=== PATIENT | male | born 1950 | race Caucasian/White ===

== ENCOUNTER 2019-08-07 12:05 | Inpatient (IN) | payer MEDICARE, OTHER ==
[~2019-08-07] VITALS: Ht 170.2 cm; Wt 82.3 kg
--- OUTSIDE RECORDS SUMMARY | 2019-08-07 12:09 | XMS REPORT ---
Author Author [facility] Address Unknown Phone Unavailable Care Team Providers Care Station Worker Name Role Phone Unavailable Unavailable Payers Payer Name Policy Type Policy Number Effective Date Expiration Date Problems This patient has no known problems. Allergies, Adverse Reactions, Alerts Allergy Name Allergy Type Status Severity Reaction(s) Onset Date Inactive Date Treating Clinician Comments No Known Allergies DA Active U 2016-03-13 00:00:00 Medications This patient has no known medications. Results Test Description Test Time Test Comments Text Results Atomic Results Result Comments BASIC METABOLIC PANEL 2019-07-28 17:44:00 SODIUM (test code=NA) 138 mmol/L 136-145 POTASSIUM (test code=K) 4.8 mmol/L 3.5-5.1 CHLORIDE (test code=CL) 104.0 mmol/L 98-107 CARBON DIOXIDE (test code=CO2) 22.0 mmol/L 21-32 ANION GAP (test code=GAP) 16.8 10-20 GLUCOSE (test code=GLU) 168 mg/dL 74-106 BLOOD UREA NITROGEN (test code=BUN) 42 mg/dL 7-18 GLOMERULAR FILTRATION RATE (test code=GFR) 24 mL/min >=60 Estimated GFR by using Modified MDRD formula.Chronic kidney disease is defined as either kidney damageor GFR <60 mL/min/1.73 m2 for >3 months. CREATININE (test code=CREAT) 2.70 mg/dL 0.7-1.3 BUN/CREATININE RATIO (test code=BUN/CREA) 15.6 10-20 CALCIUM (test code=CA) 9.1 mg/dL 8.5-10.1 [id number] 17:44:00* Test Item Value Reference Range Comments TROPONIN-I (test code=TROPI) 0.027 ng/mL 0-0.045 BASIC METABOLIC [id number] 17:36:00* Test Item Value Reference Range Comments SODIUM (test code=NA) 138 mmol/L 136-145 POTASSIUM (test code=K) 4.8 mmol/L 3.5-5.1 CHLORIDE (test code=CL) 104.0 mmol/L 98-107 CARBON DIOXIDE (test code=CO2) mmol/L 21-32 ANION GAP (test code=GAP) 10-20 GLUCOSE (test code=GLU) mg/dL 74-106 BLOOD UREA NITROGEN (test code=BUN) mg/dL 7-18 GLOMERULAR FILTRATION RATE (test code=GFR) mL/min >=60 CREATININE (test code=CREAT) mg/dL 0.7-1.3 BUN/CREATININE RATIO (test code=BUN/CREA) 10-20 CALCIUM (test code=CA) 9.1 mg/dL 8.5-10.1 [id number] 17:36:00* Test Item Value Reference Range Comments TROPONIN-I (test code=TROPI) ng/mL 0-0.045 BASIC METABOLIC [id number] 17:34:00* Test Item Value Reference Range Comments SODIUM (test code=NA) 138 mmol/L 136-145 POTASSIUM (test code=K) 4.8 mmol/L 3.5-5.1 CHLORIDE (test code=CL) 104.0 mmol/L 98-107 CARBON DIOXIDE (test code=CO2) mmol/L 21-32 ANION GAP (test code=GAP) 10-20 GLUCOSE (test code=GLU) mg/dL 74-106 BLOOD UREA NITROGEN (test code=BUN) mg/dL 7-18 GLOMERULAR FILTRATION RATE (test code=GFR) mL/min >=60 CREATININE (test code=CREAT) mg/dL 0.7-1.3 BUN/CREATININE RATIO (test code=BUN/CREA) 10-20 CALCIUM (test code=CA) mg/dL 8.5-10.1 [id number] 17:34:00* Test Item Value Reference Range Comments TROPONIN-I (test code=TROPI) ng/mL 0-0.045 CBC W/O [id number] 17:26:00* Test Item Value Reference Range Comments WHITE BLOOD CELL (test code=WBC) 4.9 K/mm3 4.5-12.5 RED BLOOD CELL (test code=RBC) 4.27 mill/mm3 4.0-5.8 HEMOGLOBIN (test code=HGB) 10.8 gram/dL 13.0-17.5 HEMATOCRIT (test code=HCT) 36.0 % 42.0-52.0 MEAN CELL VOLUME (test code=MCV) 84.3 fL 80-98 MEAN CELL HGB (test code=MCH) 25.3 picogram 27.0-33.0 MEAN CELL HGB CONCETRATION (test code=MCHC) 30.0 gram/dL 33.0-36.0 RED CELL DISTRIBUTION WIDTH (test code=RDW) 18.4 % 11.6-16.2 PLATELET COUNT (test code=PLT) 248 K/mm3 150-450 MEAN PLATELET VOLUME (test code=MPV) 10.5 fL 6.7-11.0 - XR CHEST 1 [id number] 17:16:00 FAX: Shonda Gonzalez,Cindi [phone] [place]: St: [facility] FAX: Luis Felipe Sotelo DO Name: TRACY DIAZ [facility] : 1950 Age/S: 69/M [address] [facility] [address] #: [id number] Loc: Z[place] [address] Phys: Luis Felipe Sotelo DO Acct: [id number] Dis Date: Status: REG ER PHONE #: [phone] Exam Date: 07/28/2019 1703 FAX #: [phone] Reason: WEAKNESS EXAMS: CPT CODE: [id number] XR CHEST 1 V [id number] REASON FOR EXAM: WEAKNESS Exam Order Date: 07/28/2019 4:11 PM Ordering M.D.: Luis Felipe Sotelo DO PROCEDURE: - XR CHEST 1 V COMPARISON: Chest x-ray July 07, 2019 FINDINGS: There are opacities in the lung bases. The mid and upper lungs are clear and the pulmonary vasculature is within normal limits. Cardiomediastinal silhouette is prominent but stable in size. The mediastinal contours are within normal limits. Musculoskeletal structures are unchanged from the prior exam. The visualized upper abdomen is within normal limits. IMPRESSION: Bibasilar opacities may represent a combination of layering effusions with compressive subsegmental atelectasis of the underlying lung bases. However a superimposed consolidation cannot be excluded. Lo cation: HCA at [id number] Reported and signed by: Mc Chen MD CC: Abigail Gonzalez MD; Luis Felipe Sotelo DO Technologist: Edith Espinosa(Klaudia) Trnrafaelrd Date/Time/By: 07/28/2019 (6579) : By: [email or web address] Orig Print D/T: S: 07/28/2019 (8573) PAGE 1 Signed Report [id number] 13:15:00* Test Item Value Reference Range Comments GLUBED (test code=GLUBED) 210 mg/dL 74-106 Performed by certified boom crane operator at [facility] ANTINUCLEAR ANTIBODIES [id number] 12:08:00* Test Item Value Reference Range Comments JENNIFER SCREEN (test code=ANASCR) Negative Negative Performed At: [facility] [id number] Kyle L MD Ph:[phone] AB [id number] 12:08:00* Test Item Value Reference Range Comments AB MITOCHONDRIAL (test code=MITOCHAB) <20.0 Units 0.0-20.0 Negative 0.0 - 20.0 Equivocal 20.1 - 24.9 Positive >24.9Mitochondrial (M2) Antibodies are found in 90-96% ofpatients with primary biliary cirrhosis.Performed At: [facility] [id number] Sanjai MD Ph:[phone] BASIC METABOLIC [id number] 10:34:00* Test Item Value Reference Range Comments SODIUM (test code=NA) 135 mmol/L 136-145 POTASSIUM (test code=K) 4.7 mmol/L 3.5-5.1 CHLORIDE (test code=CL) 102.0 mmol/L 98-107 CARBON DIOXIDE (test code=CO2) 23.0 mmol/L 21-32 ANION GAP (test code=GAP) 14.7 10-20 GLUCOSE (test code=GLU) 134 mg/dL 74-106 BLOOD UREA NITROGEN (test code=BUN) 43 mg/dL 7-18 GLOMERULAR FILTRATION RATE (test code=GFR) 33 mL/min >=60 Estimated GFR by using Modified MDRD formula.Chronic kidney disease is defined as either kidney damageor GFR <60 mL/min/1.73 m2 for >3 months. CREATININE (test code=CREAT) 2.00 mg/dL 0.7-1.3 BUN/CREATININE RATIO (test code=BUN/CREA) 21.5 10-20 CALCIUM (test code=CA) 8.9 mg/dL 8.5-10.1 SPECIMEN COMMENTS: add to blood in lab from this amBASIC METABOLIC PANEL 2019-07-16 10:30:00* Test Item Value Reference Range Comments SODIUM (test code=NA) 135 mmol/L 136-145 POTASSIUM (test code=K) 4.7 mmol/L 3.5-5.1 CHLORIDE (test code=CL) 102.0 mmol/L 98-107 CARBON DIOXIDE (test code=CO2) mmol/L 21-32 ANION GAP (test code=GAP) 10-20 GLUCOSE (test code=GLU) mg/dL 74-106 BLOOD UREA NITROGEN (test code=BUN) mg/dL 7-18 GLOMERULAR FILTRATION RATE (test code=GFR) mL/min >=60 CREATININE (test code=CREAT) mg/dL 0.7-1.3 BUN/CREATININE RATIO (test code=BUN/CREA) 10-20 CALCIUM (test code=CA) mg/dL 8.5-10.1 SPECIMEN COMMENTS: add to blood in lab from this [id number] 05:57:00* Test Item Value Reference Range Comments GLUBED (test code=GLUBED) 128 mg/dL 74-106 Performed by certified boom crane operator at [facility] HEPATIC FUNCTION [id number] 05:31:00* Test Item Value Reference Range Comments TOTAL PROTEIN (test code=PROT) 6.2 gram/dL 6.4-8.2 ALBUMIN (test code=ALB) 2.8 g/dL 3.4-5.0 GLOBULIN (test code=GLOB) 3.4 gram/dL 2.7-4.2 ALBUMIN/GLOBULIN RATIO (test code=A/G) 0.8 0.75-1.50 BILIRUBIN TOTAL (test code=BILT) 1.80 mg/dL 0.0-1.0 BILIRUBIN DIRECT (test code=BILD) 1.00 mg/dL 0.0-0.20 SGOT/AST (test code=AST) 35 IUnit/L 15-37 SGPT/ALT (test code=ALT) 217 IUnit/L 12-78 ALKALINE PHOSPHATASE TOTAL (test code=ALKP) 596 IUnit/L 45-117 Note change in reference range due to change in reagent. [id number] 21:29:00* Test Item Value Reference Range Comments GLUBED (test code=GLUBED) 106 mg/dL 74-106 Performed by certified boom crane operator at [facility] [id number] 17:35:00* Test Item Value Reference Range Comments GLUBED (test code=GLUBED) 195 mg/dL 74-106 Performed by certified boom crane operator at [facility] [id number] 12:38:00* Test Item Value Reference Range Comments GLUBED (test code=GLUBED) 187 mg/dL 74-106 Performed by certified boom crane operator at [facility] ANTINUCLEAR ANTIBODIES [id number] 09:08:00* Test Item Value Reference Range Comments JENNIFER SCREEN (test code=ANASCR) Negative Negative Performed At: [facility] [id number] Michael Russell MD Ph:[phone] AB [id number] 09:08:00* Test Item Value Reference Range Comments AB MITOCHONDRIAL (test code=MITOCHAB) EIA <1.0 CBC W/AUTO [id number] 06:37:00* Test Item Value Reference Range Comments WHITE BLOOD CELL (test code=WBC) 7.2 K/mm3 4.5-12.5 RED BLOOD CELL (test code=RBC) 4.51 mill/mm3 4.0-5.8 HEMOGLOBIN (test code=HGB) 11.2 gram/dL 13.0-17.5 HEMATOCRIT (test code=HCT) 37.9 % 42.0-52.0 MEAN CELL VOLUME (test code=MCV) 84.0 fL 80-98 MEAN CELL HGB (test code=MCH) 24.8 picogram 27.0-33.0 MEAN CELL HGB CONCETRATION (test code=MCHC) 29.6 gram/dL 33.0-36.0 RED CELL DISTRIBUTION WIDTH (test code=RDW) 16.9 % 11.6-16.2 RED CELL DISTRIBUTION WIDTH SD (test code=RDW-SD) 50.4 fL 37.0-51.0 PLATELET COUNT (test code=PLT) 123 K/mm3 150-450 MEAN PLATELET VOLUME (test code=MPV) 12.4 fL 6.7-11.0 NEUTROPHIL % (test code=NT%) 65.3 % 39.0-69.0 IMMATURE GRANULOCYTE % (test code=IG%) 3.6 % 0.0-5.0 LYMPHOCYTE % (test code=LY%) 19.1 % 25.0-55.0 MONOCYTE % (test code=MO%) 9.8 % 0.0-10.0 EOSINOPHIL % (test code=EO%) 1.5 % 0.0-5.0 BASOPHIL % (test code=BA%) 0.7 % 0.0-1.0 NUCLEATED RBC % (test code=NRBC%) 0.0 % 0-0 NEUTROPHIL # (test code=NT#) 4.70 K/mm3 1.8-7.7 IMMATURE GRANULOCYTE # (test code=IG#) 0.26 x10 3/uL 0-0.03 LYMPHOCYTE # (test code=LY#) 1.38 K/mm3 1.0-5.0 MONOCYTE # (test code=MO#) 0.71 K/mm3 0-0.8 EOSINOPHIL # (test code=EO#) 0.11 K/mm3 0.0-0.5 BASOPHIL # (test code=BA#) 0.05 K/mm3 0.0-0.2 NUCLEATED RBC # (test code=NRBC#) 0.00 K/mm3 0.0-0.1 MANUAL DIFF REQUIRED (test code=MDIFF) NO, ONLY SCAN NEEDED DIFFERENTIAL [id number] 06:37:00* Test Item Value Reference Range Comments STAIN ACCEPTABILITY (test code=STN ACCEPTABLE) STAIN ACCEPTABLE ANISOCYTOSIS (test code=ANISO) 2+ MICROCYTOSIS (test code=MICR) 1+ MORPHOLOGY COMMENT (test code=MOC) TEST NOT PERFORMED PLATELET ESTIMATE (test code=PLTEST) SLIGHTLY DECREASED PLATELET MORPHOLOGY (test code=PLTMORPH) NORMAL COMPREHENSIVE METABOLIC [id number] 06:20:00* Test Item Value Reference Range Comments SODIUM (test code=NA) 136 mmol/L 136-145 POTASSIUM (test code=K) 4.3 mmol/L 3.5-5.1 CHLORIDE (test code=CL) 106.0 mmol/L 98-107 CARBON DIOXIDE (test code=CO2) 21.0 mmol/L 21-32 ANION GAP (test code=GAP) 13.3 10-20 GLUCOSE (test code=GLU) 147 mg/dL 74-106 BLOOD UREA NITROGEN (test code=BUN) 41 mg/dL 7-18 GLOMERULAR FILTRATION RATE (test code=GFR) 43 mL/min >=60 Estimated GFR by using Modified MDRD formula.Chronic kidney disease is defined as either kidney damageor GFR <60 mL/min/1.73 m2 for >3 months. CREATININE (test code=CREAT) 1.60 mg/dL 0.7-1.3 BUN/CREATININE RATIO (test code=BUN/CREA) 25.6 10-20 TOTAL PROTEIN (test code=PROT) 5.0 gram/dL 6.4-8.2 ALBUMIN (test code=ALB) 2.6 g/dL 3.4-5.0 GLOBULIN (test code=GLOB) 2.4 gram/dL 2.7-4.2 ALBUMIN/GLOBULIN RATIO (test code=A/G) 1.1 0.75-1.50 CALCIUM (test code=CA) 8.5 mg/dL 8.5-10.1 BILIRUBIN TOTAL (test code=BILT) 1.60 mg/dL 0.0-1.0 SGOT/AST (test code=AST) 52 IUnit/L 15-37 SGPT/ALT (test code=ALT) 237 IUnit/L 12-78 ALKALINE PHOSPHATASE TOTAL (test code=ALKP) 574 IUnit/L 45-117 Note change in reference range due to change in reagent. HEPATIC FUNCTION [id number] 06:20:00* Test Item Value Reference Range Comments BILIRUBIN DIRECT (test code=BILD) 1.07 mg/dL 0.0-0.20 COMPREHENSIVE METABOLIC [id number] 06:12:00* Test Item Value Reference Range Comments SODIUM (test code=NA) 136 mmol/L 136-145 POTASSIUM (test code=K) 4.3 mmol/L 3.5-5.1 CHLORIDE (test code=CL) 106.0 mmol/L 98-107 CARBON DIOXIDE (test code=CO2) mmol/L 21-32 ANION GAP (test code=GAP) 10-20 GLUCOSE (test code=GLU) mg/dL 74-106 BLOOD UREA NITROGEN (test code=BUN) mg/dL 7-18 GLOMERULAR FILTRATION RATE (test code=GFR) mL/min >=60 CREATININE (test code=CREAT) mg/dL 0.7-1.3 BUN/CREATININE RATIO (test code=BUN/CREA) 10-20 TOTAL PROTEIN (test code=PROT) gram/dL 6.4-8.2 ALBUMIN (test code=ALB) g/dL 3.4-5.0 GLOBULIN (test code=GLOB) gram/dL 2.7-4.2 ALBUMIN/GLOBULIN RATIO (test code=A/G) 0.75-1.50 CALCIUM (test code=CA) mg/dL 8.5-10.1 BILIRUBIN TOTAL (test code=BILT) mg/dL 0.0-1.0 SGOT/AST (test code=AST) IUnit/L 15-37 SGPT/ALT (test code=ALT) IUnit/L 12-78 ALKALINE PHOSPHATASE TOTAL (test code=ALKP) IUnit/L 45-117 HEPATIC FUNCTION [id number] 06:12:00* Test Item Value Reference Range Comments BILIRUBIN DIRECT (test code=BILD) mg/dL 0.0-0.20 CBC W/AUTO [id number] 06:07:00* Test Item Value Reference Range Comments WHITE BLOOD CELL (test code=WBC) 7.2 K/mm3 4.5-12.5 RED BLOOD CELL (test code=RBC) 4.51 mill/mm3 4.0-5.8 HEMOGLOBIN (test code=HGB) 11.2 gram/dL 13.0-17.5 HEMATOCRIT (test code=HCT) 37.9 % 42.0-52.0 MEAN CELL VOLUME (test code=MCV) 84.0 fL 80-98 MEAN CELL HGB (test code=MCH) 24.8 picogram 27.0-33.0 MEAN CELL HGB CONCETRATION (test code=MCHC) 29.6 gram/dL 33.0-36.0 RED CELL DISTRIBUTION WIDTH (test code=RDW) 16.9 % 11.6-16.2 RED CELL DISTRIBUTION WIDTH SD (test code=RDW-SD) 50.4 fL 37.0-51.0 PLATELET COUNT (test code=PLT) 123 K/mm3 150-450 MEAN PLATELET VOLUME (test code=MPV) 12.4 fL 6.7-11.0 NEUTROPHIL % (test code=NT%) 65.3 % 39.0-69.0 IMMATURE GRANULOCYTE % (test code=IG%) 3.6 % 0.0-5.0 LYMPHOCYTE % (test code=LY%) 19.1 % 25.0-55.0 MONOCYTE % (test code=MO%) 9.8 % 0.0-10.0 EOSINOPHIL % (test code=EO%) 1.5 % 0.0-5.0 BASOPHIL % (test code=BA%) 0.7 % 0.0-1.0 NUCLEATED RBC % (test code=NRBC%) 0.0 % 0-0 NEUTROPHIL # (test code=NT#) 4.70 K/mm3 1.8-7.7 IMMATURE GRANULOCYTE # (test code=IG#) 0.26 x10 3/uL 0-0.03 LYMPHOCYTE # (test code=LY#) 1.38 K/mm3 1.0-5.0 MONOCYTE # (test code=MO#) 0.71 K/mm3 0-0.8 EOSINOPHIL # (test code=EO#) 0.11 K/mm3 0.0-0.5 BASOPHIL # (test code=BA#) 0.05 K/mm3 0.0-0.2 NUCLEATED RBC # (test code=NRBC#) 0.00 K/mm3 0.0-0.1 MANUAL DIFF REQUIRED (test code=MDIFF) NO, ONLY SCAN NEEDED DIFFERENTIAL [id number] 06:07:00* Test Item Value Reference Range Comments STAIN ACCEPTABILITY (test code=STN ACCEPTABLE) CABOT RINGS (test code=CAB) MORPHOLOGY COMMENT (test code=MOC) PLATELET ESTIMATE (test code=PLTEST) PLATELET MORPHOLOGY (test code=PLTMORPH) CBC W/AUTO [id number] 06:07:00* Test Item Value Reference Range Comments WHITE BLOOD CELL (test code=WBC) 7.2 K/mm3 4.5-12.5 RED BLOOD CELL (test code=RBC) 4.51 mill/mm3 4.0-5.8 HEMOGLOBIN (test code=HGB) 11.2 gram/dL 13.0-17.5 HEMATOCRIT (test code=HCT) 37.9 % 42.0-52.0 MEAN CELL VOLUME (test code=MCV) 84.0 fL 80-98 MEAN CELL HGB (test code=MCH) 24.8 picogram 27.0-33.0 MEAN CELL HGB CONCETRATION (test code=MCHC) 29.6 gram/dL 33.0-36.0 RED CELL DISTRIBUTION WIDTH (test code=RDW) 16.9 % 11.6-16.2 RED CELL DISTRIBUTION WIDTH SD (test code=RDW-SD) 50.4 fL 37.0-51.0 PLATELET COUNT (test code=PLT) 123 K/mm3 150-450 MEAN PLATELET VOLUME (test code=MPV) 12.4 fL 6.7-11.0 NEUTROPHIL % (test code=NT%) 65.3 % 39.0-69.0 IMMATURE GRANULOCYTE % (test code=IG%) 3.6 % 0.0-5.0 LYMPHOCYTE % (test code=LY%) 19.1 % 25.0-55.0 MONOCYTE % (test code=MO%) 9.8 % 0.0-10.0 EOSINOPHIL % (test code=EO%) 1.5 % 0.0-5.0 BASOPHIL % (test code=BA%) 0.7 % 0.0-1.0 NUCLEATED RBC % (test code=NRBC%) 0.0 % 0-0 NEUTROPHIL # (test code=NT#) 4.70 K/mm3 1.8-7.7 IMMATURE GRANULOCYTE # (test code=IG#) 0.26 x10 3/uL 0-0.03 LYMPHOCYTE # (test code=LY#) 1.38 K/mm3 1.0-5.0 MONOCYTE # (test code=MO#) 0.71 K/mm3 0-0.8 EOSINOPHIL # (test code=EO#) 0.11 K/mm3 0.0-0.5 BASOPHIL # (test code=BA#) 0.05 K/mm3 0.0-0.2 NUCLEATED RBC # (test code=NRBC#) 0.00 K/mm3 0.0-0.1 MANUAL DIFF REQUIRED (test code=MDIFF) NO, ONLY SCAN NEEDED DIFFERENTIAL [id number] 06:07:00* Test Item Value Reference Range Comments STAIN ACCEPTABILITY (test code=STN ACCEPTABLE) MORPHOLOGY COMMENT (test code=MOC) PLATELET ESTIMATE (test code=PLTEST) PLATELET MORPHOLOGY (test code=PLTMORPH) CBC W/AUTO [id number] 06:07:00* Test Item Value Reference Range Comments WHITE BLOOD CELL (test code=WBC) 7.2 K/mm3 4.5-12.5 RED BLOOD CELL (test code=RBC) 4.51 mill/mm3 4.0-5.8 HEMOGLOBIN (test code=HGB) 11.2 gram/dL 13.0-17.5 HEMATOCRIT (test code=HCT) 37.9 % 42.0-52.0 MEAN CELL VOLUME (test code=MCV) 84.0 fL 80-98 MEAN CELL HGB (test code=MCH) 24.8 picogram 27.0-33.0 MEAN CELL HGB CONCETRATION (test code=MCHC) 29.6 gram/dL 33.0-36.0 RED CELL DISTRIBUTION WIDTH (test code=RDW) 16.9 % 11.6-16.2 RED CELL DISTRIBUTION WIDTH SD (test code=RDW-SD) 50.4 fL 37.0-51.0 PLATELET COUNT (test code=PLT) 123 K/mm3 150-450 MEAN PLATELET VOLUME (test code=MPV) 12.4 fL 6.7-11.0 NEUTROPHIL % (test code=NT%) 65.3 % 39.0-69.0 IMMATURE GRANULOCYTE % (test code=IG%) 3.6 % 0.0-5.0 LYMPHOCYTE % (test code=LY%) 19.1 % 25.0-55.0 MONOCYTE % (test code=MO%) 9.8 % 0.0-10.0 EOSINOPHIL % (test code=EO%) 1.5 % 0.0-5.0 BASOPHIL % (test code=BA%) 0.7 % 0.0-1.0 NUCLEATED RBC % (test code=NRBC%) 0.0 % 0-0 NEUTROPHIL # (test code=NT#) 4.70 K/mm3 1.8-7.7 IMMATURE GRANULOCYTE # (test code=IG#) 0.26 x10 3/uL 0-0.03 LYMPHOCYTE # (test code=LY#) 1.38 K/mm3 1.0-5.0 MONOCYTE # (test code=MO#) 0.71 K/mm3 0-0.8 EOSINOPHIL # (test code=EO#) 0.11 K/mm3 0.0-0.5 BASOPHIL # (test code=BA#) 0.05 K/mm3 0.0-0.2 NUCLEATED RBC # (test code=NRBC#) 0.00 K/mm3 0.0-0.1 MANUAL DIFF REQUIRED (test code=MDIFF) NO, ONLY SCAN NEEDED DIFFERENTIAL [id number] 06:07:00* Test Item Value Reference Range Comments STAIN ACCEPTABILITY (test code=STN ACCEPTABLE) MORPHOLOGY COMMENT (test code=MOC) PLATELET ESTIMATE (test code=PLTEST) PLATELET MORPHOLOGY (test code=PLTMORPH) CBC W/AUTO [id number] 06:07:00* Test Item Value Reference Range Comments WHITE BLOOD CELL (test code=WBC) 7.2 K/mm3 4.5-12.5 RED BLOOD CELL (test code=RBC) 4.51 mill/mm3 4.0-5.8 HEMOGLOBIN (test code=HGB) 11.2 gram/dL 13.0-17.5 HEMATOCRIT (test code=HCT) 37.9 % 42.0-52.0 MEAN CELL VOLUME (test code=MCV) 84.0 fL 80-98 MEAN CELL HGB (test code=MCH) 24.8 picogram 27.0-33.0 MEAN CELL HGB CONCETRATION (test code=MCHC) 29.6 gram/dL 33.0-36.0 RED CELL DISTRIBUTION WIDTH (test code=RDW) 16.9 % 11.6-16.2 RED CELL DISTRIBUTION WIDTH SD (test code=RDW-SD) 50.4 fL 37.0-51.0 PLATELET COUNT (test code=PLT) 123 K/mm3 150-450 MEAN PLATELET VOLUME (test code=MPV) 12.4 fL 6.7-11.0 NEUTROPHIL % (test code=NT%) 65.3 % 39.0-69.0 IMMATURE GRANULOCYTE % (test code=IG%) 3.6 % 0.0-5.0 LYMPHOCYTE % (test code=LY%) 19.1 % 25.0-55.0 MONOCYTE % (test code=MO%) 9.8 % 0.0-10.0 EOSINOPHIL % (test code=EO%) 1.5 % 0.0-5.0 BASOPHIL % (test code=BA%) 0.7 % 0.0-1.0 NUCLEATED RBC % (test code=NRBC%) 0.0 % 0-0 NEUTROPHIL # (test code=NT#) 4.70 K/mm3 1.8-7.7 IMMATURE GRANULOCYTE # (test code=IG#) 0.26 x10 3/uL 0-0.03 LYMPHOCYTE # (test code=LY#) 1.38 K/mm3 1.0-5.0 MONOCYTE # (test code=MO#) 0.71 K/mm3 0-0.8 EOSINOPHIL # (test code=EO#) 0.11 K/mm3 0.0-0.5 BASOPHIL # (test code=BA#) 0.05 K/mm3 0.0-0.2 NUCLEATED RBC # (test code=NRBC#) 0.00 K/mm3 0.0-0.1 MANUAL DIFF REQUIRED (test code=MDIFF) NO, ONLY SCAN NEEDED DIFFERENTIAL [id number] 06:07:00* Test Item Value Reference Range Comments STAIN ACCEPTABILITY (test code=STN ACCEPTABLE) CABOT RINGS (test code=CAB) MORPHOLOGY COMMENT (test code=MOC) PLATELET ESTIMATE (test code=PLTEST) PLATELET MORPHOLOGY (test code=PLTMORPH) [id number] 05:56:00* Test Item Value Reference Range Comments GLUBED (test code=GLUBED) 148 mg/dL 74-106 Performed by certified boom crane operator at [facility] [id number] 20:19:00* Test Item Value Reference Range Comments GLUBED (test code=GLUBED) 142 mg/dL 74-106 Performed by certified boom crane operator at [facility] HEPATIC FUNCTION [id number] 16:47:00* Test Item Value Reference Range Comments TOTAL PROTEIN (test code=PROT) 5.6 gram/dL 6.4-8.2 ALBUMIN (test code=ALB) 2.8 g/dL 3.4-5.0 GLOBULIN (test code=GLOB) 2.8 gram/dL 2.7-4.2 ALBUMIN/GLOBULIN RATIO (test code=A/G) 1.0 0.75-1.50 BILIRUBIN TOTAL (test code=BILT) 1.60 mg/dL 0.0-1.0 BILIRUBIN DIRECT (test code=BILD) 1.12 mg/dL 0.0-0.20 SGOT/AST (test code=AST) 71 IUnit/L 15-37 SGPT/ALT (test code=ALT) 318 IUnit/L 12-78 ALKALINE PHOSPHATASE TOTAL (test code=ALKP) 635 IUnit/L 45-117 Note change in reference range due to change in reagent. SPECIMEN COMMENTS: add to labs from this [id number] 16:39:00* Test Item Value Reference Range Comments GLUBED (test code=GLUBED) 77 mg/dL 74-106 Performed by certified boom crane operator at [facility] [id number] 11:41:00* Test Item Value Reference Range Comments GLUBED (test code=GLUBED) 260 mg/dL 74-106 Performed by certified boom crane operator at [facility] BASIC METABOLIC [id number] 08:55:00* Test Item Value Reference Range Comments SODIUM (test code=NA) 135 mmol/L 136-145 POTASSIUM (test code=K) 4.9 mmol/L 3.5-5.1 CHLORIDE (test code=CL) 103.0 mmol/L 98-107 CARBON DIOXIDE (test code=CO2) 20.0 mmol/L 21-32 ANION GAP (test code=GAP) 16.9 10-20 GLUCOSE (test code=GLU) 174 mg/dL 74-106 BLOOD UREA NITROGEN (test code=BUN) 43 mg/dL 7-18 GLOMERULAR FILTRATION RATE (test code=GFR) 40 mL/min >=60 Estimated GFR by using Modified MDRD formula.Chronic kidney disease is defined as either kidney damageor GFR <60 mL/min/1.73 m2 for >3 months. CREATININE (test code=CREAT) 1.70 mg/dL 0.7-1.3 BUN/CREATININE RATIO (test code=BUN/CREA) 25.3 10-20 CALCIUM (test code=CA) 8.8 mg/dL 8.5-10.1 BASIC METABOLIC [id number] 08:50:00* Test Item Value Reference Range Comments SODIUM (test code=NA) 135 mmol/L 136-145 POTASSIUM (test code=K) 4.9 mmol/L 3.5-5.1 CHLORIDE (test code=CL) 103.0 mmol/L 98-107 CARBON DIOXIDE (test code=CO2) mmol/L 21-32 ANION GAP (test code=GAP) 10-20 GLUCOSE (test code=GLU) mg/dL 74-106 BLOOD UREA NITROGEN (test code=BUN) mg/dL 7-18 GLOMERULAR FILTRATION RATE (test code=GFR) mL/min >=60 CREATININE (test code=CREAT) mg/dL 0.7-1.3 BUN/CREATININE RATIO (test code=BUN/CREA) 10-20 CALCIUM (test code=CA) 8.8 mg/dL 8.5-10.1 CBC W/AUTO [id number] 08:30:00* Test Item Value Reference Range Comments WHITE BLOOD CELL (test code=WBC) 8.1 K/mm3 4.5-12.5 RED BLOOD CELL (test code=RBC) 4.69 mill/mm3 4.0-5.8 HEMOGLOBIN (test code=HGB) 11.6 gram/dL 13.0-17.5 HEMATOCRIT (test code=HCT) 37.7 % 42.0-52.0 MEAN CELL VOLUME (test code=MCV) 80.4 fL 80-98 MEAN CELL HGB (test code=MCH) 24.7 picogram 27.0-33.0 MEAN CELL HGB CONCETRATION (test code=MCHC) 30.8 gram/dL 33.0-36.0 RED CELL DISTRIBUTION WIDTH (test code=RDW) 16.6 % 11.6-16.2 RED CELL DISTRIBUTION WIDTH SD (test code=RDW-SD) 46.4 fL 37.0-51.0 PLATELET COUNT (test code=PLT) 117 K/mm3 150-450 MEAN PLATELET VOLUME (test code=MPV) 12.5 fL 6.7-11.0 NEUTROPHIL % (test code=NT%) 67.9 % 39.0-69.0 IMMATURE GRANULOCYTE % (test code=IG%) 1.9 % 0.0-5.0 LYMPHOCYTE % (test code=LY%) 17.3 % 25.0-55.0 MONOCYTE % (test code=MO%) 10.8 % 0.0-10.0 EOSINOPHIL % (test code=EO%) 1.7 % 0.0-5.0 BASOPHIL % (test code=BA%) 0.4 % 0.0-1.0 NUCLEATED RBC % (test code=NRBC%) 0.0 % 0-0 NEUTROPHIL # (test code=NT#) 5.49 K/mm3 1.8-7.7 IMMATURE GRANULOCYTE # (test code=IG#) 0.15 x10 3/uL 0-0.03 LYMPHOCYTE # (test code=LY#) 1.40 K/mm3 1.0-5.0 MONOCYTE # (test code=MO#) 0.87 K/mm3 0-0.8 EOSINOPHIL # (test code=EO#) 0.14 K/mm3 0.0-0.5 BASOPHIL # (test code=BA#) 0.03 K/mm3 0.0-0.2 NUCLEATED RBC # (test code=NRBC#) 0.00 K/mm3 0.0-0.1 [id number] 05:52:00* Test Item Value Reference Range Comments GLUBED (test code=GLUBED) 162 mg/dL 74-106 Performed by certified boom crane operator at [facility] [id number] 21:34:00* Test Item Value Reference Range Comments GLUBED (test code=GLUBED) 157 mg/dL 74-106 Performed by certified boom crane operator at [facility] [id number] 17:33:00* Test Item Value Reference Range Comments GLUBED (test code=GLUBED) 61 mg/dL 74-106 Performed by certified boom crane operator at [facility] [id number] 17:00:00* Test Item Value Reference Range Comments GLUBED (test code=GLUBED) 64 mg/dL 74-106 Performed by certified boom crane operator at [facility] [id number] 11:42:00* Test Item Value Reference Range Comments GLUBED (test code=GLUBED) 357 mg/dL 74-106 Performed by certified boom crane operator at [facility] [id number] 05:26:00* Test Item Value Reference Range Comments GLUBED (test code=GLUBED) 233 mg/dL 74-106 Performed by certified boom crane operator at [facility] COMPREHENSIVE METABOLIC [id number] 03:05:00* Test Item Value Reference Range Comments SODIUM (test code=NA) 134 mmol/L 136-145 POTASSIUM (test code=K) 4.6 mmol/L 3.5-5.1 CHLORIDE (test code=CL) 102.0 mmol/L 98-107 CARBON DIOXIDE (test code=CO2) 24.0 mmol/L 21-32 ANION GAP (test code=GAP) 12.6 10-20 GLUCOSE (test code=GLU) 220 mg/dL 74-106 BLOOD UREA NITROGEN (test code=BUN) 42 mg/dL 7-18 GLOMERULAR FILTRATION RATE (test code=GFR) 38 mL/min >=60 Estimated GFR by using Modified MDRD formula.Chronic kidney disease is defined as either kidney damageor GFR <60 mL/min/1.73 m2 for >3 months. CREATININE (test code=CREAT) 1.80 mg/dL 0.7-1.3 BUN/CREATININE RATIO (test code=BUN/CREA) 23.3 10-20 TOTAL PROTEIN (test code=PROT) 5.6 gram/dL 6.4-8.2 ALBUMIN (test code=ALB) 2.6 g/dL 3.4-5.0 GLOBULIN (test code=GLOB) 3.0 gram/dL 2.7-4.2 ALBUMIN/GLOBULIN RATIO (test code=A/G) 0.9 0.75-1.50 CALCIUM (test code=CA) 8.6 mg/dL 8.5-10.1 BILIRUBIN TOTAL (test code=BILT) 1.90 mg/dL 0.0-1.0 SGOT/AST (test code=AST) 60 IUnit/L 15-37 SGPT/ALT (test code=ALT) 355 IUnit/L 12-78 ALKALINE PHOSPHATASE TOTAL (test code=ALKP) 534 IUnit/L 45-117 Note change in reference range due to change in reagent. BILIRUBIN [id number] 03:05:00* Test Item Value Reference Range Comments BILIRUBIN DIRECT (test code=BILD) 1.22 mg/dL 0.0-0.20 GAMMA GLUTAMYL [id number] 03:05:00* Test Item Value Reference Range Comments GAMMA GLUTAMYL TRANSPEPTIDASE (test code=GGT) 691 Unit/L 15-85 CBC W/AUTO [id number] 02:45:00* Test Item Value Reference Range Comments WHITE BLOOD CELL (test code=WBC) 6.7 K/mm3 4.5-12.5 RED BLOOD CELL (test code=RBC) 4.37 mill/mm3 4.0-5.8 HEMOGLOBIN (test code=HGB) 10.8 gram/dL 13.0-17.5 HEMATOCRIT (test code=HCT) 35.2 % 42.0-52.0 MEAN CELL VOLUME (test code=MCV) 80.5 fL 80-98 MEAN CELL HGB (test code=MCH) 24.7 picogram 27.0-33.0 MEAN CELL HGB CONCETRATION (test code=MCHC) 30.7 gram/dL 33.0-36.0 RED CELL DISTRIBUTION WIDTH (test code=RDW) 15.9 % 11.6-16.2 RED CELL DISTRIBUTION WIDTH SD (test code=RDW-SD) 45.4 fL 37.0-51.0 PLATELET COUNT (test code=PLT) 93 K/mm3 150-450 MEAN PLATELET VOLUME (test code=MPV) 12.5 fL 6.7-11.0 NEUTROPHIL % (test code=NT%) 64.2 % 39.0-69.0 IMMATURE GRANULOCYTE % (test code=IG%) 1.9 % 0.0-5.0 LYMPHOCYTE % (test code=LY%) 19.4 % 25.0-55.0 MONOCYTE % (test code=MO%) 11.6 % 0.0-10.0 EOSINOPHIL % (test code=EO%) 2.5 % 0.0-5.0 BASOPHIL % (test code=BA%) 0.4 % 0.0-1.0 NUCLEATED RBC % (test code=NRBC%) 0.0 % 0-0 NEUTROPHIL # (test code=NT#) 4.30 K/mm3 1.8-7.7 IMMATURE GRANULOCYTE # (test code=IG#) 0.13 x10 3/uL 0-0.03 LYMPHOCYTE # (test code=LY#) 1.30 K/mm3 1.0-5.0 MONOCYTE # (test code=MO#) 0.78 K/mm3 0-0.8 EOSINOPHIL # (test code=EO#) 0.17 K/mm3 0.0-0.5 BASOPHIL # (test code=BA#) 0.03 K/mm3 0.0-0.2 NUCLEATED RBC # (test code=NRBC#) 0.00 K/mm3 0.0-0.1 MANUAL DIFF REQUIRED (test code=MDIFF) NO COMPREHENSIVE METABOLIC [id number] 02:38:00* Test Item Value Reference Range Comments SODIUM (test code=NA) 134 mmol/L 136-145 POTASSIUM (test code=K) 4.6 mmol/L 3.5-5.1 CHLORIDE (test code=CL) 102.0 mmol/L 98-107 CARBON DIOXIDE (test code=CO2) mmol/L 21-32 ANION GAP (test code=GAP) 10-20 GLUCOSE (test code=GLU) mg/dL 74-106 BLOOD UREA NITROGEN (test code=BUN) mg/dL 7-18 GLOMERULAR FILTRATION RATE (test code=GFR) mL/min >=60 CREATININE (test code=CREAT) mg/dL 0.7-1.3 BUN/CREATININE RATIO (test code=BUN/CREA) 10-20 TOTAL PROTEIN (test code=PROT) gram/dL 6.4-8.2 ALBUMIN (test code=ALB) g/dL 3.4-5.0 GLOBULIN (test code=GLOB) gram/dL 2.7-4.2 ALBUMIN/GLOBULIN RATIO (test code=A/G) 0.75-1.50 CALCIUM (test code=CA) mg/dL 8.5-10.1 BILIRUBIN TOTAL (test code=BILT) mg/dL 0.0-1.0 SGOT/AST (test code=AST) IUnit/L 15-37 SGPT/ALT (test code=ALT) IUnit/L 12-78 ALKALINE PHOSPHATASE TOTAL (test code=ALKP) IUnit/L 45-117 BILIRUBIN [id number] 02:38:00* Test Item Value Reference Range Comments BILIRUBIN DIRECT (test code=BILD) mg/dL 0.0-0.20 GAMMA GLUTAMYL [id number] 02:38:00* Test Item Value Reference Range Comments GAMMA GLUTAMYL TRANSPEPTIDASE (test code=GGT) Unit/L 15-85 [id number] 20:53:00* Test Item Value Reference Range Comments GLUBED (test code=GLUBED) 130 mg/dL 74-106 Performed by certified boom crane operator at [facility] [id number] 17:29:00* Test Item Value Reference Range Comments GLUBED (test code=GLUBED) 202 mg/dL 74-106 Performed by certified boom crane operator at [facility] [id number] 17:28:00* Test Item Value Reference Range Comments GLUBED (test code=GLUBED) 223 mg/dL 74-106 Performed by certified boom crane operator at [facility] [id number] 06:51:00* Test Item Value Reference Range Comments GLUBED (test code=GLUBED) 237 mg/dL 74-106 [facility] certified boom crane [facility] HEPATIC FUNCTION [id number] 05:27:00* Test Item Value Reference Range Comments TOTAL PROTEIN (test code=PROT) 5.5 gram/dL 6.4-8.2 ALBUMIN (test code=ALB) 2.5 g/dL 3.4-5.0 GLOBULIN (test code=GLOB) 3.0 gram/dL 2.7-4.2 ALBUMIN/GLOBULIN RATIO (test code=A/G) 0.8 0.75-1.50 BILIRUBIN TOTAL (test code=BILT) 2.10 mg/dL 0.0-1.0 BILIRUBIN DIRECT (test code=BILD) 1.00 mg/dL 0.0-0.20 SGOT/AST (test code=AST) 114 IUnit/L 15-37 SGPT/ALT (test code=ALT) 446 IUnit/L 12-78 ALKALINE PHOSPHATASE TOTAL (test code=ALKP) 542 IUnit/L 45-117 Note change in reference range due to change in reagent. [id number] 20:55:00* Test Item Value Reference Range Comments GLUBED (test code=GLUBED) 157 mg/dL 74-106 [facility] certified boom crane operator [facility]~ [id number] 16:41:00* Test Item Value Reference Range Comments GLUBED (test code=GLUBED) 131 mg/dL 74-106 Performed by certified boom crane operator at [facility] [id number] 16:41:00* Test Item Value Reference Range Comments GLUBED (test code=GLUBED) 63 mg/dL 74-106 Performed by certified boom crane operator at [facility] [id number] 12:39:00* Test Item Value Reference Range Comments GLUBED (test code=GLUBED) 187 mg/dL 74-106 Performed by certified boom crane operator at [facility] [id number] 06:08:00* Test Item Value Reference Range Comments GLUBED (test code=GLUBED) 262 mg/dL 74-106 Performed by certified boom crane operator at [facility] BASIC METABOLIC [id number] 03:01:00* Test Item Value Reference Range Comments SODIUM (test code=NA) 136 mmol/L 136-145 POTASSIUM (test code=K) 4.1 mmol/L 3.5-5.1 CHLORIDE (test code=CL) 105.0 mmol/L 98-107 CARBON DIOXIDE (test code=CO2) 24.0 mmol/L 21-32 ANION GAP (test code=GAP) 11.1 10-20 GLUCOSE (test code=GLU) 206 mg/dL 74-106 BLOOD UREA NITROGEN (test code=BUN) 48 mg/dL 7-18 GLOMERULAR FILTRATION RATE (test code=GFR) 28 mL/min >=60 Estimated GFR by using Modified MDRD formula.Chronic kidney disease is defined as either kidney damageor GFR <60 mL/min/1.73 m2 for >3 months. CREATININE (test code=CREAT) 2.30 mg/dL 0.7-1.3 BUN/CREATININE RATIO (test code=BUN/CREA) 20.9 10-20 CALCIUM (test code=CA) 7.8 mg/dL 8.5-10.1 HEPATIC FUNCTION [id number] 03:01:00* Test Item Value Reference Range Comments TOTAL PROTEIN (test code=PROT) 4.8 gram/dL 6.4-8.2 ALBUMIN (test code=ALB) 2.2 g/dL 3.4-5.0 GLOBULIN (test code=GLOB) 2.6 gram/dL 2.7-4.2 ALBUMIN/GLOBULIN RATIO (test code=A/G) 0.9 0.75-1.50 BILIRUBIN TOTAL (test code=BILT) 2.10 mg/dL 0.0-1.0 BILIRUBIN DIRECT (test code=BILD) 1.41 mg/dL 0.0-0.20 SGOT/AST (test code=AST) 138 IUnit/L 15-37 SGPT/ALT (test code=ALT) 516 IUnit/L 12-78 ALKALINE PHOSPHATASE TOTAL (test code=ALKP) 404 IUnit/L 45-117 Note change in reference range due to change in reagent. [id number] 03:01:00* Test Item Value Reference Range Comments PHOSPHORUS (test code=PHOS) 2.5 mg/dL 2.5-4.9 [id number] 03:01:00* Test Item Value Reference Range Comments MAGNESIUM (test code=MAG) 1.7 mg/dL 1.8-2.4 CALCIUM [id number] 03:01:00* Test Item Value Reference Range Comments CALCIUM IONIZED (test code=NATASHA) 1.15 mmol/L 1.12-1.32 BASIC METABOLIC [id number] 02:47:00* Test Item Value Reference Range Comments SODIUM (test code=NA) 136 mmol/L 136-145 POTASSIUM (test code=K) 4.1 mmol/L 3.5-5.1 CHLORIDE (test code=CL) 105.0 mmol/L 98-107 CARBON DIOXIDE (test code=CO2) 24.0 mmol/L 21-32 ANION GAP (test code=GAP) 11.1 10-20 GLUCOSE (test code=GLU) 206 mg/dL 74-106 BLOOD UREA NITROGEN (test code=BUN) 48 mg/dL 7-18 GLOMERULAR FILTRATION RATE (test code=GFR) 28 mL/min >=60 Estimated GFR by using Modified MDRD formula.Chronic kidney disease is defined as either kidney damageor GFR <60 mL/min/1.73 m2 for >3 months. CREATININE (test code=CREAT) 2.30 mg/dL 0.7-1.3 BUN/CREATININE RATIO (test code=BUN/CREA) 20.9 10-20 CALCIUM (test code=CA) 7.8 mg/dL 8.5-10.1 HEPATIC FUNCTION [id number] 02:47:00* Test Item Value Reference Range Comments TOTAL PROTEIN (test code=PROT) 4.8 gram/dL 6.4-8.2 ALBUMIN (test code=ALB) 2.2 g/dL 3.4-5.0 GLOBULIN (test code=GLOB) 2.6 gram/dL 2.7-4.2 ALBUMIN/GLOBULIN RATIO (test code=A/G) 0.9 0.75-1.50 BILIRUBIN TOTAL (test code=BILT) 2.10 mg/dL 0.0-1.0 BILIRUBIN DIRECT (test code=BILD) 1.41 mg/dL 0.0-0.20 SGOT/AST (test code=AST) 138 IUnit/L 15-37 SGPT/ALT (test code=ALT) 516 IUnit/L 12-78 ALKALINE PHOSPHATASE TOTAL (test code=ALKP) 404 IUnit/L 45-117 Note change in reference range due to change in reagent. [id number] 02:47:00* Test Item Value Reference Range Comments PHOSPHORUS (test code=PHOS) 2.5 mg/dL 2.5-4.9 [id number] 02:47:00* Test Item Value Reference Range Comments MAGNESIUM (test code=MAG) 1.7 mg/dL 1.8-2.4 CALCIUM [id number] 02:47:00* Test Item Value Reference Range Comments CALCIUM IONIZED (test code=NATASHA) mmol/L 1.12-1.32 BASIC METABOLIC [id number] 02:37:00* Test Item Value Reference Range Comments SODIUM (test code=NA) 136 mmol/L 136-145 POTASSIUM (test code=K) 4.1 mmol/L 3.5-5.1 CHLORIDE (test code=CL) 105.0 mmol/L 98-107 CARBON DIOXIDE (test code=CO2) mmol/L 21-32 ANION GAP (test code=GAP) 10-20 GLUCOSE (test code=GLU) mg/dL 74-106 BLOOD UREA NITROGEN (test code=BUN) mg/dL 7-18 GLOMERULAR FILTRATION RATE (test code=GFR) mL/min >=60 CREATININE (test code=CREAT) mg/dL 0.7-1.3 BUN/CREATININE RATIO (test code=BUN/CREA) 10-20 CALCIUM (test code=CA) mg/dL 8.5-10.1 HEPATIC FUNCTION [id number] 02:37:00* Test Item Value Reference Range Comments TOTAL PROTEIN (test code=PROT) gram/dL 6.4-8.2 ALBUMIN (test code=ALB) g/dL 3.4-5.0 GLOBULIN (test code=GLOB) gram/dL 2.7-4.2 ALBUMIN/GLOBULIN RATIO (test code=A/G) 0.75-1.50 BILIRUBIN TOTAL (test code=BILT) mg/dL 0.0-1.0 BILIRUBIN DIRECT (test code=BILD) mg/dL 0.0-0.20 SGOT/AST (test code=AST) IUnit/L 15-37 SGPT/ALT (test code=ALT) IUnit/L 12-78 ALKALINE PHOSPHATASE TOTAL (test code=ALKP) IUnit/L 45-117 [id number] 02:37:00* Test Item Value Reference Range Comments PHOSPHORUS (test code=PHOS) mg/dL 2.5-4.9 [id number] 02:37:00* Test Item Value Reference Range Comments MAGNESIUM (test code=MAG) mg/dL 1.8-2.4 CALCIUM [id number] 02:37:00* Test Item Value Reference Range Comments CALCIUM IONIZED (test code=NATASHA) mmol/L 1.12-1.32 CBC W/AUTO [id number] 02:27:00* Test Item Value Reference Range Comments WHITE BLOOD CELL (test code=WBC) 5.6 K/mm3 4.5-12.5 RED BLOOD CELL (test code=RBC) 4.33 mill/mm3 4.0-5.8 HEMOGLOBIN (test code=HGB) 10.6 gram/dL 13.0-17.5 HEMATOCRIT (test code=HCT) 34.6 % 42.0-52.0 MEAN CELL VOLUME (test code=MCV) 79.9 fL 80-98 MEAN CELL HGB (test code=MCH) 24.5 picogram 27.0-33.0 MEAN CELL HGB CONCETRATION (test code=MCHC) 30.6 gram/dL 33.0-36.0 RED CELL DISTRIBUTION WIDTH (test code=RDW) 15.1 % 11.6-16.2 RED CELL DISTRIBUTION WIDTH SD (test code=RDW-SD) 44.0 fL 37.0-51.0 PLATELET COUNT (test code=PLT) 86 K/mm3 150-450 MEAN PLATELET VOLUME (test code=MPV) 11.7 fL 6.7-11.0 NEUTROPHIL % (test code=NT%) 66.2 % 39.0-69.0 IMMATURE GRANULOCYTE % (test code=IG%) 1.3 % 0.0-5.0 LYMPHOCYTE % (test code=LY%) 15.3 % 25.0-55.0 MONOCYTE % (test code=MO%) 11.4 % 0.0-10.0 EOSINOPHIL % (test code=EO%) 5.6 % 0.0-5.0 BASOPHIL % (test code=BA%) 0.2 % 0.0-1.0 NUCLEATED RBC % (test code=NRBC%) 0.0 % 0-0 NEUTROPHIL # (test code=NT#) 3.68 K/mm3 1.8-7.7 IMMATURE GRANULOCYTE # (test code=IG#) 0.07 x10 3/uL 0-0.03 LYMPHOCYTE # (test code=LY#) 0.85 K/mm3 1.0-5.0 MONOCYTE # (test code=MO#) 0.63 K/mm3 0-0.8 EOSINOPHIL # (test code=EO#) 0.31 K/mm3 0.0-0.5 BASOPHIL # (test code=BA#) 0.01 K/mm3 0.0-0.2 NUCLEATED RBC # (test code=NRBC#) 0.00 K/mm3 0.0-0.1 [id number] 20:51:00* Test Item Value Reference Range Comments GLUBED (test code=GLUBED) 142 mg/dL 74-106 Performed by certified boom crane operator at [facility] [id number] 18:22:00* Test Item Value Reference Range Comments GLUBED (test code=GLUBED) 153 mg/dL 74-106 Performed by certified boom crane operator at [facility] [id number] 12:40:00* Test Item Value Reference Range Comments GLUBED (test code=GLUBED) 130 mg/dL 74-106 Performed by certified boom crane operator at [facility] ACUTE HEPATITIS [id number] 07:11:00* Test Item Value Reference Range Comments AB HEPATITIS A IGM (test code=HAVMAB) Negative Negative AG HEPAT B SURF (test code=HBSAG) Negative Negative HEPATITIS B CORE ANTIBODY,IGM (test code=HBCMAB) Negative Negative AB HEPATITIS C (test code=HCVAB) <0.1 0.0-0.9 INFCE Result Units: s/co ratio Negative: < 0.8 Indeterminate: 0.8 - 0.9 Positive: > 0.9 The CDC recommends that a positive HCV antibody result be followed up with a HCV Nucleic Acid Amplification test ([id number]).Performed At: [facility] [id number] Michael Russell MD Ph:[phone] [id number] 05:48:00* Test Item Value Reference Range Comments GLUBED (test code=GLUBED) 202 mg/dL 74-106 Performed by certified boom crane operator at [facility] CALCIUM [id number] 04:49:00* Test Item Value Reference Range Comments CALCIUM IONIZED (test code=NATASHA) 1.15 mmol/L 1.12-1.32 CBC W/AUTO [id number] 03:35:00* Test Item Value Reference Range Comments WHITE BLOOD CELL (test code=WBC) 6.5 K/mm3 4.5-12.5 RED BLOOD CELL (test code=RBC) 4.11 mill/mm3 4.0-5.8 HEMOGLOBIN (test code=HGB) 10.2 gram/dL 13.0-17.5 HEMATOCRIT (test code=HCT) 32.9 % 42.0-52.0 MEAN CELL VOLUME (test code=MCV) 80.0 fL 80-98 MEAN CELL HGB (test code=MCH) 24.8 picogram 27.0-33.0 MEAN CELL HGB CONCETRATION (test code=MCHC) 31.0 gram/dL 33.0-36.0 RED CELL DISTRIBUTION WIDTH (test code=RDW) 15.2 % 11.6-16.2 RED CELL DISTRIBUTION WIDTH SD (test code=RDW-SD) 44.2 fL 37.0-51.0 PLATELET COUNT (test code=PLT) 86 K/mm3 150-450 MEAN PLATELET VOLUME (test code=MPV) 11.4 fL 6.7-11.0 NEUTROPHIL % (test code=NT%) 67.6 % 39.0-69.0 IMMATURE GRANULOCYTE % (test code=IG%) 1.5 % 0.0-5.0 LYMPHOCYTE % (test code=LY%) 15.4 % 25.0-55.0 MONOCYTE % (test code=MO%) 10.3 % 0.0-10.0 EOSINOPHIL % (test code=EO%) 5.2 % 0.0-5.0 BASOPHIL % (test code=BA%) 0.0 % 0.0-1.0 NUCLEATED RBC % (test code=NRBC%) 0.3 % 0-0 NEUTROPHIL # (test code=NT#) 4.39 K/mm3 1.8-7.7 IMMATURE GRANULOCYTE # (test code=IG#) 0.10 x10 3/uL 0-0.03 LYMPHOCYTE # (test code=LY#) 1.00 K/mm3 1.0-5.0 MONOCYTE # (test code=MO#) 0.67 K/mm3 0-0.8 EOSINOPHIL # (test code=EO#) 0.34 K/mm3 0.0-0.5 BASOPHIL # (test code=BA#) 0.00 K/mm3 0.0-0.2 NUCLEATED RBC # (test code=NRBC#) 0.02 K/mm3 0.0-0.1 MANUAL DIFF REQUIRED (test code=MDIFF) NO, ONLY SCAN NEEDED DIFFERENTIAL [id number] 03:35:00* Test Item Value Reference Range Comments STAIN ACCEPTABILITY (test code=STN ACCEPTABLE) STAIN ACCEPTABLE POLYCHROMASIA (test code=POLC) 1+ PLATELET ESTIMATE (test code=PLTEST) DECREASED PLATELET MORPHOLOGY (test code=PLTMORPH) NORMAL COMPREHENSIVE METABOLIC [id number] 03:31:00* Test Item Value Reference Range Comments SODIUM (test code=NA) 135 mmol/L 136-145 POTASSIUM (test code=K) 4.0 mmol/L 3.5-5.1 CHLORIDE (test code=CL) 99.0 mmol/L 98-107 CARBON DIOXIDE (test code=CO2) 27.0 mmol/L 21-32 ANION GAP (test code=GAP) 13.0 10-20 GLUCOSE (test code=GLU) 159 mg/dL 74-106 BLOOD UREA NITROGEN (test code=BUN) 51 mg/dL 7-18 GLOMERULAR FILTRATION RATE (test code=GFR) 22 mL/min >=60 Estimated GFR by using Modified MDRD formula.Chronic kidney disease is defined as either kidney damageor GFR <60 mL/min/1.73 m2 for >3 months. CREATININE (test code=CREAT) 2.90 mg/dL 0.7-1.3 BUN/CREATININE RATIO (test code=BUN/CREA) 17.6 10-20 TOTAL PROTEIN (test code=PROT) 4.7 gram/dL 6.4-8.2 ALBUMIN (test code=ALB) 2.3 g/dL 3.4-5.0 GLOBULIN (test code=GLOB) 2.4 gram/dL 2.7-4.2 ALBUMIN/GLOBULIN RATIO (test code=A/G) 1.0 0.75-1.50 CALCIUM (test code=CA) 7.9 mg/dL 8.5-10.1 BILIRUBIN TOTAL (test code=BILT) 2.50 mg/dL 0.0-1.0 SGOT/AST (test code=AST) 173 IUnit/L 15-37 SGPT/ALT (test code=ALT) 657 IUnit/L 12-78 ALKALINE PHOSPHATASE TOTAL (test code=ALKP) 286 IUnit/L 45-117 Note change in reference range due to change in reagent. [id number] 03:31:00* Test Item Value Reference Range Comments PHOSPHORUS (test code=PHOS) 2.9 mg/dL 2.5-4.9 BILIRUBIN [id number] 03:31:00* Test Item Value Reference Range Comments BILIRUBIN DIRECT (test code=BILD) 1.86 mg/dL 0.0-0.20 [id number] 03:31:00* Test Item Value Reference Range Comments MAGNESIUM (test code=MAG) 1.8 mg/dL 1.8-2.4 CBC W/AUTO [id number] 03:12:00* Test Item Value Reference Range Comments WHITE BLOOD CELL (test code=WBC) 6.5 K/mm3 4.5-12.5 RED BLOOD CELL (test code=RBC) 4.11 mill/mm3 4.0-5.8 HEMOGLOBIN (test code=HGB) 10.2 gram/dL 13.0-17.5 HEMATOCRIT (test code=HCT) 32.9 % 42.0-52.0 MEAN CELL VOLUME (test code=MCV) 80.0 fL 80-98 MEAN CELL HGB (test code=MCH) 24.8 picogram 27.0-33.0 MEAN CELL HGB CONCETRATION (test code=MCHC) 31.0 gram/dL 33.0-36.0 RED CELL DISTRIBUTION WIDTH (test code=RDW) 15.2 % 11.6-16.2 RED CELL DISTRIBUTION WIDTH SD (test code=RDW-SD) 44.2 fL 37.0-51.0 PLATELET COUNT (test code=PLT) 86 K/mm3 150-450 MEAN PLATELET VOLUME (test code=MPV) 11.4 fL 6.7-11.0 NEUTROPHIL % (test code=NT%) 67.6 % 39.0-69.0 IMMATURE GRANULOCYTE % (test code=IG%) 1.5 % 0.0-5.0 LYMPHOCYTE % (test code=LY%) 15.4 % 25.0-55.0 MONOCYTE % (test code=MO%) 10.3 % 0.0-10.0 EOSINOPHIL % (test code=EO%) 5.2 % 0.0-5.0 BASOPHIL % (test code=BA%) 0.0 % 0.0-1.0 NUCLEATED RBC % (test code=NRBC%) 0.3 % 0-0 NEUTROPHIL # (test code=NT#) 4.39 K/mm3 1.8-7.7 IMMATURE GRANULOCYTE # (test code=IG#) 0.10 x10 3/uL 0-0.03 LYMPHOCYTE # (test code=LY#) 1.00 K/mm3 1.0-5.0 MONOCYTE # (test code=MO#) 0.67 K/mm3 0-0.8 EOSINOPHIL # (test code=EO#) 0.34 K/mm3 0.0-0.5 BASOPHIL # (test code=BA#) 0.00 K/mm3 0.0-0.2 NUCLEATED RBC # (test code=NRBC#) 0.02 K/mm3 0.0-0.1 MANUAL DIFF REQUIRED (test code=MDIFF) NO, ONLY SCAN NEEDED DIFFERENTIAL [id number] 03:12:00* Test Item Value Reference Range Comments STAIN ACCEPTABILITY (test code=STN ACCEPTABLE) CABOT RINGS (test code=CAB) MORPHOLOGY COMMENT (test code=MOC) PLATELET ESTIMATE (test code=PLTEST) PLATELET MORPHOLOGY (test code=PLTMORPH) CBC W/AUTO [id number] 03:12:00* Test Item Value Reference Range Comments WHITE BLOOD CELL (test code=WBC) 6.5 K/mm3 4.5-12.5 RED BLOOD CELL (test code=RBC) 4.11 mill/mm3 4.0-5.8 HEMOGLOBIN (test code=HGB) 10.2 gram/dL 13.0-17.5 HEMATOCRIT (test code=HCT) 32.9 % 42.0-52.0 MEAN CELL VOLUME (test code=MCV) 80.0 fL 80-98 MEAN CELL HGB (test code=MCH) 24.8 picogram 27.0-33.0 MEAN CELL HGB CONCETRATION (test code=MCHC) 31.0 gram/dL 33.0-36.0 RED CELL DISTRIBUTION WIDTH (test code=RDW) 15.2 % 11.6-16.2 RED CELL DISTRIBUTION WIDTH SD (test code=RDW-SD) 44.2 fL 37.0-51.0 PLATELET COUNT (test code=PLT) 86 K/mm3 150-450 MEAN PLATELET VOLUME (test code=MPV) 11.4 fL 6.7-11.0 NEUTROPHIL % (test code=NT%) 67.6 % 39.0-69.0 IMMATURE GRANULOCYTE % (test code=IG%) 1.5 % 0.0-5.0 LYMPHOCYTE % (test code=LY%) 15.4 % 25.0-55.0 MONOCYTE % (test code=MO%) 10.3 % 0.0-10.0 EOSINOPHIL % (test code=EO%) 5.2 % 0.0-5.0 BASOPHIL % (test code=BA%) 0.0 % 0.0-1.0 NUCLEATED RBC % (test code=NRBC%) 0.3 % 0-0 NEUTROPHIL # (test code=NT#) 4.39 K/mm3 1.8-7.7 IMMATURE GRANULOCYTE # (test code=IG#) 0.10 x10 3/uL 0-0.03 LYMPHOCYTE # (test code=LY#) 1.00 K/mm3 1.0-5.0 MONOCYTE # (test code=MO#) 0.67 K/mm3 0-0.8 EOSINOPHIL # (test code=EO#) 0.34 K/mm3 0.0-0.5 BASOPHIL # (test code=BA#) 0.00 K/mm3 0.0-0.2 NUCLEATED RBC # (test code=NRBC#) 0.02 K/mm3 0.0-0.1 MANUAL DIFF REQUIRED (test code=MDIFF) NO, ONLY SCAN NEEDED DIFFERENTIAL [id number] 03:12:00* Test Item Value Reference Range Comments STAIN ACCEPTABILITY (test code=STN ACCEPTABLE) CABOT RINGS (test code=CAB) MORPHOLOGY COMMENT (test code=MOC) PLATELET ESTIMATE (test code=PLTEST) PLATELET MORPHOLOGY (test code=PLTMORPH) CBC W/AUTO [id number] 03:12:00* Test Item Value Reference Range Comments WHITE BLOOD CELL (test code=WBC) 6.5 K/mm3 4.5-12.5 RED BLOOD CELL (test code=RBC) 4.11 mill/mm3 4.0-5.8 HEMOGLOBIN (test code=HGB) 10.2 gram/dL 13.0-17.5 HEMATOCRIT (test code=HCT) 32.9 % 42.0-52.0 MEAN CELL VOLUME (test code=MCV) 80.0 fL 80-98 MEAN CELL HGB (test code=MCH) 24.8 picogram 27.0-33.0 MEAN CELL HGB CONCETRATION (test code=MCHC) 31.0 gram/dL 33.0-36.0 RED CELL DISTRIBUTION WIDTH (test code=RDW) 15.2 % 11.6-16.2 RED CELL DISTRIBUTION WIDTH SD (test code=RDW-SD) 44.2 fL 37.0-51.0 PLATELET COUNT (test code=PLT) 86 K/mm3 150-450 MEAN PLATELET VOLUME (test code=MPV) 11.4 fL 6.7-11.0 NEUTROPHIL % (test code=NT%) 67.6 % 39.0-69.0 IMMATURE GRANULOCYTE % (test code=IG%) 1.5 % 0.0-5.0 LYMPHOCYTE % (test code=LY%) 15.4 % 25.0-55.0 MONOCYTE % (test code=MO%) 10.3 % 0.0-10.0 EOSINOPHIL % (test code=EO%) 5.2 % 0.0-5.0 BASOPHIL % (test code=BA%) 0.0 % 0.0-1.0 NUCLEATED RBC % (test code=NRBC%) 0.3 % 0-0 NEUTROPHIL # (test code=NT#) 4.39 K/mm3 1.8-7.7 IMMATURE GRANULOCYTE # (test code=IG#) 0.10 x10 3/uL 0-0.03 LYMPHOCYTE # (test code=LY#) 1.00 K/mm3 1.0-5.0 MONOCYTE # (test code=MO#) 0.67 K/mm3 0-0.8 EOSINOPHIL # (test code=EO#) 0.34 K/mm3 0.0-0.5 BASOPHIL # (test code=BA#) 0.00 K/mm3 0.0-0.2 NUCLEATED RBC # (test code=NRBC#) 0.02 K/mm3 0.0-0.1 MANUAL DIFF REQUIRED (test code=MDIFF) NO, ONLY SCAN NEEDED DIFFERENTIAL [id number] 03:12:00* Test Item Value Reference Range Comments STAIN ACCEPTABILITY (test code=STN ACCEPTABLE) MORPHOLOGY COMMENT (test code=MOC) PLATELET ESTIMATE (test code=PLTEST) PLATELET MORPHOLOGY (test code=PLTMORPH) CBC W/AUTO [id number] 03:12:00* Test Item Value Reference Range Comments WHITE BLOOD CELL (test code=WBC) 6.5 K/mm3 4.5-12.5 RED BLOOD CELL (test code=RBC) 4.11 mill/mm3 4.0-5.8 HEMOGLOBIN (test code=HGB) 10.2 gram/dL 13.0-17.5 HEMATOCRIT (test code=HCT) 32.9 % 42.0-52.0 MEAN CELL VOLUME (test code=MCV) 80.0 fL 80-98 MEAN CELL HGB (test code=MCH) 24.8 picogram 27.0-33.0 MEAN CELL HGB CONCETRATION (test code=MCHC) 31.0 gram/dL 33.0-36.0 RED CELL DISTRIBUTION WIDTH (test code=RDW) 15.2 % 11.6-16.2 RED CELL DISTRIBUTION WIDTH SD (test code=RDW-SD) 44.2 fL 37.0-51.0 PLATELET COUNT (test code=PLT) 86 K/mm3 150-450 MEAN PLATELET VOLUME (test code=MPV) 11.4 fL 6.7-11.0 NEUTROPHIL % (test code=NT%) 67.6 % 39.0-69.0 IMMATURE GRANULOCYTE % (test code=IG%) 1.5 % 0.0-5.0 LYMPHOCYTE % (test code=LY%) 15.4 % 25.0-55.0 MONOCYTE % (test code=MO%) 10.3 % 0.0-10.0 EOSINOPHIL % (test code=EO%) 5.2 % 0.0-5.0 BASOPHIL % (test code=BA%) 0.0 % 0.0-1.0 NUCLEATED RBC % (test code=NRBC%) 0.3 % 0-0 NEUTROPHIL # (test code=NT#) 4.39 K/mm3 1.8-7.7 IMMATURE GRANULOCYTE # (test code=IG#) 0.10 x10 3/uL 0-0.03 LYMPHOCYTE # (test code=LY#) 1.00 K/mm3 1.0-5.0 MONOCYTE # (test code=MO#) 0.67 K/mm3 0-0.8 EOSINOPHIL # (test code=EO#) 0.34 K/mm3 0.0-0.5 BASOPHIL # (test code=BA#) 0.00 K/mm3 0.0-0.2 NUCLEATED RBC # (test code=NRBC#) 0.02 K/mm3 0.0-0.1 MANUAL DIFF REQUIRED (test code=MDIFF) NO, ONLY SCAN NEEDED DIFFERENTIAL [id number] 03:12:00* Test Item Value Reference Range Comments STAIN ACCEPTABILITY (test code=STN ACCEPTABLE) CABOT RINGS (test code=CAB) MORPHOLOGY COMMENT (test code=MOC) PLATELET ESTIMATE (test code=PLTEST) PLATELET MORPHOLOGY (test code=PLTMORPH) [id number] 20:28:00* Test Item Value Reference Range Comments GLUBED (test code=GLUBED) 178 mg/dL 74-106 Performed by certified boom crane operator at [facility] RETICULOCYTE [id number] 16:10:00* Test Item Value Reference Range Comments RETICULOCYTE COUNT (test code=RETICT) 2.37 % 0.5-2.0 RETIC COUNT ABSOLUTE (test code=RET#) 0.099 mill/mm3 0.016-0.095 IMMATURE RETICULOCYTE FRACTION (test code=IRF) 25.2 % 2.3-13.4 Values above normal range indicate an increase in RBCcellular response from bone marrow. RETICULOCYTE HGB EQUIVALENT (test code=RETHE) 20.0 pg 28.2-35.7 RET-He is a direct estimate of recent functionalavailability of iron in the cell, therefore, decreasedRET-He is indicative of iron deficiency. SMEAR PERIPHERAL [id number] 16:10:00* Test Item Value Reference Range Comments SMEAR PERIPHERAL BLOOD (test code=BLDSM) PATH REV PATH REVIEW MORMAL WBC WITH LEFT SHIFT, THROMBOCYTOPENIA, MILDNORMOCYTIC ANEMIA. LAURENT KAYE M.D.07/09/19 [id number] 15:33:00* Test Item Value Reference Range Comments GLUBED (test code=GLUBED) 165 mg/dL 74-106 Performed by certified boom crane operator at [facility] - [facility] [id number] 12:31:00 Name: TRACY DIAZ [facility] : 1950 Age/S: 69 / M [address] [facility]: [id number] Loc: Z[place] [address] Phys: Myesha Henderson MD Acct: [id number] Dis Date: Status: ADM IN PHONE #: [phone] Exam Date: 07/06/2019 1647 FAX #: [phone] Reason: EXAMS: CPT CODE: [id number] [facility] ACCESS 12590 Fluoro Time: DAP (Gy m2): Air Kerma (mGy): EXAM: Insertion of a non-tunneled temporary hemodialysis catheter with sonographic guidance; CPT: 14710, 35651; INFORMATION: Renal failure TECHNIQUE AND FINDINGS: After obtaining informed consent, sonography was performed, demonstrating a patent and compressible right internal jugular vein. Sonographic images were stored in PACS. The patient's skin in the right neck region was prepped and draped in the usual sterile fashion, applying all elements of maximal sterile barrier technique. Xylocaine was administered and using real-time sonographic guidance the right IJ was accessed with a micro puncture system, followed by insertion of an 035 guidewire. Sequential dil atation was performed and a 13 [place] triple lumen hemodialysis catheter w as then inserted over the guidewire. Good blood return was noticed; the catheter was sutured to the skin and flushed with heparinized saline. There were no apparent complications. IMPRESSION: Successful insertion of a non-tunneled triple-lumen temporary hemodialys is catheter via right IJ access, using sonographic guidance. L ocation code: [facility] at 1231 Reported and signed by: Mason Pradhan M.D. CC: Abigail Mchugh MD; Myesha Henderson MD Technologist: AMIE ZAFAR [facility] Trnscb Date/Time: 07/09/2019 (1231) Javier .GRW Orig Print D/T: S: 07/09/2019 (6561) PAGE 1 Signed Report [id number] 11:29:00* Test Item Value Reference Range Comments GLUBED (test code=GLUBED) 146 mg/dL 74-106 Performed by certified boom crane operator at [facility] - US ABDOMEN [id number] 08:59:00 Name: TRACY DIAZ [facility] : 1950 Age/S: 69 / M [address] Unit #: [id number] Loc: ZELDA [place] [address] Phys: Kathy Redmond Acct: [id number] Dis Date: Status: ADM IN PHONE #: [phone] Exam Date: 07/09/2019829 FAX #: [phone] Reason: thrombocytopenia, eval liver/spleen EXAMS: CPT CODE: [id number] US ABDOMEN COMPLETE 38125 REASON FOR EXAM: thrombocytopenia, eval liver/spleen EXAM ORDER DATE: 07/09/2019 7:19 AM Ordering: PRIETO Humphries Attending:Myesha Henderson MD Location:[facility] PROCEDURE: - US ABDOMEN COMPLETE FINDINGS: The liver is enlarged and heterogeneous. There is no evidence of focal mass identified. The pancreas is within normal limits. The right kidney measures 10.1 x 4.5 cm. The left kidney measures 11.6 x 5.5 cm. There is no evidence of hydronephrosis. There is no evidence of nephrolithiasis. The spleen measures 10.6 cm. The gallbladder is unremarkable without evidence of gall stone. No evidence of gallbladder wall thickening or pericholecystic fluid. The common bile duct measures 0.3 cm. There is no evidence of ascites. The aorta and IVC are within normal limits. The portal vein is patent with hepatopetal flow IMPRESSION: 3.8 x 2.9 cm right renal cyst. 2.4 x 2.3 cm left renal cyst. Enlarged and fatty liver at 0859 Reported and signed by: Calvin Harris M.D. CC: Kathy Redmond; Abigail Gonzalez MD; Myesha Henderson MD Technologist: HIMA BARRAGAN RT(R),RDMS Trnscb Date/Time: 07/09/2019 (858) t.[email or web address].VTL Orig Print D/T: S: 07/09/2019 (0902) Probe: PAGE 1 Signed Report [id number] 07:17:00* Test Item Value Reference Range Comments GLUBED (test code=GLUBED) 240 mg/dL 74-106 Performed by certified boom crane operator at [facility] CBC W/AUTO [id number] 05:48:00* Test Item Value Reference Range Comments WHITE BLOOD CELL (test code=WBC) 5.5 K/mm3 4.5-12.5 RED BLOOD CELL (test code=RBC) 4.25 mill/mm3 4.0-5.8 HEMOGLOBIN (test code=HGB) 10.6 gram/dL 13.0-17.5 HEMATOCRIT (test code=HCT) 34.3 % 42.0-52.0 MEAN CELL VOLUME (test code=MCV) 80.7 fL 80-98 MEAN CELL HGB (test code=MCH) 24.9 picogram 27.0-33.0 MEAN CELL HGB CONCETRATION (test code=MCHC) 30.9 gram/dL 33.0-36.0 RED CELL DISTRIBUTION WIDTH (test code=RDW) 15.3 % 11.6-16.2 RED CELL DISTRIBUTION WIDTH SD (test code=RDW-SD) 44.7 fL 37.0-51.0 PLATELET COUNT (test code=PLT) 87 K/mm3 150-450 MEAN PLATELET VOLUME (test code=MPV) 12.0 fL 6.7-11.0 NEUTROPHIL % (test code=NT%) 71.7 % 39.0-69.0 IMMATURE GRANULOCYTE % (test code=IG%) 1.5 % 0.0-5.0 LYMPHOCYTE % (test code=LY%) 15.5 % 25.0-55.0 MONOCYTE % (test code=MO%) 9.5 % 0.0-10.0 EOSINOPHIL % (test code=EO%) 1.6 % 0.0-5.0 BASOPHIL % (test code=BA%) 0.2 % 0.0-1.0 NUCLEATED RBC % (test code=NRBC%) 0.0 % 0-0 NEUTROPHIL # (test code=NT#) 3.93 K/mm3 1.8-7.7 IMMATURE GRANULOCYTE # (test code=IG#) 0.08 x10 3/uL 0-0.03 LYMPHOCYTE # (test code=LY#) 0.85 K/mm3 1.0-5.0 MONOCYTE # (test code=MO#) 0.52 K/mm3 0-0.8 EOSINOPHIL # (test code=EO#) 0.09 K/mm3 0.0-0.5 BASOPHIL # (test code=BA#) 0.01 K/mm3 0.0-0.2 NUCLEATED RBC # (test code=NRBC#) 0.00 K/mm3 0.0-0.1 MANUAL DIFF REQUIRED (test code=MDIFF) NO, ONLY SCAN NEEDED DIFFERENTIAL [id number] 05:48:00* Test Item Value Reference Range Comments STAIN ACCEPTABILITY (test code=STN ACCEPTABLE) STAIN ACCEPTABLE POLYCHROMASIA (test code=POLC) 1+ POIKILOCYTOSIS (test code=POIK) 2+ ANISOCYTOSIS (test code=ANISO) 1+ MICROCYTOSIS (test code=MICR) 1+ MICHELLE CELLS (test code=MICHELLE) 2+ NONE PLATELET ESTIMATE (test code=PLTEST) DECREASED PLATELET MORPHOLOGY (test code=PLTMORPH) NORMAL BASIC METABOLIC [id number] 05:20:00* Test Item Value Reference Range Comments SODIUM (test code=NA) 133 mmol/L 136-145 POTASSIUM (test code=K) 4.0 mmol/L 3.5-5.1 CHLORIDE (test code=CL) 98.0 mmol/L 98-107 CARBON DIOXIDE (test code=CO2) 24.0 mmol/L 21-32 ANION GAP (test code=GAP) 15.0 10-20 GLUCOSE (test code=GLU) 220 mg/dL 74-106 BLOOD UREA NITROGEN (test code=BUN) 51 mg/dL 7-18 GLOMERULAR FILTRATION RATE (test code=GFR) 17 mL/min >=60 Estimated GFR by using Modified MDRD formula.Chronic kidney disease is defined as either kidney damageor GFR <60 mL/min/1.73 m2 for >3 months. CREATININE (test code=CREAT) 3.60 mg/dL 0.7-1.3 BUN/CREATININE RATIO (test code=BUN/CREA) 14.2 10-20 CALCIUM (test code=CA) 7.6 mg/dL 8.5-10.1 HEPATIC FUNCTION [id number] 05:20:00* Test Item Value Reference Range Comments TOTAL PROTEIN (test code=PROT) 5.0 gram/dL 6.4-8.2 ALBUMIN (test code=ALB) 2.7 g/dL 3.4-5.0 GLOBULIN (test code=GLOB) 2.3 gram/dL 2.7-4.2 ALBUMIN/GLOBULIN RATIO (test code=A/G) 1.2 0.75-1.50 BILIRUBIN TOTAL (test code=BILT) 3.30 mg/dL 0.0-1.0 BILIRUBIN DIRECT (test code=BILD) 2.29 mg/dL 0.0-0.20 SGOT/AST (test code=AST) 282 IUnit/L 15-37 SGPT/ALT (test code=ALT) 970 IUnit/L 12-78 ALKALINE PHOSPHATASE TOTAL (test code=ALKP) 213 IUnit/L 45-117 Note change in reference range due to change in reagent. [id number] 05:20:00* Test Item Value Reference Range Comments PHOSPHORUS (test code=PHOS) 3.2 mg/dL 2.5-4.9 [id number] 05:20:00* Test Item Value Reference Range Comments MAGNESIUM (test code=MAG) 2.1 mg/dL 1.8-2.4 CALCIUM [id number] 05:20:00* Test Item Value Reference Range Comments CALCIUM IONIZED (test code=NATASHA) 1.07 mmol/L 1.12-1.32 BASIC METABOLIC [id number] 05:07:00* Test Item Value Reference Range Comments SODIUM (test code=NA) 133 mmol/L 136-145 POTASSIUM (test code=K) 4.0 mmol/L 3.5-5.1 CHLORIDE (test code=CL) 98.0 mmol/L 98-107 CARBON DIOXIDE (test code=CO2) mmol/L 21-32 ANION GAP (test code=GAP) 10-20 GLUCOSE (test code=GLU) mg/dL 74-106 BLOOD UREA NITROGEN (test code=BUN) mg/dL 7-18 GLOMERULAR FILTRATION RATE (test code=GFR) mL/min >=60 CREATININE (test code=CREAT) mg/dL 0.7-1.3 BUN/CREATININE RATIO (test code=BUN/CREA) 10-20 CALCIUM (test code=CA) mg/dL 8.5-10.1 HEPATIC FUNCTION [id number] 05:07:00* Test Item Value Reference Range Comments TOTAL PROTEIN (test code=PROT) gram/dL 6.4-8.2 ALBUMIN (test code=ALB) g/dL 3.4-5.0 GLOBULIN (test code=GLOB) gram/dL 2.7-4.2 ALBUMIN/GLOBULIN RATIO (test code=A/G) 0.75-1.50 BILIRUBIN TOTAL (test code=BILT) mg/dL 0.0-1.0 BILIRUBIN DIRECT (test code=BILD) mg/dL 0.0-0.20 SGOT/AST (test code=AST) IUnit/L 15-37 SGPT/ALT (test code=ALT) IUnit/L 12-78 ALKALINE PHOSPHATASE TOTAL (test code=ALKP) IUnit/L 45-117 [id number] 05:07:00* Test Item Value Reference Range Comments PHOSPHORUS (test code=PHOS) mg/dL 2.5-4.9 [id number] 05:07:00* Test Item Value Reference Range Comments MAGNESIUM (test code=MAG) mg/dL 1.8-2.4 CALCIUM [id number] 05:07:00* Test Item Value Reference Range Comments CALCIUM IONIZED (test code=NATASHA) 1.07 mmol/L 1.12-1.32 BASIC METABOLIC [id number] 05:03:00* Test Item Value Reference Range Comments SODIUM (test code=NA) mmol/L 136-145 POTASSIUM (test code=K) mmol/L 3.5-5.1 CHLORIDE (test code=CL) mmol/L 98-107 CARBON DIOXIDE (test code=CO2) mmol/L 21-32 ANION GAP (test code=GAP) 10-20 GLUCOSE (test code=GLU) mg/dL 74-106 BLOOD UREA NITROGEN (test code=BUN) mg/dL 7-18 GLOMERULAR FILTRATION RATE (test code=GFR) mL/min >=60 CREATININE (test code=CREAT) mg/dL 0.7-1.3 BUN/CREATININE RATIO (test code=BUN/CREA) 10-20 CALCIUM (test code=CA) mg/dL 8.5-10.1 HEPATIC FUNCTION [id number] 05:03:00* Test Item Value Reference Range Comments TOTAL PROTEIN (test code=PROT) gram/dL 6.4-8.2 ALBUMIN (test code=ALB) g/dL 3.4-5.0 GLOBULIN (test code=GLOB) gram/dL 2.7-4.2 ALBUMIN/GLOBULIN RATIO (test code=A/G) 0.75-1.50 BILIRUBIN TOTAL (test code=BILT) mg/dL 0.0-1.0 BILIRUBIN DIRECT (test code=BILD) mg/dL 0.0-0.20 SGOT/AST (test code=AST) IUnit/L 15-37 SGPT/ALT (test code=ALT) IUnit/L 12-78 ALKALINE PHOSPHATASE TOTAL (test code=ALKP) IUnit/L 45-117 [id number] 05:03:00* Test Item Value Reference Range Comments PHOSPHORUS (test code=PHOS) mg/dL 2.5-4.9 [id number] 05:03:00* Test Item Value Reference Range Comments MAGNESIUM (test code=MAG) mg/dL 1.8-2.4 CALCIUM [id number] 05:03:00* Test Item Value Reference Range Comments CALCIUM IONIZED (test code=NATASHA) 1.07 mmol/L 1.12-1.32 CBC W/AUTO [id number] 04:54:00* Test Item Value Reference Range Comments WHITE BLOOD CELL (test code=WBC) 5.5 K/mm3 4.5-12.5 RED BLOOD CELL (test code=RBC) 4.25 mill/mm3 4.0-5.8 HEMOGLOBIN (test code=HGB) 10.6 gram/dL 13.0-17.5 HEMATOCRIT (test code=HCT) 34.3 % 42.0-52.0 MEAN CELL VOLUME (test code=MCV) 80.7 fL 80-98 MEAN CELL HGB (test code=MCH) 24.9 picogram 27.0-33.0 MEAN CELL HGB CONCETRATION (test code=MCHC) 30.9 gram/dL 33.0-36.0 RED CELL DISTRIBUTION WIDTH (test code=RDW) 15.3 % 11.6-16.2 RED CELL DISTRIBUTION WIDTH SD (test code=RDW-SD) 44.7 fL 37.0-51.0 PLATELET COUNT (test code=PLT) 87 K/mm3 150-450 MEAN PLATELET VOLUME (test code=MPV) 12.0 fL 6.7-11.0 NEUTROPHIL % (test code=NT%) 71.7 % 39.0-69.0 IMMATURE GRANULOCYTE % (test code=IG%) 1.5 % 0.0-5.0 LYMPHOCYTE % (test code=LY%) 15.5 % 25.0-55.0 MONOCYTE % (test code=MO%) 9.5 % 0.0-10.0 EOSINOPHIL % (test code=EO%) 1.6 % 0.0-5.0 BASOPHIL % (test code=BA%) 0.2 % 0.0-1.0 NUCLEATED RBC % (test code=NRBC%) 0.0 % 0-0 NEUTROPHIL # (test code=NT#) 3.93 K/mm3 1.8-7.7 IMMATURE GRANULOCYTE # (test code=IG#) 0.08 x10 3/uL 0-0.03 LYMPHOCYTE # (test code=LY#) 0.85 K/mm3 1.0-5.0 MONOCYTE # (test code=MO#) 0.52 K/mm3 0-0.8 EOSINOPHIL # (test code=EO#) 0.09 K/mm3 0.0-0.5 BASOPHIL # (test code=BA#) 0.01 K/mm3 0.0-0.2 NUCLEATED RBC # (test code=NRBC#) 0.00 K/mm3 0.0-0.1 MANUAL DIFF REQUIRED (test code=MDIFF) NO, ONLY SCAN NEEDED DIFFERENTIAL [id number] 04:54:00* Test Item Value Reference Range Comments STAIN ACCEPTABILITY (test code=STN ACCEPTABLE) CABOT RINGS (test code=CAB) MORPHOLOGY COMMENT (test code=MOC) PLATELET ESTIMATE (test code=PLTEST) PLATELET MORPHOLOGY (test code=PLTMORPH) CBC W/AUTO [id number] 04:54:00* Test Item Value Reference Range Comments WHITE BLOOD CELL (test code=WBC) 5.5 K/mm3 4.5-12.5 RED BLOOD CELL (test code=RBC) 4.25 mill/mm3 4.0-5.8 HEMOGLOBIN (test code=HGB) 10.6 gram/dL 13.0-17.5 HEMATOCRIT (test code=HCT) 34.3 % 42.0-52.0 MEAN CELL VOLUME (test code=MCV) 80.7 fL 80-98 MEAN CELL HGB (test code=MCH) 24.9 picogram 27.0-33.0 MEAN CELL HGB CONCETRATION (test code=MCHC) 30.9 gram/dL 33.0-36.0 RED CELL DISTRIBUTION WIDTH (test code=RDW) 15.3 % 11.6-16.2 RED CELL DISTRIBUTION WIDTH SD (test code=RDW-SD) 44.7 fL 37.0-51.0 PLATELET COUNT (test code=PLT) 87 K/mm3 150-450 MEAN PLATELET VOLUME (test code=MPV) 12.0 fL 6.7-11.0 NEUTROPHIL % (test code=NT%) 71.7 % 39.0-69.0 IMMATURE GRANULOCYTE % (test code=IG%) 1.5 % 0.0-5.0 LYMPHOCYTE % (test code=LY%) 15.5 % 25.0-55.0 MONOCYTE % (test code=MO%) 9.5 % 0.0-10.0 EOSINOPHIL % (test code=EO%) 1.6 % 0.0-5.0 BASOPHIL % (test code=BA%) 0.2 % 0.0-1.0 NUCLEATED RBC % (test code=NRBC%) 0.0 % 0-0 NEUTROPHIL # (test code=NT#) 3.93 K/mm3 1.8-7.7 IMMATURE GRANULOCYTE # (test code=IG#) 0.08 x10 3/uL 0-0.03 LYMPHOCYTE # (test code=LY#) 0.85 K/mm3 1.0-5.0 MONOCYTE # (test code=MO#) 0.52 K/mm3 0-0.8 EOSINOPHIL # (test code=EO#) 0.09 K/mm3 0.0-0.5 BASOPHIL # (test code=BA#) 0.01 K/mm3 0.0-0.2 NUCLEATED RBC # (test code=NRBC#) 0.00 K/mm3 0.0-0.1 MANUAL DIFF REQUIRED (test code=MDIFF) NO, ONLY SCAN NEEDED DIFFERENTIAL [id number] 04:54:00* Test Item Value Reference Range Comments STAIN ACCEPTABILITY (test code=STN ACCEPTABLE) MORPHOLOGY COMMENT (test code=MOC) PLATELET ESTIMATE (test code=PLTEST) PLATELET MORPHOLOGY (test code=PLTMORPH) CBC W/AUTO [id number] 04:53:00* Test Item Value Reference Range Comments WHITE BLOOD CELL (test code=WBC) 5.5 K/mm3 4.5-12.5 RED BLOOD CELL (test code=RBC) 4.25 mill/mm3 4.0-5.8 HEMOGLOBIN (test code=HGB) 10.6 gram/dL 13.0-17.5 HEMATOCRIT (test code=HCT) 34.3 % 42.0-52.0 MEAN CELL VOLUME (test code=MCV) 80.7 fL 80-98 MEAN CELL HGB (test code=MCH) 24.9 picogram 27.0-33.0 MEAN CELL HGB CONCETRATION (test code=MCHC) 30.9 gram/dL 33.0-36.0 RED CELL DISTRIBUTION WIDTH (test code=RDW) 15.3 % 11.6-16.2 RED CELL DISTRIBUTION WIDTH SD (test code=RDW-SD) 44.7 fL 37.0-51.0 PLATELET COUNT (test code=PLT) 87 K/mm3 150-450 MEAN PLATELET VOLUME (test code=MPV) 12.0 fL 6.7-11.0 NEUTROPHIL % (test code=NT%) 71.7 % 39.0-69.0 IMMATURE GRANULOCYTE % (test code=IG%) 1.5 % 0.0-5.0 LYMPHOCYTE % (test code=LY%) 15.5 % 25.0-55.0 MONOCYTE % (test code=MO%) 9.5 % 0.0-10.0 EOSINOPHIL % (test code=EO%) 1.6 % 0.0-5.0 BASOPHIL % (test code=BA%) 0.2 % 0.0-1.0 NUCLEATED RBC % (test code=NRBC%) 0.0 % 0-0 NEUTROPHIL # (test code=NT#) 3.93 K/mm3 1.8-7.7 IMMATURE GRANULOCYTE # (test code=IG#) 0.08 x10 3/uL 0-0.03 LYMPHOCYTE # (test code=LY#) 0.85 K/mm3 1.0-5.0 MONOCYTE # (test code=MO#) 0.52 K/mm3 0-0.8 EOSINOPHIL # (test code=EO#) 0.09 K/mm3 0.0-0.5 BASOPHIL # (test code=BA#) 0.01 K/mm3 0.0-0.2 NUCLEATED RBC # (test code=NRBC#) 0.00 K/mm3 0.0-0.1 MANUAL DIFF REQUIRED (test code=MDIFF) NO, ONLY SCAN NEEDED DIFFERENTIAL [id number] 04:53:00* Test Item Value Reference Range Comments STAIN ACCEPTABILITY (test code=STN ACCEPTABLE) CABOT RINGS (test code=CAB) MORPHOLOGY COMMENT (test code=MOC) PLATELET ESTIMATE (test code=PLTEST) PLATELET MORPHOLOGY (test code=PLTMORPH) CBC W/AUTO [id number] 04:53:00* Test Item Value Reference Range Comments WHITE BLOOD CELL (test code=WBC) 5.5 K/mm3 4.5-12.5 RED BLOOD CELL (test code=RBC) 4.25 mill/mm3 4.0-5.8 HEMOGLOBIN (test code=HGB) 10.6 gram/dL 13.0-17.5 HEMATOCRIT (test code=HCT) 34.3 % 42.0-52.0 MEAN CELL VOLUME (test code=MCV) 80.7 fL 80-98 MEAN CELL HGB (test code=MCH) 24.9 picogram 27.0-33.0 MEAN CELL HGB CONCETRATION (test code=MCHC) 30.9 gram/dL 33.0-36.0 RED CELL DISTRIBUTION WIDTH (test code=RDW) 15.3 % 11.6-16.2 RED CELL DISTRIBUTION WIDTH SD (test code=RDW-SD) 44.7 fL 37.0-51.0 PLATELET COUNT (test code=PLT) 87 K/mm3 150-450 MEAN PLATELET VOLUME (test code=MPV) 12.0 fL 6.7-11.0 NEUTROPHIL % (test code=NT%) 71.7 % 39.0-69.0 IMMATURE GRANULOCYTE % (test code=IG%) 1.5 % 0.0-5.0 LYMPHOCYTE % (test code=LY%) 15.5 % 25.0-55.0 MONOCYTE % (test code=MO%) 9.5 % 0.0-10.0 EOSINOPHIL % (test code=EO%) 1.6 % 0.0-5.0 BASOPHIL % (test code=BA%) 0.2 % 0.0-1.0 NUCLEATED RBC % (test code=NRBC%) 0.0 % 0-0 NEUTROPHIL # (test code=NT#) 3.93 K/mm3 1.8-7.7 IMMATURE GRANULOCYTE # (test code=IG#) 0.08 x10 3/uL 0-0.03 LYMPHOCYTE # (test code=LY#) 0.85 K/mm3 1.0-5.0 MONOCYTE # (test code=MO#) 0.52 K/mm3 0-0.8 EOSINOPHIL # (test code=EO#) 0.09 K/mm3 0.0-0.5 BASOPHIL # (test code=BA#) 0.01 K/mm3 0.0-0.2 NUCLEATED RBC # (test code=NRBC#) 0.00 K/mm3 0.0-0.1 MANUAL DIFF REQUIRED (test code=MDIFF) NO, ONLY SCAN NEEDED DIFFERENTIAL [id number] 04:53:00* Test Item Value Reference Range Comments STAIN ACCEPTABILITY (test code=STN ACCEPTABLE) CABOT RINGS (test code=CAB) MORPHOLOGY COMMENT (test code=MOC) PLATELET ESTIMATE (test code=PLTEST) PLATELET MORPHOLOGY (test code=PLTMORPH) [id number] 21:58:00* Test Item Value Reference Range Comments GLUBED (test code=GLUBED) 228 mg/dL 74-106 Performed by certified boom crane operator at [facility] LACTIC DEHYDROGENASE(LDH)2019-07-08 16:55:00* Test Item Value Reference Range Comments LACTIC DEHYDROGENASE(LDH) (test code=LDH) 393 IUnit/L 84-246 VITAMIN [id number] 16:55:00* Test Item Value Reference Range Comments VITAMIN B12 (test code=VITB12) 3560 pg/mL 193-986 FOLIC [id number] 16:55:00* Test Item Value Reference Range Comments FOLIC ACID (test code=FOL) 14.3 ng/mL 3.10-17.50 [id number] 16:55:00* Test Item Value Reference Range Comments FERRITIN (test code=CHESTER) 52 ng/mL 8-388 [id number] 16:32:00* Test Item Value Reference Range Comments GLUBED (test code=GLUBED) 114 mg/dL 74-106 Performed by certified boom crane operator at [facility] HEPARIN INDUCED [id number] 16:23:00* Test Item Value Reference Range Comments HEPARIN INDUCED THROMBOCYTOPEN (test code=HIT) NEGATIVE NEGATIVE BASIC METABOLIC [id number] 16:14:00* Test Item Value Reference Range Comments SODIUM (test code=NA) 135 mmol/L 136-145 RESULT VERIFIED BY REPEAT ANALYSIS POTASSIUM (test code=K) 4.0 mmol/L 3.5-5.1 CHLORIDE (test code=CL) 99.0 mmol/L 98-107 CARBON DIOXIDE (test code=CO2) 28.0 mmol/L 21-32 ANION GAP (test code=GAP) 12.0 10-20 GLUCOSE (test code=GLU) 151 mg/dL 74-106 BLOOD UREA NITROGEN (test code=BUN) 46 mg/dL 7-18 GLOMERULAR FILTRATION RATE (test code=GFR) 17 mL/min >=60 Estimated GFR by using Modified MDRD formula.Chronic kidney disease is defined as either kidney damageor GFR <60 mL/min/1.73 m2 for >3 months. CREATININE (test code=CREAT) 3.60 mg/dL 0.7-1.3 CALCIUM (test code=CA) 7.5 mg/dL 8.5-10.1 HEPATIC FUNCTION [id number] 16:14:00* Test Item Value Reference Range Comments TOTAL PROTEIN (test code=PROT) 4.7 gram/dL 6.4-8.2 ALBUMIN (test code=ALB) 2.7 g/dL 3.4-5.0 BILIRUBIN TOTAL (test code=BILT) 2.90 mg/dL 0.0-1.0 BILIRUBIN DIRECT (test code=BILD) 2.09 mg/dL 0.0-0.20 BILIRUBIN INDIRECT (test code=BILIND) 0.81 mg/dL SGOT/AST (test code=AST) 482 IUnit/L 15-37 SGPT/ALT (test code=ALT) 1181 IUnit/L 12-78 ALKALINE PHOSPHATASE TOTAL (test code=ALKP) 149 IUnit/L 45-117 Note change in reference range due to change in reagent. [id number] 16:14:00* Test Item Value Reference Range Comments PHOSPHORUS (test code=PHOS) 3.0 mg/dL 2.5-4.9 [id number] 16:14:00* Test Item Value Reference Range Comments MAGNESIUM (test code=MAG) 2.2 mg/dL 1.8-2.4 CALCIUM [id number] 16:14:00* Test Item Value Reference Range Comments CALCIUM IONIZED (test code=NATASHA) 1.10 mmol/L 1.12-1.32 BASIC METABOLIC [id number] 16:10:00* Test Item Value Reference Range Comments SODIUM (test code=NA) mmol/L 135-148 POTASSIUM (test code=K) mmol/L 3.5-5.1 CHLORIDE (test code=CL) mmol/L 101-109 CARBON DIOXIDE (test code=CO2) 28.0 mmol/L 21-32 ANION GAP (test code=GAP) mmol/L 10-20 GLUCOSE (test code=GLU) 151 mg/dL 74-106 BLOOD UREA NITROGEN (test code=BUN) 46 mg/dL 7-18 GLOMERULAR FILTRATION RATE (test code=GFR) 17 mL/min >=60 Estimated GFR by using Modified MDRD formula.Chronic kidney disease is defined as either kidney damageor GFR <60 mL/min/1.73 m2 for >3 months. CREATININE (test code=CREAT) 3.60 mg/dL 0.7-1.3 CALCIUM (test code=CA) 7.5 mg/dL 8.5-10.1 HEPATIC FUNCTION [id number] 16:10:00* Test Item Value Reference Range Comments TOTAL PROTEIN (test code=PROT) 4.7 gram/dL 6.4-8.2 ALBUMIN (test code=ALB) 2.7 g/dL 3.4-5.0 BILIRUBIN TOTAL (test code=BILT) 2.90 mg/dL 0.0-1.0 BILIRUBIN DIRECT (test code=BILD) 2.09 mg/dL 0.0-0.20 BILIRUBIN INDIRECT (test code=BILIND) 0.81 mg/dL SGOT/AST (test code=AST) 482 IUnit/L 15-37 SGPT/ALT (test code=ALT) 1181 IUnit/L 12-78 ALKALINE PHOSPHATASE TOTAL (test code=ALKP) 149 IUnit/L 45-117 Note change in reference range due to change in reagent. [id number] 16:10:00* Test Item Value Reference Range Comments PHOSPHORUS (test code=PHOS) 3.0 mg/dL 2.5-4.9 [id number] 16:10:00* Test Item Value Reference Range Comments MAGNESIUM (test code=MAG) 2.2 mg/dL 1.8-2.4 CALCIUM [id number] 16:10:00* Test Item Value Reference Range Comments CALCIUM IONIZED (test code=NATASHA) 1.10 mmol/L 1.12-1.32 BASIC METABOLIC [id number] 15:59:00* Test Item Value Reference Range Comments SODIUM (test code=NA) mmol/L 135-148 POTASSIUM (test code=K) mmol/L 3.5-5.1 CHLORIDE (test code=CL) mmol/L 101-109 CARBON DIOXIDE (test code=CO2) mmol/L 21-32 ANION GAP (test code=GAP) mmol/L 10-20 GLUCOSE (test code=GLU) mg/dL 74-106 BLOOD UREA NITROGEN (test code=BUN) mg/dL 3-21 GLOMERULAR FILTRATION RATE (test code=GFR) mL/min >=60 CREATININE (test code=CREAT) mg/dL 0.55-1.3 CALCIUM (test code=CA) mg/dL 8.4-10.2 HEPATIC FUNCTION [id number] 15:59:00* Test Item Value Reference Range Comments TOTAL PROTEIN (test code=PROT) g/dL 6.5-8.4 ALBUMIN (test code=ALB) g/dL 3.4-4.8 BILIRUBIN TOTAL (test code=BILT) mg/dL 0.0-1.0 BILIRUBIN DIRECT (test code=BILD) mg/dL 0.0-0.30 BILIRUBIN INDIRECT (test code=BILIND) mg/dL 0-1.00 SGOT/AST (test code=AST) U/L 6-32 SGPT/ALT (test code=ALT) U/L 12-78 ALKALINE PHOSPHATASE TOTAL (test code=ALKP) U/L 38-126 [id number] 15:59:00* Test Item Value Reference Range Comments PHOSPHORUS (test code=PHOS) mg/dL 2.6-4.7 [id number] 15:59:00* Test Item Value Reference Range Comments MAGNESIUM (test code=MAG) mg/dL 1.6-2.3 CALCIUM [id number] 15:59:00* Test Item Value Reference Range Comments CALCIUM IONIZED (test code=NATASHA) 1.10 mmol/L 1.12-1.32 FE W/TOTAL IRON BINDING CAP.2019-07-08 15:53:00* Test Item Value Reference Range Comments SERUM IRON (test code=IRON) 16 ug/dL 50-175 TOTAL IRON BINDING CAPACITY (test code=TIBC) 374 mcg/dL 250-450 IRON SATURATION (test code=FESAT) 4.28 % 13-45 PROTHROMBIN [id number] 15:46:00* Test Item Value Reference Range Comments PROTHROMBIN TIME PATIENT (test code=PTP) 15.4 seconds 9.0-14.0 INTERNATIONAL NORMAL RATIO (test code=INR) 1.3 0.8-1.2 The therapeutic range for oral anticoagulant therapy formost indications is an international normalized ratio (INR)of between 2.0 and 3.0. The recommended therapeutic INRrange for various clinical situations is listed below: Clinical Situation INR range Pulmonary e mbolism treatment (2.0-3.0)Venous thrombosis treatmentVenous thrombosis prophylaxis (high risk surgery)Prevention of systemic embolism from: Acute myocardial infarction Valvular heart disease Atrial fibrillation Mechanical prosthetic heart valves (2.5-3.5) IS PATIENT ON ANTICOAGULANTS? NRETICULOCYTE [id number] 15:43:00* Test Item Value Reference Range Comments RETICULOCYTE COUNT (test code=RETICT) 2.37 % 0.5-2.0 RETIC COUNT ABSOLUTE (test code=RET#) 0.099 mill/mm3 0.016-0.095 IMMATURE RETICULOCYTE FRACTION (test code=IRF) 25.2 % 2.3-13.4 Values above normal range indicate an increase in RBCcellular response from bone marrow. RETICULOCYTE HGB EQUIVALENT (test code=RETHE) 20.0 pg 28.2-35.7 RET-He is a direct estimate of recent functionalavailability of iron in the cell, therefore, decreasedRET-He is indicative of iron deficiency. SMEAR PERIPHERAL [id number] 15:43:00* Test Item Value Reference Range Comments SMEAR PERIPHERAL BLOOD (test code=BLDSM) PATH REV PATH REVIEW [id number] 12:31:00* Test Item Value Reference Range Comments GLUBED (test code=GLUBED) 165 mg/dL 74-106 Performed by certified boom crane operator at [facility] [id number] 08:39:00* Test Item Value Reference Range Comments GLUBED (test code=GLUBED) 159 mg/dL 74-106 Performed by certified boom crane operator at [facility] HEPATITIS B CORE ANTIBODY,[id number] 07:12:00* Test Item Value Reference Range Comments HEPATITIS B CORE ANTIBODY,TOT (test code=HBCAB) Negative Negative Performed At: [employer] [facility] [address] [id number] Russell MD Ph:[phone] AB HEPATITIS B [id number] 07:12:00* Test Item Value Reference Range Comments AB HEPATITIS B SURFACE (test code=HBSAB) Non Reactive () Non Reactive: Inconsistent with immunity, less than 10 mIU/mL Reactive: Consistent with immunity, greater than 9.9 mIU/mLPerformed At: [facility] [address] [id number] Russell MD Ph:[phone] CBC W/AUTO [id number] 06:44:00* Test Item Value Reference Range Comments WHITE BLOOD CELL (test code=WBC) 5.3 K/mm3 4.5-12.5 RED BLOOD CELL (test code=RBC) 4.10 mill/mm3 4.0-5.8 HEMOGLOBIN (test code=HGB) 10.3 gram/dL 13.0-17.5 HEMATOCRIT (test code=HCT) 33.6 % 42.0-52.0 MEAN CELL VOLUME (test code=MCV) 82.0 fL 80-98 RESULT VERIFIED BY REPEAT ANALYSIS MEAN CELL HGB (test code=MCH) 25.1 picogram 27.0-33.0 MEAN CELL HGB CONCETRATION (test code=MCHC) 30.7 gram/dL 33.0-36.0 RED CELL DISTRIBUTION WIDTH (test code=RDW) 15.3 % 11.6-16.2 RED CELL DISTRIBUTION WIDTH SD (test code=RDW-SD) 45.3 fL 37.0-51.0 PLATELET COUNT (test code=PLT) 91 K/mm3 150-450 MEAN PLATELET VOLUME (test code=MPV) 11.9 fL 6.7-11.0 NEUTROPHIL % (test code=NT%) 79.6 % 39.0-69.0 IMMATURE GRANULOCYTE % (test code=IG%) 1.5 % 0.0-5.0 LYMPHOCYTE % (test code=LY%) 11.8 % 25.0-55.0 MONOCYTE % (test code=MO%) 6.7 % 0.0-10.0 EOSINOPHIL % (test code=EO%) 0.4 % 0.0-5.0 BASOPHIL % (test code=BA%) 0.0 % 0.0-1.0 NUCLEATED RBC % (test code=NRBC%) 0.4 % 0-0 NEUTROPHIL # (test code=NT#) 4.25 K/mm3 1.8-7.7 IMMATURE GRANULOCYTE # (test code=IG#) 0.08 x10 3/uL 0-0.03 LYMPHOCYTE # (test code=LY#) 0.63 K/mm3 1.0-5.0 MONOCYTE # (test code=MO#) 0.36 K/mm3 0-0.8 EOSINOPHIL # (test code=EO#) 0.02 K/mm3 0.0-0.5 BASOPHIL # (test code=BA#) 0.00 K/mm3 0.0-0.2 NUCLEATED RBC # (test code=NRBC#) 0.02 K/mm3 0.0-0.1 MANUAL DIFF REQUIRED (test code=MDIFF) NO, ONLY SCAN NEEDED DIFFERENTIAL [id number] 06:44:00* Test Item Value Reference Range Comments STAIN ACCEPTABILITY (test code=STN ACCEPTABLE) STAIN ACCEPTABLE MORPHOLOGY COMMENT (test code=MOC) NORMAL PLATELET ESTIMATE (test code=PLTEST) DECREASED PLATELET MORPHOLOGY (test code=PLTMORPH) NORMAL BASIC METABOLIC [id number] 05:35:00* Test Item Value Reference Range Comments SODIUM (test code=NA) 140 mmol/L 136-145 POTASSIUM (test code=K) 4.2 mmol/L 3.5-5.1 CHLORIDE (test code=CL) 104.0 mmol/L 98-107 CARBON DIOXIDE (test code=CO2) 27.0 mmol/L 21-32 ANION GAP (test code=GAP) 13.2 10-20 GLUCOSE (test code=GLU) 190 mg/dL 74-106 BLOOD UREA NITROGEN (test code=BUN) 40 mg/dL 7-18 GLOMERULAR FILTRATION RATE (test code=GFR) 16 mL/min >=60 Estimated GFR by using Modified MDRD formula.Chronic kidney disease is defined as either kidney damageor GFR <60 mL/min/1.73 m2 for >3 months. CREATININE (test code=CREAT) 3.70 mg/dL 0.7-1.3 BUN/CREATININE RATIO (test code=BUN/CREA) 10.8 10-20 CALCIUM (test code=CA) 7.2 mg/dL 8.5-10.1 HEPATIC FUNCTION [id number] 05:35:00* Test Item Value Reference Range Comments TOTAL PROTEIN (test code=PROT) 4.9 gram/dL 6.4-8.2 ALBUMIN (test code=ALB) 2.6 g/dL 3.4-5.0 GLOBULIN (test code=GLOB) 2.3 gram/dL 2.7-4.2 ALBUMIN/GLOBULIN RATIO (test code=A/G) 1.1 0.75-1.50 BILIRUBIN TOTAL (test code=BILT) 2.60 mg/dL 0.0-1.0 BILIRUBIN DIRECT (test code=BILD) 1.67 mg/dL 0.0-0.20 SGOT/AST (test code=AST) 865 IUnit/L 15-37 SGPT/ALT (test code=ALT) 1324 IUnit/L 12-78 ALKALINE PHOSPHATASE TOTAL (test code=ALKP) 101 IUnit/L 45-117 Note change in reference range due to change in reagent. [id number] 05:35:00* Test Item Value Reference Range Comments PHOSPHORUS (test code=PHOS) 3.9 mg/dL 2.5-4.9 [id number] 05:35:00* Test Item Value Reference Range Comments MAGNESIUM (test code=MAG) 1.7 mg/dL 1.8-2.4 CALCIUM [id number] 05:35:00* Test Item Value Reference Range Comments CALCIUM IONIZED (test code=NATASHA) 1.03 mmol/L 1.12-1.32 BASIC METABOLIC [id number] 05:26:00* Test Item Value Reference Range Comments SODIUM (test code=NA) 140 mmol/L 136-145 POTASSIUM (test code=K) 4.2 mmol/L 3.5-5.1 CHLORIDE (test code=CL) 104.0 mmol/L 98-107 CARBON DIOXIDE (test code=CO2) mmol/L 21-32 ANION GAP (test code=GAP) 10-20 GLUCOSE (test code=GLU) mg/dL 74-106 BLOOD UREA NITROGEN (test code=BUN) mg/dL 7-18 GLOMERULAR FILTRATION RATE (test code=GFR) mL/min >=60 CREATININE (test code=CREAT) mg/dL 0.7-1.3 BUN/CREATININE RATIO (test code=BUN/CREA) 10-20 CALCIUM (test code=CA) mg/dL 8.5-10.1 HEPATIC FUNCTION [id number] 05:26:00* Test Item Value Reference Range Comments TOTAL PROTEIN (test code=PROT) gram/dL 6.4-8.2 ALBUMIN (test code=ALB) g/dL 3.4-5.0 GLOBULIN (test code=GLOB) gram/dL 2.7-4.2 ALBUMIN/GLOBULIN RATIO (test code=A/G) 0.75-1.50 BILIRUBIN TOTAL (test code=BILT) mg/dL 0.0-1.0 BILIRUBIN DIRECT (test code=BILD) mg/dL 0.0-0.20 SGOT/AST (test code=AST) IUnit/L 15-37 SGPT/ALT (test code=ALT) IUnit/L 12-78 ALKALINE PHOSPHATASE TOTAL (test code=ALKP) IUnit/L 45-117 [id number] 05:26:00* Test Item Value Reference Range Comments PHOSPHORUS (test code=PHOS) mg/dL 2.5-4.9 [id number] 05:26:00* Test Item Value Reference Range Comments MAGNESIUM (test code=MAG) mg/dL 1.8-2.4 CALCIUM [id number] 05:26:00* Test Item Value Reference Range Comments CALCIUM IONIZED (test code=NATASHA) 1.03 mmol/L 1.12-1.32 BASIC METABOLIC [id number] 05:23:00* Test Item Value Reference Range Comments SODIUM (test code=NA) mmol/L 136-145 POTASSIUM (test code=K) mmol/L 3.5-5.1 CHLORIDE (test code=CL) mmol/L 98-107 CARBON DIOXIDE (test code=CO2) mmol/L 21-32 ANION GAP (test code=GAP) 10-20 GLUCOSE (test code=GLU) mg/dL 74-106 BLOOD UREA NITROGEN (test code=BUN) mg/dL 7-18 GLOMERULAR FILTRATION RATE (test code=GFR) mL/min >=60 CREATININE (test code=CREAT) mg/dL 0.7-1.3 BUN/CREATININE RATIO (test code=BUN/CREA) 10-20 CALCIUM (test code=CA) mg/dL 8.5-10.1 HEPATIC FUNCTION [id number] 05:23:00* Test Item Value Reference Range Comments TOTAL PROTEIN (test code=PROT) gram/dL 6.4-8.2 ALBUMIN (test code=ALB) g/dL 3.4-5.0 GLOBULIN (test code=GLOB) gram/dL 2.7-4.2 ALBUMIN/GLOBULIN RATIO (test code=A/G) 0.75-1.50 BILIRUBIN TOTAL (test code=BILT) mg/dL 0.0-1.0 BILIRUBIN DIRECT (test code=BILD) mg/dL 0.0-0.20 SGOT/AST (test code=AST) IUnit/L 15-37 SGPT/ALT (test code=ALT) IUnit/L 12-78 ALKALINE PHOSPHATASE TOTAL (test code=ALKP) IUnit/L 45-117 [id number] 05:23:00* Test Item Value Reference Range Comments PHOSPHORUS (test code=PHOS) mg/dL 2.5-4.9 [id number] 05:23:00* Test Item Value Reference Range Comments MAGNESIUM (test code=MAG) mg/dL 1.8-2.4 CALCIUM [id number] 05:23:00* Test Item Value Reference Range Comments CALCIUM IONIZED (test code=NATASHA) 1.03 mmol/L 1.12-1.32 CBC W/AUTO [id number] 05:20:00* Test Item Value Reference Range Comments WHITE BLOOD CELL (test code=WBC) 5.3 K/mm3 4.5-12.5 RED BLOOD CELL (test code=RBC) 4.10 mill/mm3 4.0-5.8 HEMOGLOBIN (test code=HGB) 10.3 gram/dL 13.0-17.5 HEMATOCRIT (test code=HCT) 33.6 % 42.0-52.0 MEAN CELL VOLUME (test code=MCV) 82.0 fL 80-98 RESULT VERIFIED BY REPEAT ANALYSIS MEAN CELL HGB (test code=MCH) 25.1 picogram 27.0-33.0 MEAN CELL HGB CONCETRATION (test code=MCHC) 30.7 gram/dL 33.0-36.0 RED CELL DISTRIBUTION WIDTH (test code=RDW) 15.3 % 11.6-16.2 RED CELL DISTRIBUTION WIDTH SD (test code=RDW-SD) 45.3 fL 37.0-51.0 PLATELET COUNT (test code=PLT) 91 K/mm3 150-450 MEAN PLATELET VOLUME (test code=MPV) 11.9 fL 6.7-11.0 NEUTROPHIL % (test code=NT%) 79.6 % 39.0-69.0 IMMATURE GRANULOCYTE % (test code=IG%) 1.5 % 0.0-5.0 LYMPHOCYTE % (test code=LY%) 11.8 % 25.0-55.0 MONOCYTE % (test code=MO%) 6.7 % 0.0-10.0 EOSINOPHIL % (test code=EO%) 0.4 % 0.0-5.0 BASOPHIL % (test code=BA%) 0.0 % 0.0-1.0 NUCLEATED RBC % (test code=NRBC%) 0.4 % 0-0 NEUTROPHIL # (test code=NT#) 4.25 K/mm3 1.8-7.7 IMMATURE GRANULOCYTE # (test code=IG#) 0.08 x10 3/uL 0-0.03 LYMPHOCYTE # (test code=LY#) 0.63 K/mm3 1.0-5.0 MONOCYTE # (test code=MO#) 0.36 K/mm3 0-0.8 EOSINOPHIL # (test code=EO#) 0.02 K/mm3 0.0-0.5 BASOPHIL # (test code=BA#) 0.00 K/mm3 0.0-0.2 NUCLEATED RBC # (test code=NRBC#) 0.02 K/mm3 0.0-0.1 MANUAL DIFF REQUIRED (test code=MDIFF) NO, ONLY SCAN NEEDED DIFFERENTIAL [id number] 05:20:00* Test Item Value Reference Range Comments STAIN ACCEPTABILITY (test code=STN ACCEPTABLE) CABOT RINGS (test code=CAB) MORPHOLOGY COMMENT (test code=MOC) PLATELET ESTIMATE (test code=PLTEST) PLATELET MORPHOLOGY (test code=PLTMORPH) CBC W/AUTO [id number] 05:20:00* Test Item Value Reference Range Comments WHITE BLOOD CELL (test code=WBC) 5.3 K/mm3 4.5-12.5 RED BLOOD CELL (test code=RBC) 4.10 mill/mm3 4.0-5.8 HEMOGLOBIN (test code=HGB) 10.3 gram/dL 13.0-17.5 HEMATOCRIT (test code=HCT) 33.6 % 42.0-52.0 MEAN CELL VOLUME (test code=MCV) 82.0 fL 80-98 RESULT VERIFIED BY REPEAT ANALYSIS MEAN CELL HGB (test code=MCH) 25.1 picogram 27.0-33.0 MEAN CELL HGB CONCETRATION (test code=MCHC) 30.7 gram/dL 33.0-36.0 RED CELL DISTRIBUTION WIDTH (test code=RDW) 15.3 % 11.6-16.2 RED CELL DISTRIBUTION WIDTH SD (test code=RDW-SD) 45.3 fL 37.0-51.0 PLATELET COUNT (test code=PLT) 91 K/mm3 150-450 MEAN PLATELET VOLUME (test code=MPV) 11.9 fL 6.7-11.0 NEUTROPHIL % (test code=NT%) 79.6 % 39.0-69.0 IMMATURE GRANULOCYTE % (test code=IG%) 1.5 % 0.0-5.0 LYMPHOCYTE % (test code=LY%) 11.8 % 25.0-55.0 MONOCYTE % (test code=MO%) 6.7 % 0.0-10.0 EOSINOPHIL % (test code=EO%) 0.4 % 0.0-5.0 BASOPHIL % (test code=BA%) 0.0 % 0.0-1.0 NUCLEATED RBC % (test code=NRBC%) 0.4 % 0-0 NEUTROPHIL # (test code=NT#) 4.25 K/mm3 1.8-7.7 IMMATURE GRANULOCYTE # (test code=IG#) 0.08 x10 3/uL 0-0.03 LYMPHOCYTE # (test code=LY#) 0.63 K/mm3 1.0-5.0 MONOCYTE # (test code=MO#) 0.36 K/mm3 0-0.8 EOSINOPHIL # (test code=EO#) 0.02 K/mm3 0.0-0.5 BASOPHIL # (test code=BA#) 0.00 K/mm3 0.0-0.2 NUCLEATED RBC # (test code=NRBC#) 0.02 K/mm3 0.0-0.1 MANUAL DIFF REQUIRED (test code=MDIFF) NO, ONLY SCAN NEEDED DIFFERENTIAL [id number] 05:20:00* Test Item Value Reference Range Comments STAIN ACCEPTABILITY (test code=STN ACCEPTABLE) CABOT RINGS (test code=CAB) MORPHOLOGY COMMENT (test code=MOC) PLATELET ESTIMATE (test code=PLTEST) PLATELET MORPHOLOGY (test code=PLTMORPH) CBC W/AUTO [id number] 05:20:00* Test Item Value Reference Range Comments WHITE BLOOD CELL (test code=WBC) 5.3 K/mm3 4.5-12.5 RED BLOOD CELL (test code=RBC) 4.10 mill/mm3 4.0-5.8 HEMOGLOBIN (test code=HGB) 10.3 gram/dL 13.0-17.5 HEMATOCRIT (test code=HCT) 33.6 % 42.0-52.0 MEAN CELL VOLUME (test code=MCV) 82.0 fL 80-98 RESULT VERIFIED BY REPEAT ANALYSIS MEAN CELL HGB (test code=MCH) 25.1 picogram 27.0-33.0 MEAN CELL HGB CONCETRATION (test code=MCHC) 30.7 gram/dL 33.0-36.0 RED CELL DISTRIBUTION WIDTH (test code=RDW) 15.3 % 11.6-16.2 RED CELL DISTRIBUTION WIDTH SD (test code=RDW-SD) 45.3 fL 37.0-51.0 PLATELET COUNT (test code=PLT) 91 K/mm3 150-450 MEAN PLATELET VOLUME (test code=MPV) 11.9 fL 6.7-11.0 NEUTROPHIL % (test code=NT%) 79.6 % 39.0-69.0 IMMATURE GRANULOCYTE % (test code=IG%) 1.5 % 0.0-5.0 LYMPHOCYTE % (test code=LY%) 11.8 % 25.0-55.0 MONOCYTE % (test code=MO%) 6.7 % 0.0-10.0 EOSINOPHIL % (test code=EO%) 0.4 % 0.0-5.0 BASOPHIL % (test code=BA%) 0.0 % 0.0-1.0 NUCLEATED RBC % (test code=NRBC%) 0.4 % 0-0 NEUTROPHIL # (test code=NT#) 4.25 K/mm3 1.8-7.7 IMMATURE GRANULOCYTE # (test code=IG#) 0.08 x10 3/uL 0-0.03 LYMPHOCYTE # (test code=LY#) 0.63 K/mm3 1.0-5.0 MONOCYTE # (test code=MO#) 0.36 K/mm3 0-0.8 EOSINOPHIL # (test code=EO#) 0.02 K/mm3 0.0-0.5 BASOPHIL # (test code=BA#) 0.00 K/mm3 0.0-0.2 NUCLEATED RBC # (test code=NRBC#) 0.02 K/mm3 0.0-0.1 MANUAL DIFF REQUIRED (test code=MDIFF) NO, ONLY SCAN NEEDED DIFFERENTIAL [id number] 05:20:00* Test Item Value Reference Range Comments STAIN ACCEPTABILITY (test code=STN ACCEPTABLE) MORPHOLOGY COMMENT (test code=MOC) PLATELET ESTIMATE (test code=PLTEST) PLATELET MORPHOLOGY (test code=PLTMORPH) CBC W/AUTO [id number] 05:20:00* Test Item Value Reference Range Comments WHITE BLOOD CELL (test code=WBC) 5.3 K/mm3 4.5-12.5 RED BLOOD CELL (test code=RBC) 4.10 mill/mm3 4.0-5.8 HEMOGLOBIN (test code=HGB) 10.3 gram/dL 13.0-17.5 HEMATOCRIT (test code=HCT) 33.6 % 42.0-52.0 MEAN CELL VOLUME (test code=MCV) 82.0 fL 80-98 RESULT VERIFIED BY REPEAT ANALYSIS MEAN CELL HGB (test code=MCH) 25.1 picogram 27.0-33.0 MEAN CELL HGB CONCETRATION (test code=MCHC) 30.7 gram/dL 33.0-36.0 RED CELL DISTRIBUTION WIDTH (test code=RDW) 15.3 % 11.6-16.2 RED CELL DISTRIBUTION WIDTH SD (test code=RDW-SD) 45.3 fL 37.0-51.0 PLATELET COUNT (test code=PLT) 91 K/mm3 150-450 MEAN PLATELET VOLUME (test code=MPV) 11.9 fL 6.7-11.0 NEUTROPHIL % (test code=NT%) 79.6 % 39.0-69.0 IMMATURE GRANULOCYTE % (test code=IG%) 1.5 % 0.0-5.0 LYMPHOCYTE % (test code=LY%) 11.8 % 25.0-55.0 MONOCYTE % (test code=MO%) 6.7 % 0.0-10.0 EOSINOPHIL % (test code=EO%) 0.4 % 0.0-5.0 BASOPHIL % (test code=BA%) 0.0 % 0.0-1.0 NUCLEATED RBC % (test code=NRBC%) 0.4 % 0-0 NEUTROPHIL # (test code=NT#) 4.25 K/mm3 1.8-7.7 IMMATURE GRANULOCYTE # (test code=IG#) 0.08 x10 3/uL 0-0.03 LYMPHOCYTE # (test code=LY#) 0.63 K/mm3 1.0-5.0 MONOCYTE # (test code=MO#) 0.36 K/mm3 0-0.8 EOSINOPHIL # (test code=EO#) 0.02 K/mm3 0.0-0.5 BASOPHIL # (test code=BA#) 0.00 K/mm3 0.0-0.2 NUCLEATED RBC # (test code=NRBC#) 0.02 K/mm3 0.0-0.1 MANUAL DIFF REQUIRED (test code=MDIFF) NO, ONLY SCAN NEEDED DIFFERENTIAL [id number] 05:20:00* Test Item Value Reference Range Comments STAIN ACCEPTABILITY (test code=STN ACCEPTABLE) CABOT RINGS (test code=CAB) MORPHOLOGY COMMENT (test code=MOC) PLATELET ESTIMATE (test code=PLTEST) PLATELET MORPHOLOGY (test code=PLTMORPH) [id number] 21:40:00* Test Item Value Reference Range Comments GLUBED (test code=GLUBED) 159 mg/dL 74-106 Performed by certified boom crane operator at [facility] [id number] 17:00:00* Test Item Value Reference Range Comments GLUBED (test code=GLUBED) 145 mg/dL 74-106 Performed by certified boom crane operator at [facility] THROMBOPLASTIN TIME [id number] 12:31:00* Test Item Value Reference Range Comments THROMBOPLASTIN TIME PARTIAL (test code=PTT) 46.8 seconds 25.0-36.5 IS PATIENT ON ANTICOAGULANTS? YLIST ANTICOAGULANTS HEPARINLACTIC ACID 2019-07-07 12:31:00* Test Item Value Reference Range Comments LACTIC ACID (test code=LACT) 1.3 mmol/L 0.4-1.9 [id number] 11:57:00* Test Item Value Reference Range Comments GLUBED (test code=GLUBED) 157 mg/dL 74-106 Performed by certified boom crane operator at [facility] THROMBOPLASTIN TIME [id number] 07:58:00* Test Item Value Reference Range Comments THROMBOPLASTIN TIME PARTIAL (test code=PTT) 76.6 seconds 25.0-36.5 IS PATIENT ON ANTICOAGULANTS? YLIST ANTICOAGULANTS HEPARINPROTHROMBIN TIME 2019-07-07 07:58:00* Test Item Value Reference Range Comments PROTHROMBIN TIME PATIENT (test code=PTP) 24.6 seconds 9.0-14.0 INTERNATIONAL NORMAL RATIO (test code=INR) 2.1 0.8-1.2 The therapeutic range for oral anticoagulant therapy formost indications is an international normalized ratio (INR)of between 2.0 and 3.0. The recommended therapeutic INRrange for various clinical situations is listed below: Clinical Situation INR range Pulmonary e mbolism treatment (2.0-3.0)Venous thrombosis treatmentVenous thrombosis prophylaxis (high risk surgery)Prevention of systemic embolism from: Acute myocardial infarction Valvular heart disease Atrial fibrillation Mechanical prosthetic heart valves (2.5-3.5) IS PATIENT ON ANTICOAGULANTS? N- XR CHEST 1 [id number] 07:38:00 FAX: Shonda Cindi Gonzalez [phone] [place]: St: ADM FAX: Myesha Henderson MD [phone] FAX: Lisa Greene NP [phone] --------- Name: TRACY DIAZ [facility] : 1950 Age/S: 69/M [address] #: [id number] Loc: V.S[address] [place] [address] Phys: Lisa Greene NP Acct: [id number] Dis Date: Status: ADM IN [facility] #: [phone] Exam Date: 07/07/2019 0532 FAX #: [phone] Reason: CHF EXAMS: CPT CODE: [id number] XR CHEST 1 V [id number] REASON FOR EXAM: CHF Exam Order Date: 07/07/2019 2:00 AM Or robert MJeannette: Lisa Greene NP PROCEDURE: - XR CHEST 1 V COMPARISON: Chest x-ray the previous evening FINDINGS: Lung volumes are diminished which causes crowding of the bronchovascular structures. There is engorgement of the pulmonary vessels which has increased from the previous exam. Additionally there appears to be an airspace opacity in the left lung base that obscures the left hemidiaphra gm. This opacity may represent atelectasis, consolidation, and/or pleural effusion. The cardiomediastinal silhouette is enlarged howev er this may be exacerbated by the low lung volumes. Right IJ central line is unchanged in position. There are degenerative changes in the spine. The visualized upper abdomen is within normal limits. IMPRESSION: Worsening engorgement of the pulmonary vessels and interval development of left lung base opacity. Location: RR Electronically Signed by Mc Chen MD on 06/20 at 0738 Reported and signed by: Mc Chen MD PAGE 1 Signed Report (CONTINUED) FAX: Shonda Gonzalez Si [phone] [place]: St: ADM FAX: Myesha Henderson MD [phone] FAX: Lisa Greene NP Name: TRACY DIAZ [facility] : 1950 Age/S: 69/M [address] [facility] #: [id number] Loc: [address] [address] Phys: Lisa Greene NP Acct: [id number] Dis Date: Status: ADM IN P SWETHA #: [phone] Exam Date: 07/07/2019 0532 FA X #: [phone] Reason: CHF EXAMS: CPT CODE: [id number] XR CHEST 1 V 04760 <Continued> CC: Abigail Gonzalez MD; Myesha Henderson MD; Lisa Greene NP Technologist: BRYAN Smith Trnscrd Date/Time/By: 07/07/2019 (0738) : By: [email or web address] Orig Print D/T: S: 07/07/2019 (0742) PAGE 2 Signed Report LACTIC [id number] 06:21:00* Test Item Value Reference Range Comments LACTIC ACID (test code=LACT) 2.1 mmol/L 0.4-1.9 Results called to [id number] by [email or web address] 07/07/19 0620Critical results verified and read back by Nurse? YES CBC W/AUTO [id number] 04:45:00* Test Item Value Reference Range Comments WHITE BLOOD CELL (test code=WBC) 10.9 K/mm3 4.5-12.5 RED BLOOD CELL (test code=RBC) 3.98 mill/mm3 4.0-5.8 HEMOGLOBIN (test code=HGB) 10.1 gram/dL 13.0-17.5 RESULT VERIFIED BY REPEAT ANALYSIS HEMATOCRIT (test code=HCT) 30.9 % 42.0-52.0 MEAN CELL VOLUME (test code=MCV) 77.6 fL 80-98 RESULT VERIFIED BY REPEAT ANALYSIS MEAN CELL HGB (test code=MCH) 25.4 picogram 27.0-33.0 MEAN CELL HGB CONCETRATION (test code=MCHC) 32.7 gram/dL 33.0-36.0 RED CELL DISTRIBUTION WIDTH (test code=RDW) 15.1 % 11.6-16.2 RED CELL DISTRIBUTION WIDTH SD (test code=RDW-SD) 41.8 fL 37.0-51.0 PLATELET COUNT (test code=PLT) 114 K/mm3 150-450 MEAN PLATELET VOLUME (test code=MPV) 12.2 fL 6.7-11.0 NEUTROPHIL % (test code=NT%) 85.5 % 39.0-69.0 IMMATURE GRANULOCYTE % (test code=IG%) 1.2 % 0.0-5.0 LYMPHOCYTE % (test code=LY%) 8.1 % 25.0-55.0 MONOCYTE % (test code=MO%) 5.1 % 0.0-10.0 EOSINOPHIL % (test code=EO%) 0.0 % 0.0-5.0 BASOPHIL % (test code=BA%) 0.1 % 0.0-1.0 NUCLEATED RBC % (test code=NRBC%) 0.6 % 0-0 NEUTROPHIL # (test code=NT#) 9.34 K/mm3 1.8-7.7 IMMATURE GRANULOCYTE # (test code=IG#) 0.13 x10 3/uL 0-0.03 LYMPHOCYTE # (test code=LY#) 0.89 K/mm3 1.0-5.0 MONOCYTE # (test code=MO#) 0.56 K/mm3 0-0.8 EOSINOPHIL # (test code=EO#) 0.00 K/mm3 0.0-0.5 BASOPHIL # (test code=BA#) 0.01 K/mm3 0.0-0.2 NUCLEATED RBC # (test code=NRBC#) 0.07 K/mm3 0.0-0.1 MANUAL DIFF REQUIRED (test code=MDIFF) NO COMPREHENSIVE METABOLIC [id number] 04:23:00* Test Item Value Reference Range Comments SODIUM (test code=NA) 141 mmol/L 136-145 RESULT VERIFIED BY REPEAT ANALYSIS POTASSIUM (test code=K) 4.2 mmol/L 3.5-5.1 CHLORIDE (test code=CL) 101.0 mmol/L 98-107 CARBON DIOXIDE (test code=CO2) 26.0 mmol/L 21-32 ANION GAP (test code=GAP) 18.2 10-20 GLUCOSE (test code=GLU) 171 mg/dL 74-106 BLOOD UREA NITROGEN (test code=BUN) 66 mg/dL 7-18 RESULT VERIFIED BY REPEAT ANALYSIS GLOMERULAR FILTRATION RATE (test code=GFR) 11 mL/min >=60 Estimated GFR by using Modified MDRD formula.Chronic kidney disease is defined as either kidney damageor GFR <60 mL/min/1.73 m2 for >3 months. CREATININE (test code=CREAT) 5.40 mg/dL 0.7-1.3 BUN/CREATININE RATIO (test code=BUN/CREA) 12.2 10-20 TOTAL PROTEIN (test code=PROT) 4.9 gram/dL 6.4-8.2 ALBUMIN (test code=ALB) 3.0 g/dL 3.4-5.0 GLOBULIN (test code=GLOB) 1.9 gram/dL 2.7-4.2 ALBUMIN/GLOBULIN RATIO (test code=A/G) 1.6 0.75-1.50 CALCIUM (test code=CA) 7.5 mg/dL 8.5-10.1 BILIRUBIN TOTAL (test code=BILT) 2.60 mg/dL 0.0-1.0 SGOT/AST (test code=AST) 4638 IUnit/L 15-37 SGPT/ALT (test code=ALT) 2054 IUnit/L 12-78 ALKALINE PHOSPHATASE TOTAL (test code=ALKP) 86 IUnit/L 45-117 Note change in reference range due to change in reagent. [id number] 04:23:00* Test Item Value Reference Range Comments PHOSPHORUS (test code=PHOS) 5.2 mg/dL 2.5-4.9 [id number] 04:23:00* Test Item Value Reference Range Comments MAGNESIUM (test code=MAG) 1.9 mg/dL 1.8-2.4 THYROID STIMULATING [id number] 04:23:00* Test Item Value Reference Range Comments THYROID STIMULATING HORMONE (test code=TSH) 0.553 uIU/mL 0.36-3.74 TSH REFERENCE RANGES: EUTHYROID: 0.35 - 4.3 mIU/mL HYPO : > 5.5 mIU/mL HYPER : < 0.35 mIU/mL [id number] 04:23:00* Test Item Value Reference Range Comments TROPONIN-I (test code=TROPI) 9.590 ng/mL 0-0.045 PREVIOUSLY CALLED CALCIUM [id number] 04:23:00* Test Item Value Reference Range Comments CALCIUM IONIZED (test code=NATASHA) 0.97 mmol/L 1.12-1.32 B-TYPE NATRIURETIC [id number] 04:18:00* Test Item Value Reference Range Comments B-TYPE NATRIURETIC PEPTIDE (test code=BNP) 810.68 pgram/mL 0-100 [id number] 04:04:00* Test Item Value Reference Range Comments GLYCOSYLATED HEMOGLOBIN (HA1C) (test code=GLYHGB) 12.0 % HbA1 SUGGESTED DIAGNOSIS: HbA1C (%) Diabetic >6.4Prediabetes 5.7 - 6.4Normal <5.7 ESTIMATED AVERAGE GLUCOSE (test code=EAG) 298 MG/DL COMPREHENSIVE METABOLIC [id number] 03:53:00* Test Item Value Reference Range Comments SODIUM (test code=NA) 141 mmol/L 136-145 RESULT VERIFIED BY REPEAT ANALYSIS POTASSIUM (test code=K) 4.2 mmol/L 3.5-5.1 CHLORIDE (test code=CL) 101.0 mmol/L 98-107 CARBON DIOXIDE (test code=CO2) 26.0 mmol/L 21-32 ANION GAP (test code=GAP) 18.2 10-20 GLUCOSE (test code=GLU) 171 mg/dL 74-106 BLOOD UREA NITROGEN (test code=BUN) 66 mg/dL 7-18 RESULT VERIFIED BY REPEAT ANALYSIS GLOMERULAR FILTRATION RATE (test code=GFR) 11 mL/min >=60 Estimated GFR by using Modified MDRD formula.Chronic kidney disease is defined as either kidney damageor GFR <60 mL/min/1.73 m2 for >3 months. CREATININE (test code=CREAT) 5.40 mg/dL 0.7-1.3 BUN/CREATININE RATIO (test code=BUN/CREA) 12.2 10-20 TOTAL PROTEIN (test code=PROT) 4.9 gram/dL 6.4-8.2 ALBUMIN (test code=ALB) 3.0 g/dL 3.4-5.0 GLOBULIN (test code=GLOB) 1.9 gram/dL 2.7-4.2 ALBUMIN/GLOBULIN RATIO (test code=A/G) 1.6 0.75-1.50 CALCIUM (test code=CA) 7.5 mg/dL 8.5-10.1 BILIRUBIN TOTAL (test code=BILT) 2.60 mg/dL 0.0-1.0 SGOT/AST (test code=AST) 4638 IUnit/L 15-37 SGPT/ALT (test code=ALT) 2054 IUnit/L 12-78 ALKALINE PHOSPHATASE TOTAL (test code=ALKP) 86 IUnit/L 45-117 Note change in reference range due to change in reagent. [id number] 03:53:00* Test Item Value Reference Range Comments PHOSPHORUS (test code=PHOS) 5.2 mg/dL 2.5-4.9 [id number] 03:53:00* Test Item Value Reference Range Comments MAGNESIUM (test code=MAG) 1.9 mg/dL 1.8-2.4 THYROID STIMULATING [id number] 03:53:00* Test Item Value Reference Range Comments THYROID STIMULATING HORMONE (test code=TSH) uIU/mL 0.36-3.74 [id number] 03:53:00* Test Item Value Reference Range Comments TROPONIN-I (test code=TROPI) ng/mL 0-0.045 CALCIUM [id number] 03:53:00* Test Item Value Reference Range Comments CALCIUM IONIZED (test code=NATASHA) 0.97 mmol/L 1.12-1.32 COMPREHENSIVE METABOLIC [id number] 03:46:00* Test Item Value Reference Range Comments SODIUM (test code=NA) 141 mmol/L 136-145 RESULT VERIFIED BY REPEAT ANALYSIS POTASSIUM (test code=K) 4.2 mmol/L 3.5-5.1 CHLORIDE (test code=CL) 101.0 mmol/L 98-107 CARBON DIOXIDE (test code=CO2) mmol/L 21-32 ANION GAP (test code=GAP) 10-20 GLUCOSE (test code=GLU) mg/dL 74-106 BLOOD UREA NITROGEN (test code=BUN) mg/dL 7-18 GLOMERULAR FILTRATION RATE (test code=GFR) mL/min >=60 CREATININE (test code=CREAT) mg/dL 0.7-1.3 BUN/CREATININE RATIO (test code=BUN/CREA) 10-20 TOTAL PROTEIN (test code=PROT) gram/dL 6.4-8.2 ALBUMIN (test code=ALB) g/dL 3.4-5.0 GLOBULIN (test code=GLOB) gram/dL 2.7-4.2 ALBUMIN/GLOBULIN RATIO (test code=A/G) 0.75-1.50 CALCIUM (test code=CA) mg/dL 8.5-10.1 BILIRUBIN TOTAL (test code=BILT) mg/dL 0.0-1.0 SGOT/AST (test code=AST) IUnit/L 15-37 SGPT/ALT (test code=ALT) IUnit/L 12-78 ALKALINE PHOSPHATASE TOTAL (test code=ALKP) IUnit/L 45-117 [id number] 03:46:00* Test Item Value Reference Range Comments PHOSPHORUS (test code=PHOS) mg/dL 2.5-4.9 [id number] 03:46:00* Test Item Value Reference Range Comments MAGNESIUM (test code=MAG) mg/dL 1.8-2.4 THYROID STIMULATING [id number] 03:46:00* Test Item Value Reference Range Comments THYROID STIMULATING HORMONE (test code=TSH) uIU/mL 0.36-3.74 [id number] 03:46:00* Test Item Value Reference Range Comments TROPONIN-I (test code=TROPI) ng/mL 0-0.045 CALCIUM [id number] 03:46:00* Test Item Value Reference Range Comments CALCIUM IONIZED (test code=NATASHA) 0.97 mmol/L 1.12-1.32 LACTIC [id number] 03:15:00* Test Item Value Reference Range Comments LACTIC ACID (test code=LACT) 3.3 mmol/L 0.4-1.9 Results called to [id number] by [email or web address] 07/07/19 0314Critical results verified and read back by Nurse? YES COMPREHENSIVE METABOLIC [id number] 02:55:00* Test Item Value Reference Range Comments SODIUM (test code=NA) mmol/L 136-145 POTASSIUM (test code=K) mmol/L 3.5-5.1 CHLORIDE (test code=CL) mmol/L 98-107 CARBON DIOXIDE (test code=CO2) mmol/L 21-32 ANION GAP (test code=GAP) 10-20 GLUCOSE (test code=GLU) mg/dL 74-106 BLOOD UREA NITROGEN (test code=BUN) mg/dL 7-18 GLOMERULAR FILTRATION RATE (test code=GFR) mL/min >=60 CREATININE (test code=CREAT) mg/dL 0.7-1.3 BUN/CREATININE RATIO (test code=BUN/CREA) 10-20 TOTAL PROTEIN (test code=PROT) gram/dL 6.4-8.2 ALBUMIN (test code=ALB) g/dL 3.4-5.0 GLOBULIN (test code=GLOB) gram/dL 2.7-4.2 ALBUMIN/GLOBULIN RATIO (test code=A/G) 0.75-1.50 CALCIUM (test code=CA) mg/dL 8.5-10.1 BILIRUBIN TOTAL (test code=BILT) mg/dL 0.0-1.0 SGOT/AST (test code=AST) IUnit/L 15-37 SGPT/ALT (test code=ALT) IUnit/L 12-78 ALKALINE PHOSPHATASE TOTAL (test code=ALKP) IUnit/L 45-117 [id number] 02:55:00* Test Item Value Reference Range Comments PHOSPHORUS (test code=PHOS) mg/dL 2.5-4.9 [id number] 02:55:00* Test Item Value Reference Range Comments MAGNESIUM (test code=MAG) mg/dL 1.8-2.4 THYROID STIMULATING [id number] 02:55:00* Test Item Value Reference Range Comments THYROID STIMULATING HORMONE (test code=TSH) uIU/mL 0.36-3.74 [id number] 02:55:00* Test Item Value Reference Range Comments TROPONIN-I (test code=TROPI) ng/mL 0-0.045 CALCIUM [id number] 02:55:00* Test Item Value Reference Range Comments CALCIUM IONIZED (test code=NATASHA) 0.97 mmol/L 1.12-1.32 PROTHROMBIN [id number] 00:26:00* Test Item Value Reference Range Comments PROTHROMBIN TIME PATIENT (test code=PTP) 26.8 seconds 9.0-14.0 INTERNATIONAL NORMAL RATIO (test code=INR) 2.3 0.8-1.2 The therapeutic range for oral anticoagulant therapy formost indications is an international normalized ratio (INR)of between 2.0 and 3.0. The recommended therapeutic INRrange for various clinical situations is listed below: Clinical Situation INR range Pulmonary e mbolism treatment (2.0-3.0)Venous thrombosis treatmentVenous thrombosis prophylaxis (high risk surgery)Prevention of systemic embolism from: Acute myocardial infarction Valvular heart disease Atrial fibrillation Mechanical prosthetic heart valves (2.5-3.5) IS PATIENT ON ANTICOAGULANTS? YLIST ANTICOAGULANTS HEPARINTHROMBOPLASTIN TIME [id number] 00:26:00* Test Item Value Reference Range Comments THROMBOPLASTIN TIME PARTIAL (test code=PTT) 194.7 seconds 25.0-36.5 Results called to [id number] by [email or web address] 07/07/19 0024Critical results verified and read back by Nurse? Y IS PATIENT ON ANTICOAGULANTS? YLIST ANTICOAGULANTS [id number] 22:05:00* Test Item Value Reference Range Comments TROPONIN-I (test code=TROPI) 10.300 ng/mL 0-0.045 COMMENTS TO WAITSTAFF CAPTAIN: COLLECT 3 HOURS AFTER PREVIOUS [id number] 21:30:00* Test Item Value Reference Range Comments GLUBED (test code=GLUBED) 192 mg/dL 74-106 Performed by certified boom crane operator at [facility] - [facility] [id number] 20:20:00 Name: TRACY DIAZ [facility] : 1950 Age/S: 69 / M [address] [facility] Unit #: [id number] Loc: [place] [address] Phys: Hawa Goncalves MD Acct: [id number] Dis Date: Status: ADM IN PHONE #: [phone] Exam Date: 07/06/20192002 FAX #: [phone] Reason: clark EXAMS: CPT CODE: [id number] [employer] [address] HISTORY: Acute kidney insufficiency. COMPARISON: None available. Bilateral renal ultrasound: Location: [facility]. Moderate bilateral cortical atrophy and hyperechogenic kidneys suggesting mild chronic medical renal disease especially on the right side. No hydronephrosis or calyceal stones. No perinephric collections. Right kidney measuring 10 x 5.3 x 4.7 cm. Bosniak 1 lesion in the lower pole measuring 3.2 cm and interpolar Bosniak 1 lesion measured 1.4 cm. Left kidney measured 10.2 x 4.8 x 4.6 cm. Bosniak 2 lesion in the interpolar region with debris measuring 2.8 cm. Unremarkable incompletely distended urinary bladder without wall thickening or mural nodules. IMPRESSION: No hydronephrosis on either side. No calyceal stones either. Chronic medical renal disease with cortical atrophy especially on the right. Unremarkable incompletely distended urinary bladder. at 2019 Reported and signed by: Nikhil Almonte M.D. CC: Abigail Verdin MD; Myesha Henderson MD; Hawa Goncalves MD Technologist: Char Hernández RDMS Trnscb Date/Time: 07/06/2019 (2019) [email or web address] Orig Print D/T: S: 07/06/2019 (2022) Probe: PAGE 1 Signed Report COMPREHENSIVE METABOLIC [id number] 19:39:00* Test Item Value Reference Range Comments SODIUM (test code=NA) 135 mmol/L 136-145 POTASSIUM (test code=K) 5.6 mmol/L 3.5-5.1 RESULT VERIFIED BY REPEAT ANALYSIS CHLORIDE (test code=CL) 98.0 mmol/L 98-107 CARBON DIOXIDE (test code=CO2) 14.0 mmol/L 21-32 ANION GAP (test code=GAP) 28.6 10-20 GLUCOSE (test code=GLU) 176 mg/dL 74-106 BLOOD UREA NITROGEN (test code=BUN) 105 mg/dL 7-18 GLOMERULAR FILTRATION RATE (test code=GFR) 7 mL/min >=60 Estimated GFR by using Modified MDRD formula.Chronic kidney disease is defined as either kidney damageor GFR <60 mL/min/1.73 m2 for >3 months. CREATININE (test code=CREAT) 7.40 mg/dL 0.7-1.3 BUN/CREATININE RATIO (test code=BUN/CREA) 14.2 10-20 TOTAL PROTEIN (test code=PROT) 5.8 gram/dL 6.4-8.2 ALBUMIN (test code=ALB) 3.4 g/dL 3.4-5.0 GLOBULIN (test code=GLOB) 2.4 gram/dL 2.7-4.2 ALBUMIN/GLOBULIN RATIO (test code=A/G) 1.4 0.75-1.50 CALCIUM (test code=CA) 7.9 mg/dL 8.5-10.1 BILIRUBIN TOTAL (test code=BILT) 2.90 mg/dL 0.0-1.0 SGOT/AST (test code=AST) 4269 IUnit/L 15-37 SGPT/ALT (test code=ALT) 2019 IUnit/L 12-78 ALKALINE PHOSPHATASE TOTAL (test code=ALKP) 92 IUnit/L 45-117 Note change in reference range due to change in reagent. LIPID PROFILE (CORONARY RISK)2019-07-06 19:39:00* Test Item Value Reference Range Comments TRIGLYCERIDES (test code=TRIG) 98 mg/dL 20-150 CHOLESTEROL (test code=CHOL) 168 mg/dL 0-200 CHOLESTEROL/HDL RATIO (test code=CHOLHDL) 4.0 RATIO 0-4.9 RISK ASSOCIATED WITH CHOL/HDL RATIOS: Risk Male Female1/2 AVERAGE 3.43 3.27AVERAGE 4.97 4.442X AVERAGE 9.55 7.053X AVERAGE 23.39 11.04 REFERENCE VALUE IS RELATED TO RISK LEVELS ASRECOMMENDED BY THE HASEEB. HEART, LUNG, AND BLOOD INST. HDL CHOLESTEROL (test code=HDL) 38 mg/dL 40-60 LIPOPROTEIN LDL (test code=LDL) 121 mg/dL 100-129 RN PERSONNEL, CONTACT PHYSICIAN IMMEDIATELY IF THIS IS A STROKE, AMI OR CAROTID STENOSIS PATIENT WHEN THE LDL >100 (1ST OCCURENCE, THIS ADMISSION) Reference Interval: mg/dL mmol/L Optimal <100 <2.6Near/above optimal 100-129 2.6- 3.3Borderline High 130-159 3.4-4.1High 160-189 4.1-4.9Very High >=190 >=4.9=========This LDL result is a direct measurement.========= CREATINE KINASE (CK)2019-07-06 19:39:00* Test Item Value Reference Range Comments CREATINE KINASE (CK) (test code=CK) 318 IUnit/L 26-208 [id number] 19:39:00* Test Item Value Reference Range Comments TROPONIN-I (test code=TROPI) 7.240 ng/mL 0-0.045 COMPREHENSIVE METABOLIC [id number] 19:27:00* Test Item Value Reference Range Comments SODIUM (test code=NA) 135 mmol/L 136-145 POTASSIUM (test code=K) 5.6 mmol/L 3.5-5.1 RESULT VERIFIED BY REPEAT ANALYSIS CHLORIDE (test code=CL) 98.0 mmol/L 98-107 CARBON DIOXIDE (test code=CO2) mmol/L 21-32 ANION GAP (test code=GAP) 10-20 GLUCOSE (test code=GLU) mg/dL 74-106 BLOOD UREA NITROGEN (test code=BUN) mg/dL 7-18 GLOMERULAR FILTRATION RATE (test code=GFR) mL/min >=60 CREATININE (test code=CREAT) mg/dL 0.7-1.3 BUN/CREATININE RATIO (test code=BUN/CREA) 10-20 TOTAL PROTEIN (test code=PROT) gram/dL 6.4-8.2 ALBUMIN (test code=ALB) g/dL 3.4-5.0 GLOBULIN (test code=GLOB) gram/dL 2.7-4.2 ALBUMIN/GLOBULIN RATIO (test code=A/G) 0.75-1.50 CALCIUM (test code=CA) mg/dL 8.5-10.1 BILIRUBIN TOTAL (test code=BILT) mg/dL 0.0-1.0 SGOT/AST (test code=AST) IUnit/L 15-37 SGPT/ALT (test code=ALT) IUnit/L 12-78 ALKALINE PHOSPHATASE TOTAL (test code=ALKP) IUnit/L 45-117 LIPID PROFILE (CORONARY RISK)2019-07-06 19:27:00* Test Item Value Reference Range Comments TRIGLYCERIDES (test code=TRIG) mg/dL 20-150 CHOLESTEROL (test code=CHOL) mg/dL 0-200 CHOLESTEROL/HDL RATIO (test code=CHOLHDL) RATIO 0-4.9 HDL CHOLESTEROL (test code=HDL) mg/dL 40-60 LIPOPROTEIN LDL (test code=LDL) mg/dL 100-129 CREATINE KINASE (CK)2019-07-06 19:27:00* Test Item Value Reference Range Comments CREATINE KINASE (CK) (test code=CK) IUnit/L 26-208 [id number] 19:27:00* Test Item Value Reference Range Comments TROPONIN-I (test code=TROPI) ng/mL 0-0.045 AG HEPAT B [id number] 19:26:00* Test Item Value Reference Range Comments AG HEPAT B SURF (test code=HBSAG) Nonreactive Index Nonreactive COMPREHENSIVE METABOLIC [id number] 19:17:00* Test Item Value Reference Range Comments SODIUM (test code=NA) 135 mmol/L 136-145 POTASSIUM (test code=K) 5.6 mmol/L 3.5-5.1 CHLORIDE (test code=CL) 98.0 mmol/L 98-107 CARBON DIOXIDE (test code=CO2) mmol/L 21-32 ANION GAP (test code=GAP) 10-20 GLUCOSE (test code=GLU) mg/dL 74-106 BLOOD UREA NITROGEN (test code=BUN) mg/dL 7-18 GLOMERULAR FILTRATION RATE (test code=GFR) mL/min >=60 CREATININE (test code=CREAT) mg/dL 0.7-1.3 BUN/CREATININE RATIO (test code=BUN/CREA) 10-20 TOTAL PROTEIN (test code=PROT) gram/dL 6.4-8.2 ALBUMIN (test code=ALB) g/dL 3.4-5.0 GLOBULIN (test code=GLOB) gram/dL 2.7-4.2 ALBUMIN/GLOBULIN RATIO (test code=A/G) 0.75-1.50 CALCIUM (test code=CA) mg/dL 8.5-10.1 BILIRUBIN TOTAL (test code=BILT) mg/dL 0.0-1.0 SGOT/AST (test code=AST) IUnit/L 15-37 SGPT/ALT (test code=ALT) IUnit/L 12-78 ALKALINE PHOSPHATASE TOTAL (test code=ALKP) IUnit/L 45-117 LIPID PROFILE (CORONARY RISK)2019-07-06 19:17:00* Test Item Value Reference Range Comments TRIGLYCERIDES (test code=TRIG) mg/dL 20-150 CHOLESTEROL (test code=CHOL) mg/dL 0-200 CHOLESTEROL/HDL RATIO (test code=CHOLHDL) RATIO 0-4.9 HDL CHOLESTEROL (test code=HDL) mg/dL 40-60 LIPOPROTEIN LDL (test code=LDL) mg/dL 100-129 CREATINE KINASE (CK)2019-07-06 19:17:00* Test Item Value Reference Range Comments CREATINE KINASE (CK) (test code=CK) IUnit/L 26-208 [id number] 19:17:00* Test Item Value Reference Range Comments TROPONIN-I (test code=TROPI) ng/mL 0-0.045 [id number] 19:03:00* Test Item Value Reference Range Comments HEMATOCRIT (test code=HCT) 34.1 % 42.0-52.0 PLATELET [id number] 19:03:00* Test Item Value Reference Range Comments PLATELET COUNT (test code=PLT) 156 K/mm3 150-450 - XR CHEST 1 [id number] 17:16:00 FAX: Shonda Gonzalez Si [phone] [place]: B St: ADM FAX: Myesha Henderson MD [phone] Name: TRACY DIAZ [facility] : 1950 Age/S: 69/M [address] [facility] Unit #: [id number] Loc: [place] [address] Phys: Mason Pradhan MD Acct: [id number] Dis Date: Status: ADM IN PHONE #: [phone] Exam Date: 07/06/2019 1700 FAX #: [phone] Reason: S/P LINE PLACEMENT EXAMS: CPT CODE: [id number] XR CHEST 1 V 69786 HISTORY: Line placement. COMPARISON: Same day. Location: TH. Right jugular catheter with the tip projected over the SVC. No pneumothorax. No acute infiltrates, effusion or congestion. Cardiomegaly. IMPRESSION: No pneumothorax after right jugular catheter placement with the tip projected over the SVC. at 1716 Reported and signed by: Nikhil Almonte M.D. CC: Abigail Gonzalez MD; Myesha Henderson MD Technologist: JEN RODRIGUEZ; Romero Silva, RT(R Trnscrd Date/Time/By: 07/06/2019 (1716) : By: [email or web address] Orig Print D/T: S: (1720) PAGE 1 Signed Rep ort BASIC METABOLIC [id number] 14:13:00* Test Item Value Reference Range Comments SODIUM (test code=NA) 132 mmol/L 136-145 POTASSIUM (test code=K) 7.4 mmol/L 3.5-5.[address] OSORIO by V.LAB.KA 07/06/19 1412Critical results verified and read back by Nurse? Y CHLORIDE (test code=CL) 96.0 mmol/L 98-107 CARBON DIOXIDE (test code=CO2) 12.0 mmol/L 21-32 ANION GAP (test code=GAP) 31.4 10-20 GLUCOSE (test code=GLU) 222 mg/dL 74-106 BLOOD UREA NITROGEN (test code=BUN) 102 mg/dL 7-18 GLOMERULAR FILTRATION RATE (test code=GFR) 8 mL/min >=60 Estimated GFR by using Modified MDRD formula.Chronic kidney disease is defined as either kidney damageor GFR <60 mL/min/1.73 m2 for >3 months. CREATININE (test code=CREAT) 7.10 mg/dL 0.7-1.3 BUN/CREATININE RATIO (test code=BUN/CREA) 14.4 10-20 CALCIUM (test code=CA) 8.9 mg/dL 8.5-10.1 [id number] 14:13:00* Test Item Value Reference Range Comments TROPONIN-I (test code=TROPI) 3.140 ng/mL 0-0.[address] OSORIO by V.LAB.KA 07/06/19 1413Critical results verified and read back by Nurse? Y PROTHROMBIN [id number] 14:06:00* Test Item Value Reference Range Comments PROTHROMBIN TIME PATIENT (test code=PTP) 21.8 seconds 9.0-14.0 INTERNATIONAL NORMAL RATIO (test code=INR) 1.8 0.8-1.2 The therapeutic range for oral anticoagulant therapy formost indications is an international normalized ratio (INR)of between 2.0 and 3.0. The recommended therapeutic INRrange for various clinical situations is listed below: Clinical Situation INR range Pulmonary e mbolism treatment (2.0-3.0)Venous thrombosis treatmentVenous thrombosis prophylaxis (high risk surgery)Prevention of systemic embolism from: Acute myocardial infarction Valvular heart disease Atrial fibrillation Mechanical prosthetic heart valves (2.5-3.5) IS PATIENT ON ANTICOAGULANTS? NTHROMBOPLASTIN TIME [id number] 14:06:00* Test Item Value Reference Range Comments THROMBOPLASTIN TIME PARTIAL (test code=PTT) 30.3 seconds 25.0-36.5 IS PATIENT ON ANTICOAGULANTS? NCBC W/O [id number] 14:06:00* Test Item Value Reference Range Comments WHITE BLOOD CELL (test code=WBC) 16.3 K/mm3 4.5-12.5 RED BLOOD CELL (test code=RBC) 4.87 mill/mm3 4.0-5.8 HEMOGLOBIN (test code=HGB) 12.1 gram/dL 13.0-17.5 HEMATOCRIT (test code=HCT) 40.1 % 42.0-52.0 MEAN CELL VOLUME (test code=MCV) 82.3 fL 80-98 MEAN CELL HGB (test code=MCH) 24.8 picogram 27.0-33.0 MEAN CELL HGB CONCETRATION (test code=MCHC) 30.2 gram/dL 33.0-36.0 RED CELL DISTRIBUTION WIDTH (test code=RDW) 15.3 % 11.6-16.2 PLATELET COUNT (test code=PLT) 196 K/mm3 150-450 MEAN PLATELET VOLUME (test code=MPV) 12.4 fL 6.7-11.0 - XR CHEST 1 [id number] 13:38:00 FAX: Alfredo Osorio MD [phone] [place]: St: PRE FAX: Shonda Gonzalez, Name: TRACY DIAZ [facility] : 1950 Age/S: 69/M [address] [facility] Unit #: [id number] Loc: [place] [address] Phys: Alfredo Osorio MD Acct: [id number] Dis Date: Status: PRE ER PHONE #: [phone] Exam Date: 07/06/2019 1325 FAX #: [phone] Reason: CHEST PAIN EXAMS: CPT CODE: [id number] XR CHEST 1 V 29596 REASON FOR EXAM: CHEST PAIN EXAM ORDER DATE: 07/06/2019 1:19 PM Ordering: Alfredo Osorio MD Attending:Alfredo Osorio MD Location:[facility] PROCEDURE: - XR CHEST 1 V COMPARISON: FINDINGS: Portable AP frontal view of the chest obtained at 1:28 PM shows clear lungs without evidence of consolidation. There is no evidence of effusion. The heart size is minimally enlarged. Pulmonary vasculatures are minimally congested. IMPRESSION: Minimal cardiomegaly, pulmonary venous congestion and atelectasis of the left base at 5567 Reported and signed by: Calvin Harris M.D. CC: Alfredo Osorio MD; Abigail Gonzalez MD Technologist: LINDA RIVER RT(R) Trnscrd Date/Time/By: 07/06/2019 (0326) : By: RichL Orig Print D/T: S: 07/06/2019 (0958) PAGE 1 Signed Report
[2019-08-07 12:39] LABS: BASOPHILS % 0.1 % (0.0-1.0); EOSINOPHILS # (AUTO) 0.1 (0.0-0.4); EOSINOPHILS % 0.8 % (0.0-6.0); HEMATOCRIT 39.2 % (38.2-49.6); HEMOGLOBIN 11.9 g/dL (14.0-18.0); LYMPHOCYTES # (AUTO) 1.1 (1.0-3.2); MEAN CORPUSCULAR HEMOGLOBIN 25.2 pg (28-32); MEAN CORPUSCULAR HGB CONC 30.4 g/dL (31-35); MEAN CORPUSCULAR VOLUME 83.1 fL (81-99); MONOCYTES # (AUTO) 0.6 (0.2-0.8); MONOCYTES % 8.1 % (4.4-11.3); NEUTROPHILS # (AUTO) 5.5 (2.1-6.9); PLATELET COUNT 189 x10e3/uL (140-360); RED BLOOD COUNT 4.72 x10e6/uL (4.3-5.7); RED CELL DISTRIBUTION WIDTH 18.5 % (11.7-14.4)
[2019-08-07] MEDS ORDERED: AMIODARONE HCL 900 MG in DEXTROSE 5% 500ML 500 ML IV STA (12:39)
[2019-08-07] MEDS ORDERED: CEFEPIME HCL 1 GM VIAL IV SCH (12:45)
[2019-08-07] MEDS ORDERED: AMIODARONE HCL 150 MG/100 ML BAG IV ONE (12:45)
[2019-08-07] MEDS ORDERED: AMIODARONE HCL 150MG 100 ML ONE (12:49)
[2019-08-07 12:58] LABS: ALBUMIN 3.3 g/dL (3.5-5.0); ALBUMIN/GLOBULIN RATIO 1.3 (0.8-2.0); CREATININE, SERUM 2.93 mg/dL (0.72-1.25)
[2019-08-07] MEDS ORDERED: CEFEPIME 1GM/NS 0.9% 50 ML 50 ML IV ONE (13:00)
[2019-08-07 13:05] LABS: CREATINE KINASE MB 11.3 ng/mL (0-5.0)
--- NOTE | 2019-08-07 13:45 | Diagnostic Imaging Report ---
EXAMINATION: CHEST SINGLE (PORTABLE) INDICATION: Shortness of breath COMPARISON: None FINDINGS: LINES/TUBES:EKG leads overlie the chest. LUNGS:The lungs are moderately inflated. There is perihilar fullness and indistinctness of the pulmonary vasculature. PLEURA:No pleural effusion or pneumothorax. MEDIASTINUM:Cardiomediastinal silhouette is enlarged. BONES/SOFT TISSUES:No acute osseous injury. ABDOMEN:No free air under the diaphragm. IMPRESSION: Cardiomegaly and mild pulmonary interstitial edema. Signed by: Radha Rose MD on 08/07/2019 1:42 PM
[2019-08-07] MEDS ORDERED: ROCURONIUM BROMIDE 1 ML IV ONE (13:52)
--- NOTE | 2019-08-07 14:07 | NUR ---
MOVED TO RM 1 TO PREPARE FOR INTUBATION
--- NOTE | 2019-08-07 14:07 | NUR ---
BP 58/30/HR 146/R.R. 30 SATS 78%
--- NOTE | 2019-08-07 14:13 | NUR ---
24 AT THE LIP/8.ET TUBE
--- NOTE | 2019-08-07 14:16 | NUR ---
BP 44/28 /HR 155 R.R. 20
--- NOTE | 2019-08-07 14:17 | NUR ---
PLACED ON PADS AND SHOCKED 1
--- NOTE | 2019-08-07 14:19 | NUR ---
BP 66/42/HR 75/SATS 97% VENT/R.R. 19
--- NOTE | 2019-08-07 14:20 | NUR ---
HR 79 /SATS 97% VENT/R.R. 16
[2019-08-07] MEDS ORDERED: NOREPINEPHRINE 8 MG/D5W 250 ML 250 ML ONE (14:29)
--- NOTE | 2019-08-07 14:31 | NUR ---
MIKKI. BP 64/49/HR 75 R.R. 15
--- NOTE | 2019-08-07 14:43 | NUR ---
BP 62/44/HR 68/SATS 100% VENT/R.R. 15 NOREPINEPHRINE STARTDEDAT 11MCG
[2019-08-07 14:44] LABS: ABG PH 7.22 (7.35-7.45)
[2019-08-07 14:45] LABS: ABG HCO3 11 mmol/L (22-26); ABG PCO2 28 mmHg (35-45)
--- NOTE | 2019-08-07 14:52 | NUR ---
BP 65/51/HR 71/R.R. 15/SATS 100% VENT
--- NOTE | 2019-08-07 14:53 | NUR ---
80/58/ HR 68/ SATS 100% VENT /R.R.15
--- NOTE | 2019-08-07 15:36 | Diagnostic Imaging Report ---
EXAMINATION: CHEST XRAY LINE PLACEMENT INDICATION: Intubation COMPARISON: Chest radiograph of earlier the same day FINDINGS: LINES/TUBES:Endotracheal tube terminates 4.7 cm above the luis. Left IJ central venous catheter terminates near the confluence of innominate veins. EKG leads overlie the chest. LUNGS:Lung volumes remain low. Central pulmonary vascular congestion. Mild left basilar patchy opacities. PLEURA:No pleural effusion or pneumothorax. MEDIASTINUM:Cardiomediastinal silhouette is stably enlarged. Atherosclerotic calcifications of the thoracic aorta. BONES/SOFT TISSUES:No acute osseous injury. ABDOMEN:No free air under the diaphragm. IMPRESSION: Interval intubation. Left IJ central venous catheter terminates at the confluence of innominate veins. Unchanged cardiomegaly and central pulmonary vascular congestion. Mild left basilar patchy opacity, most likely subsegmental atelectasis. Signed by: Radha Rose MD on 08/07/2019 3:33 PM
[2019-08-07] MEDS: MIDAZOLAM HCL 25 MG in SODIUM CHLORIDE 0.9% 50ML 45 ML IV PRN (16:00)
[2019-08-07] MEDS: FENTANYL CITRATE INJ 2,000 MCG in SODIUM CHLORIDE 0.9% 250ML 210 ML IV SCH ×2 (16:21→16:49)
[2019-08-07] MEDS ORDERED: NOREPINEPHRINE INJ 4MG/4ML 8 MG in DEXTROSE 5% 250ML 250 ML IV SCH (17:45)
[2019-08-07 19:30] VITALS: BP 113/76
[2019-08-07 20:00] VITALS: BP 104/67
--- NOTE | 2019-08-07 20:09 | Consultation ---
DATE OF CONSULTATION: 08/07/2019 REASON FOR CONSULTATION: Atrial fibrillation with rapid ventricular response. CHIEF COMPLAINT: Shortness of breath, fatigue. HISTORY OF PRESENT ILLNESS: This is a 69-year-old man, well known to clinic with history of mental slowing, hypertension, hypercholesterolemia, CAD status post PCI of circumflex, LAD, OM most recent in August 2017; diabetes, COPD, former smoker, who presents to the [facility] in the ER with shortness of breath and fatigue for the past several days. Of note, the patient had a telemedicine visit in office July 2015, was advised to go to the ER given his shortness of breath, fatigue-type symptoms, and however, the patient did not go to the ER until today. In fact his brother, Tahir, called the office, stating that he is being transported to the ER for his worsening shortness of breath, fatigue symptoms. Cardiology was consulted given the patient's atrial fibrillation with RVR. The patient was seen in the ER with shortness of breath, must be intubated, also hypotensive, and it was decided after intubation to cardiovert patient and which he was cardioverted x1 and successfully into sinus rhythm. PAST MEDICAL HISTORY: Recent acute kidney injury, requiring HD therapy 06/2019. Left heart catheterization, in September 12, 2017 with PCI to LAD in 12/2016, PCI to OM and circumflex. Carotid disease with right ICA 57% blockage on carotid Doppler in November 2018. Hypertension, diabetes, hyperlipidemia, asthma . PAST SURGICAL HISTORY: Bilateral cataract surgery, and PCI x3. FAMILY HISTORY: Mother at age 84, history of COPD, diabetes, hypertension. Father at age 42, multiple vehicle accident. SOCIAL HISTORY: He is single. He is a former smoker. 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 He lives alone, however, with caregiver. ALLERGIES: NO KNOWN ALLERGIES. REVIEW OF SYSTEMS: Unable to obtain. The patient is being intubated, short of breath, unable to get information. PHYSICAL EXAMINATION: GENERAL: In respiratory distress, shortness of breath. VITAL SIGNS: Height 67 inches, weight 180 pounds, temperature 97, pulse 144, respiratory rate 30, blood pressure is 71/58, and pulse ox 90, on facemask. SKIN: No rashes or bruises noted. HEENT: Normocephalic. Pupils are equal and reactive. Extraocular movements intact. Trachea midline. Oral mucosa pink. Positive JVD. HEART: Regular rhythm. Tachycardic. LUNGS: Bilateral breath sounds with crackles. ABDOMEN: Soft, nontender, and nondistended. No organomegaly noted. MUSCULOSKELETAL: Generalized muscle weakness. Positive lower extremity swelling, +2. VASCULAR: +1 DP and PT pulses bilaterally and +1 radial pulses. NEUROLOGIC: Unable to assess. LABORATORY DATA: White count 7, hemoglobin 11, hematocrit 39, and platelets 189. Sodium 134, potassium 5, chloride 102, bicarb 16, BUN 56, creatinine 2.9, glucose 202, AST 23, ALT is 47, alkaline phosphatase 226, total bilirubin 1.8. Chest x-ray showing pulmonary edema. EKG atrial fibrillation with rapid ventricular response. Heart rate in 150s. ASSESSMENT: 1. Atrial fibrillation with rapid ventricular response. 2. Acute respiratory failure. 3. Acute systolic heart failure. 4. Hypotensive. 5. Acute kidney injury. PLAN: 1. The patient presents to [facility] ER with complaints of shortness of breath, malaise, was recently advised to go to the ER, shows up in the ER today with the above symptoms and noted to be hypotensive, acute respiratory failure, atrial fibrillation with rapid ventricular response. Subsequently, it was decided to emergently cardiovert patient, and which he was cardioverted with 200 joules x1, successfully into sinus rhythm. 2. We will continue amiodarone therapy for rhythm stabilization. 3. Vasopressor therapy is for blood pressure optimization. 4. ICU admission for further close monitoring and vent management. 5. We will get an echo to evaluate heart function and structure. 6. We will continue to monitor and evaluate the patient and further recommendations as course progresses. Thank you very much for this consult. Seen and evaluated by our team Agree with above note Emergency cardioversion done by our team in ER Patient seen in ER and evaluated later Total ICU time is > 2 hours Dictated by Antonio Fitzgerald NP Harjinder Tanner MD DC/DANA /[id number]
[2019-08-07 21:00] VITALS: BP 110/72
[2019-08-07] MEDS ORDERED: SODIUM CHLORIDE 0.9% 1000ML 1,000 ML IV SCH (21:45)
[2019-08-07 22:00] VITALS: BP 117/76
[2019-08-07] MEDS ORDERED: METHYLPREDNISOLONE SOD SUCC 40 MG/ML VIAL 1ML IV ONE (22:00)
[2019-08-07] MEDS ORDERED: MEROPENEM 500MG/ NS 50ML 50 ML IV SCH (22:00)
[2019-08-07 23:00] VITALS: BP 119/99
[2019-08-07] MEDS ORDERED: VANCOMYCIN 1GM/NS 250 ML 250 ML IV ONE (23:00)
[2019-08-07] MEDS ORDERED: SODIUM CHLORIDE 0.9% 1000ML 1,000 ML IV ONE (23:45)
[2019-08-08] VITALS (22 sets, daily range): BP systolic 85–137; BP diastolic 54–82
[2019-08-08 01:19] LABS: CLARITY,URINE CLOUDY (CLEAR); COLOR,URINE AMBER (YELLOW)
[2019-08-08 01:20] LABS: BILIRUBIN,URINE MODERATE (NEGATIVE); KETONES,URINE TRACE (NEGATIVE); LEUKOCYTE ESTERASE ,URINE NEGATIVE (NEGATIVE); NITRITE,URINE NEGATIVE (NEGATIVE); PROTEIN,URINE DIPSTICK >=300 (NEGATIVE); RBC,URINE >50 /HPF (0-5); URINE UROBILINOGEN 1 mg/dL (0.2 - 1); WBC,URINE (MAN) 21-50 /HPF (0-5)
[2019-08-08 01:21] LABS: BACTERIA,URINE MANY /HPF; EPITHELIAL CELLS,URINE MANY /LPF
--- NOTE | 2019-08-08 01:34 | Consultation ---
DATE OF CONSULTATION: 08/07/2019 Pulmonary Medicine Consult REASON FOR REFERRAL: Multiorgan dysfunction. HISTORY OF PRESENT ILLNESS: Mr. Brewer is a pleasant 69-year-old gentleman with multiorgan dysfunction. The patient was with shortness of breath outside the hospital. There was also some fatigue. He was closely followed by his senior loan processor over the recent past. The patient did not go to the emergency room until today. The patient's initial vital signs included 44/28 blood pressure with heart rate 155. He had atrial fibrillation with RVR. He was intubated and cardioverted back to sinus rhythm. After this instability, he remained hypotensive. Currently, he is on Levophed 11 mcg/minute. The patient remains intubated. Chest x-ray suggests mild pulmonary interstitial edema. I am consulted. Among labs noted. Creatinine is 2.9 with bicarbonate of 16. The patient with BNP 1044 and alkaline phosphatase 226. Chest x-ray with mild pulmonary edema noted. PAST MEDICAL HISTORY: Mental delay, history of transient dialysis in June 2019, August 2017, heart catheterization with PCI to LAD, peripheral vascular disease with right ICA 57% ultrasonographic blockage in November 2018, hypertension, diabetes, hyperlipidemia, asthma, bilateral cataract surgery, PCI x3. MEDICINES: Medicine list reviewed per electronic record. However, medicine list is not deemed complete at this time due to emergent situation. ALLERGIES: NO KNOWN DRUG ALLERGIES. FAMILY HISTORY: Noncontributory to this syndrome. SOCIAL HISTORY: The patient is single. Reportedly former smoker. He lives alone with caregiver. No alcohol. No drugs known. REVIEW OF SYSTEMS: Cannot get, as he is intubated. PHYSICAL EXAMINATION: VITAL SIGNS: Afebrile, vital signs more stable now with heart rate in the 80s. He remains on pressors with blood pressure in 90s. Other vitals per record. GENERAL: Intubated, sedated. HEENT: Normocephalic and atraumatic. NECK: Supple. Throat midline. LUNGS: Bilateral air entry is limited, decreased breath sounds. CARDIOVASCULAR: S1 and S2. No murmurs, rubs, or gallops. ABDOMEN: Soft and nontender. EXTREMITIES: No clubbing. No cyanosis. There is only trace edema. INTEGUMENT: No rash. No purpura. LABORATORY DATA: 5.0 potassium. 7.3 white count, 39 hematocrit, 189 platelets. Alkaline phosphate 226. Other LFTs noted, include 1.8 total bilirubin. IMPRESSION AND PLAN: 1. Acute respiratory failure, intubated. 2. Shock, treat for distributive shock, rule out cardiac. 3. Acute kidney failure. 4. Atrial fibrillation with rapid ventricular rate, status post cardioversion. 5. Abnormal chest radiography, fluid overload component. BNP 1000. 6. Abnormal chest radiography, treat for pneumonia. 7. Elevated alkaline phosphatase and elevated total bilirubin. 8. Metabolic acidosis. 9. History of known coronary artery disease, status post three PCI in the past. 10. Peripheral vascular disease. 11. Hypertension. 12. Diabetes. 13. Hyperlipidemia. 14. Reported asthma. 15. History of mental delay. Give some more bolus IV fluid and re-evaluate for stability afterwards. Follow up vitals and urine output very closely to ensure adequate resuscitation. Recheck status of acid-base and even oxygen. Wean oxygen down as he remains on 100% oxygen at this time. Ultrasound liver will be ordered. Repeat chest x-ray tomorrow to ensure and to assess for any evolution. Check coags and follow up LFT trend. Cardiac enzymes given some risk of acute coronary syndrome. Continue rate control as per Cardiology. We will give at least one dose of steroids given history of asthma, but it is unclear if there is any significant steroid responsive component. He is very critically ill. I will continue to follow up closely. Antibiotics in the interim. Thank you very much, Dr. Acevedo, for allowing me a chance to participate in the care of Mr. Brewer. Please call for questions. Greater than 30 minutes in direct care here in coordination. Alex Flores MD GMAnn-Marie/MODL /[id number]
[2019-08-08] MEDS ORDERED: SODIUM CHLORIDE 0.9% 1000ML 1,000 ML IV ONE ×4 (02:30→03:45)
[2019-08-08] MEDS ORDERED: FUROSEMIDE INJ 10 MG/ML 4 ML VIAL IV ONE (02:30)
[2019-08-08] MEDS: NOREPINEPHRINE 8 MG/D5W 250 ML 250 ML IV SCH ×2 (02:32→14:44)
[2019-08-08 05:21] LABS: BASOPHILS % 0.1 % (0.0-1.0); HEMATOCRIT 39.1 % (38.2-49.6); HEMOGLOBIN 12.2 g/dL (14.0-18.0); LYMPHOCYTES # (AUTO) 0.3 (1.0-3.2); LYMPHOCYTES % 4.3 % (18.0-39.1); MEAN CORPUSCULAR HEMOGLOBIN 25.4 pg (28-32); MEAN CORPUSCULAR HGB CONC 31.2 g/dL (31-35); MEAN CORPUSCULAR VOLUME 81.5 fL (81-99); MONOCYTES # (AUTO) 0.1 (0.2-0.8); MONOCYTES % 1.8 % (4.4-11.3); NEUTROPHILS # (AUTO) 7.3 (2.1-6.9); NEUTROPHILS % 92.4 % (38.7-80.0); PLATELET COUNT 163 x10e3/uL (140-360); RED CELL DISTRIBUTION WIDTH 18.5 % (11.7-14.4)
[2019-08-08 05:36] LABS: INR 1.35; PROTHROMBIN TIME 17.6 seconds (11.9-14.5)
[2019-08-08 05:37] LABS: PARTIAL THROMBOPLASTIN TIME 30.3 seconds (23.8-35.5)
[2019-08-08 05:44] LABS: ALBUMIN/GLOBULIN RATIO 1.4 (0.8-2.0); ANION GAP 19.9 mmol/L (8-16); CALCIUM 8.2 mg/dL (8.4-10.2); CREATININE, SERUM 3.14 mg/dL (0.72-1.25); POTASSIUM 4.9 mmol/L (3.5-5.1)
[2019-08-08 05:57] LABS: MAGNESIUM 1.8 MG/DL (1.3-2.1); PHOSPHORUS 5.2 MG/DL (2.3-4.7)
[2019-08-08 06:04] LABS: THYROID STIMULATING HORMONE 1.596 uIU/mL (0.350-4.940)
--- NOTE | 2019-08-08 07:27 | Diagnostic Imaging Report ---
EXAMINATION: CHEST SINGLE (PORTABLE) INDICATION: CHF. COMPARISON: Chest radiograph 08/07/2019. FINDINGS: LINES/TUBES:Endotracheal tube terminates 5.9 cm above the luis. Left IJ central venous catheter terminates at the distal left brachiocephalic vein. Enteric tube terminates in the stomach, the side port is near the GE junction. EKG leads overlie the chest. LUNGS/PLEURA:Low lung volumes. Central vascular congestion. Mild perihilar and interstitial opacities. Patchy bibasilar opacities. Trace bilateral pleural effusions. No pneumothorax. MEDIASTINUM:Cardiomediastinal silhouette is stably enlarged. Atherosclerotic calcifications of the thoracic aorta. BONES/SOFT TISSUES:No acute osseous abnormality. ABDOMEN:No free air under the diaphragm. IMPRESSION: Lines and tubes as above. Enteric tube terminates in the stomach, the side port is near the GE junction. Suggest advancement. Unchanged cardiomegaly and central vascular congestion. Trace left pleural effusion with bibasilar opacities, likely atelectasis. Signed by: Dr. Jordan Dutta MD on 08/08/2019 7:23 AM
[2019-08-08] MEDS: MIDAZOLAM HCL 25 MG in SODIUM CHLORIDE 0.9% 50ML 45 ML IV PRN ×2 (08:50→17:35)
[2019-08-08] MEDS ORDERED: ACETAMINOPHEN 1000 MG/100 ML IV PRN (10:45)
[2019-08-08] MEDS ORDERED: FAMOTIDINE 20 MG/2 ML VIAL IV SCH (10:45)
[2019-08-08] MEDS ORDERED: GLIMEPIRIDE4 MG (10:52)
[2019-08-08] MEDS ORDERED: METOPROLOL SUCC50 MG PO (10:52)
[2019-08-08] MEDS ORDERED: PLAVIX75 MG PO (10:52)
[2019-08-08] MEDS ORDERED: LISINOPRIL2.5 MG PO (10:53)
[2019-08-08] MEDS ORDERED: PANTOPRAZOLE SO40 MG PO (10:53)
[2019-08-08] MEDS ORDERED: FUROSEMIDE40 MG PO (10:53)
[2019-08-08] MEDS ORDERED: ALBUTEROL0.63 MG/3 (10:53)
[2019-08-08] MEDS ORDERED: JANUVIA50 MG (10:53)
--- NOTE | 2019-08-08 11:06 | History and Physical ---
PRIMARY CARE PHYSICIAN: Dr. Abigail Gonzalez. CONSULTANTS: 1. Dr. Alex Flores. 2. Dr. Harjinder Tanner. CHIEF COMPLAINT: Respiratory failure, intubation, and ventilator support. HISTORY OF PRESENT ILLNESS: This is a 69-year-old male with known coronary artery disease with previous stents, known congestive heart failure, came into the hospital with increasing shortness of breath and subsequently intubated. The patient in ICU, on ventilator support. There was no fever. No leukocytosis. The patient on ventilator oral tube in place. The patient found to have congestive heart failure and multiorgan failure. His liver enzymes elevated. Systolic blood pressure in the 50 on ER admission. His heart rate was in the 160. The patient is on ventilator support now. He is on meropenem for empiric treatment for possible sepsis with shock. No sources as yet. The patient remained critically stable in the ICU. PAST MEDICAL HISTORY: Including mental delay. History of chronic kidney disease. Coronary artery disease with previous PCI to LAD. Peripheral vascular disease. Carotid disease. No previous intervention. Hypertension. Diabetes type 2. Dyslipidemia. History of asthma. Cataract with previous cataract surgery. Systolic congestive heart failure. Cardiomyopathy. PAST SURGICAL HISTORY: PCI stents. SOCIAL HISTORY: Not known. ALLERGIES: NO KNOWN ALLERGIES. HOME MEDICATION: Not available. PHYSICAL EXAMINATION: VITAL SIGNS: Temperature is 98, blood pressure in the ER visit was 92/77, after IV fluid bolus. Heart rate is 155, respirations 22. The patient remained on ventilator support. Assist-control. GENERAL: The patient is sedated for comfort. HEENT: Normocephalic and atraumatic. Anicteric. NECK: There is no gross JVD. No swelling. PULMONARY: Diminished breath sounds bilaterally with coarses. Ventilator support. CARDIOVASCULAR: Atrial fibrillation. Heart rate in the 130 to 150. ABDOMEN: Soft. Oral tube in place. Non-distention. Positive bowel sounds. EXTREMITIES: Bilateral upper and lower extremity edema. NEUROLOGIC: Sedation on ventilator support. LABORATORY DATA: Sodium is 134, potassium 5, chloride 102, bicarb 16, BUN is 56, creatinine 2.9, glucose 202. AST 284, ALT 261, alkaline phosphatase is 208. Lactate dehydrogenase 689. BNP is 1044, CK-MB 11.3, troponin I 0.2, albumin is 3.3. WBC 7.3, hemoglobin 11.9, hematocrit 39.2, platelets is 189. Urinalysis, greater than 50 rbc, wbc's 21-50, many bacteria with cloudy urine. Specific gravity 1.03. Imaging tests, vascular congestion. IMPRESSION: 1. Respiratory failure, on mechanical ventilator support. This could be multifactorial of which including possible sepsis with shock and rygat-bi-xtrqcmp systolic dysfunction congestive heart failure exacerbation. 2. Respiratory failure. Lzmch-yd-zfqexva systolic dysfunction congestive heart failure exacerbation with vascular congestion. 3. Multiorgan failure due to the above including loezf-de-bwxqajr kidney disease. Increase in liver enzyme with shock liver. 4. Multiple baseline problems. PLAN: Check electrolytes. Antibiotic empirically. Maintain the patient's blood pressure with pressure support. Consultation with Critical Care, Infectious Disease, and Cardiology. Echocardiogram showed ejection fraction of 25%. Continue with treatment for possible urinary tract infection versus pneumonia. There is no fever. The patient continue with management in the ICU. MD LORE Adams/MODL /[id number]
--- NOTE | 2019-08-08 11:38 | Diagnostic Imaging Report ---
EXAM: Right upper quadrant abdominal ultrasound INDICATION: Elevated LFTs, creatinine. COMPARISON: None. TECHNIQUE: Transverse and longitudinal images of the right upper quadrant abdomen were obtained FINDINGS: Liver: Size: 13.6 cm in the right midclavicular line, normal Appearance: Normal echogenicity, smooth contour Mass: No focal masses Gallbladder: Partially decompressed. No distention, pericholecystic fluid, stone, or reported sonographic Caballero's sign. Gallbladder wall measures 0.3 cm. Bile Ducts: Intrahepatic Ducts: No dilatation Extrahepatic Ducts: Common bile duct measures 0.5 cm, no dilatation Pancreas: Not well visualized due to overlying bowel gas. Kidney: The right kidney measures 10.4 cm without evidence of hydronephrosis or stone. Simple appearing cyst in the midpole, measuring up to 3.6 cm. Vessels: Aorta: Visualized portions are normal Inferior Vena Cava: Not well visualized due to overlying bowel gas. Main Portal Vein: 0.9 cm, normal size with hepatopetal flow. Free Fluid: No evidence of ascites. IMPRESSION: No acute sonographic abnormality. Partially decompressed gallbladder with mild wall thickening. No evidence of cholecystitis or cholelithiasis. Signed by: Dr. Jordan Dutta MD on 08/08/2019 11:35 AM
[2019-08-08] MEDS ORDERED: CLOPIDOGREL BISULFATE 75 MG TAB PO NR (11:45)
--- NOTE | 2019-08-08 12:03 | Diagnostic Imaging Report ---
TECHNIQUE: CT of the chest, abdomen and pelvis without intravenous contrast. INDICATION: Respiratory failure. COMPARISON: Chest radiograph 08/08/2019 and abdominal ultrasound 08/08/2019. TECHNIQUE: Chest, Abdomen and pelvis were scanned utilizing a multidetector helical scanner from the thoracic inlet to the pubic symphysis without administration of IV or oral contrast. Coronal and sagittal reformations were obtained. Routine protocol was performed. Lack of intravenous contrast limits sensitivity for evaluation of vascular or visceral structures. COMPLICATIONS: None RADIATION DOSE: Total DLP: 902.9 mGy*cm Dose modulation, iterative reconstruction, and/or weight based adjustment of the mA/kV was utilized to reduce the radiation dose to as low as reasonably achievable. FINDINGS: LINES AND TUBES: Endotracheal tube terminates in the mid trachea. Enteric tube terminates in the stomach. Left IJ central venous catheter terminates in the left brachiocephalic vein. LUNGS AND AIRWAYS/PLEURA: Moderate right greater than left pleural effusions with associated dependent consolidative opacities, likely atelectasis. HEART AND MEDIASTINUM: A 1.2 cm hypodense left thyroid nodule. No significant mediastinal, hilar or axillary lymphadenopathy is seen. Moderate cardiomegaly. Extensive coronary atherosclerosis. Atherosclerotic calcifications of the abdominal aorta and branch vessels. HEPATOBILIARY: Mildly atrophic appearance of the liver. No focal hepatic lesions. No biliary ductal dilatation. SPLEEN: No splenomegaly. PANCREAS: Fatty atrophy. No evidence of mass. ADRENALS: No adrenal nodules. KIDNEYS/URETERS: Bilateral perinephric stranding. Bilateral simple renal cysts. Punctate 3 mm left lower pole nonobstructive renal stone. No evidence of hydronephrosis. PELVIC ORGANS/BLADDER: Orellana catheter terminates in the bladder. PERITONEUM / RETROPERITONEUM: No free air. Small volume ascites. LYMPH NODES: No lymphadenopathy. VESSELS: Moderate atherosclerotic calcifications of the abdominal aorta and branch vessels. GI TRACT: No evidence of bowel obstruction. Fatty infiltration to the wall of ileal loops and throughout the colon. Retained contrast material within the colon. BONES AND SOFT TISSUES: No acute osseous abnormality. Pars defects at L5 without spondylolisthesis. Diffuse anasarca. Small right hydrocele. IMPRESSION: Cardiomegaly with moderate right greater than left pleural effusions with dependent opacities, more likely atelectasis than infection. Small volume ascites and diffuse anasarca. Extensive coronary atherosclerosis. Mildly atrophic appearance of the liver, which may represent early cirrhosis. Suggest clinical correlation. Fatty infiltration into the wall of the ileum and colon, which may represent sequela of prior inflammatory/infectious etiology. Bilateral perinephric stranding is nonspecific, but may represent infectious or inflammatory etiology, such as pyelonephritis. A 1.2 cm left thyroid lobe nodule, for which a thyroid ultrasound may be considered for further evaluation. Signed by: Dr. Jordan Dutta MD on 08/08/2019 12:00 PM
[2019-08-08] MEDS: MEROPENEM 500MG/ NS 50ML 50 ML IV SCH ×2 (12:18→23:00)
[2019-08-08] MEDS: INSULIN LISPRO 100 UNIT/1 ML 3ML VIAL SQ SCH ×4 (12:31→22:18)
[2019-08-08] MEDS ORDERED: AMIODARONE HCL 900 MG in DEXTROSE 5% 500ML 500 ML IV ONE (13:00)
[2019-08-08] MEDS: METOPROLOL TARTRATE INJ 1 MG/ML VIAL IV PRN ×2 (14:41→23:00)
[2019-08-08] MEDS: AMIODARONE HCL 200 MG TAB PO SCH ×2 (14:58→22:17)
[2019-08-08] MEDS: FENTANYL CITRATE INJ 2,000 MCG in SODIUM CHLORIDE 0.9% 250ML 210 ML IV SCH (15:45)
--- NOTE | 2019-08-08 15:47 | NUR ---
consult This is a 69-year-old man, well known to clinic with history of mental slowing, hypertension, hypercholesterolemia, CAD status post PCI of circumflex, LAD, OM most recent in August 2017; diabetes, COPD, former smoker, who presents to the [facility] in the ER with shortness of breath and fatigue for the past several days. Of note, the patient had a telemedicine visit in office July 2015, was advised to go to the ER given his shortness of breath, fatigue-type symptoms, and however, the patient did not go to the ER until today. In fact his brother, Tahir, called the office, stating that he is being transported to the ER for his worsening shortness of breath, fatigue symptoms. Cardiology was consulted given the patient's atrial fibrillation with RVR. The patient was seen in the ER with shortness of breath, must be intubated, also hypotensive, and it was decided after intubation to cardiovert patient and which he was cardioverted x1 and successfully into sinus rhythm. PAST MEDICAL HISTORY: Recent acute kidney injury, requiring HD therapy 06/2019. Left heart catheterization, in September 12, 2017 with PCI to LAD in 12/2016, PCI to OM and circumflex. Carotid disease with right ICA 57% blockage on carotid Doppler in November 2018. Hypertension, diabetes, hyperlipidemia, asthma . PAST SURGICAL HISTORY: Bilateral cataract surgery, and PCI x3. FAMILY HISTORY: Mother at age 84, history of COPD, diabetes, hypertension. Father at age 42, multiple vehicle accident. SOCIAL HISTORY: He is single. He is a former smoker. 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 He lives alone, however, with caregiver. ALLERGIES: NO KNOWN ALLERGIES. REVIEW OF SYSTEMS: Unable to obtain. The patient is being intubated, short of breath, unable to get information. [id number]
--- NOTE | 2019-08-08 16:13 | NUR ---
Pulmonary Medicine DATE 08/08/2019 SUBJECTIVE: uop low all night, 300 cc so far today daytime tube feeds started 20/hr on ventilator 15/450/50/5 levophed 11/ HR to 200/hr, amiodarone IV started REVIEW OF SYSTEMS: Cannot get, as he is intubated. PHYSICAL EXAMINATION: VITAL SIGNS: vital signs noted per record. GENERAL: Intubated, sedated. HEENT: Normocephalic and atraumatic. NECK: Supple. Throat midline. LUNGS: Bilateral air entry is limited, decreased breath sounds. CARDIOVASCULAR: S1 and S2. No murmurs, rubs, or gallops. ABDOMEN: Soft and nontender. EXTREMITIES: No clubbing. No cyanosis. 1+ edema. INTEGUMENT: No rash. No purpura. LABORATORY DATA: k 4.9, hco3 15, cr 3.14. wbc 7.8, plt 163, hct 39. ast 285, alt 261, ap 208. tb 2.7 IMPRESSION AND PLAN: 1. Acute respiratory failure, intubated. 2. Shock, treat for distributive shock, rule out cardiac. 3. Acute kidney failure. 4. acute liver failure, shock liver presumed. 4. Atrial fibrillation with rapid ventricular rate, better? 5. Abnormal chest radiography, fluid overload component. BNP 1000. 6. Abnormal chest radiography, treat for pneumonia. 7. UTI 7. Elevated alkaline phosphatase and elevated total bilirubin. 8. Metabolic acidosis. 9. History of known coronary artery disease, status post three PCI in the past. 10. Peripheral vascular disease. 11. Hypertension. 12. Diabetes. 13. Hyperlipidemia. 14. Reported asthma. 15. History of mental delay. Some more IVF, bicarbonate replacement -follow UOP, lytes/creatinine pressors titrate maintain intubated, ventilator support adjust. recheck abg today given the metabolic acidosis component start tube feeds follow blood work follow Ultrasound liver/renal result continue rate control as per Cardiology Antibiotics in the interim. Thank you very much, Dr. Townsend, for allowing me a chance to participate in the care of Mr. Brewer. Please call for questions. >30 minutes in direct care here in coordination.
[2019-08-08] MEDS ORDERED: FUROSEMIDE INJ 10 MG/ML 4 ML VIAL IV NR (16:30)
--- NOTE | 2019-08-08 16:44 | NUR ---
Nutrition Intervention Note RD Recommendation(s) for Physician: -With Levophed (>5mcg/min) in place, rec trickle feeding with Vital AF 1.2 Jose Alberto @ 10mL/hr with 30mL water flushes q 4hr -When pt is hemodynamically stable, rec advance TF to goal rate of 60ml/hr, providing 1728kcal, 108g protein, 1168mL water -Check for gastric tolerance, labs, fluid status, and weight Plan of Care: RD following, monitoring for tolerance and adequacy, TF rec Nutrition reason for involvement: New TF RD Assessment 08/07: 69yo M, who is admitted for acute respiratory failure, on mechanical ventilator support. Pt is currently on droplet isolation and no family on bedside. Per RN, pt is on Levophed @11mcg/min and Glucerna 1.2 @20mL/hr. Pt has not started on HD. Rec to keep trickle feeding until pt is more hemodynamically stable. Please consult for TF recommendation if pts status changed. Principal Problems/Diagnoses: Respiratory failure, on mechanical ventilator support. PMH: Mental delay, history of transient dialysis in June 2019, August 2017, heart catheterization with PCI to LAD, peripheral vascular disease with right ICA 57% ultrasonographic blockage in November 2018, hypertension, diabetes, hyperlipidemia, asthma, bilateral cataract surgery, PCI x3 I/O: +3550ml/ -300ml GI: abdomen large, distended, +flatus Skin: Stage II sacral ulcer Labs: (08/07) BUN 59 H, Creatinine 3.14 H, Glucose 200+ H, Ca 8.2 L, Phosphorus 5.2 H, bilirubin 2.7 H, AST 284 H, ALT 261 H, alkaline phosphatase 208 H Meds: amiodarone, levophed, lopressor, pepcid, meropenem, fentanyl, insulin Ht: 67in Wt: 18.lb BMI: 28.2kg/m2 IBW: 148lb +/- 10% Malnutrition Evaluation (08/08/2019) Unable to assess at this time. Will re-evaluate at follow-up as appropriate. Nutrition Prescription (Diet Order): Glucerna 1.2 Estimated Nutritional Needs: Calories: 1620 2025kcal (20-25kcal/kg/d) Weight used: CBW Protein: 81 121g(1-1.5g/kg/d) Weight used: CBW Diet Adequacy: Not meeting calorie needs, Not meeting protein needs Tolerance: Tolerance pending Diet Education Needs Assessment: Diet education not indicated, patient on temporary/transition diet. Nutrition Care Level: Moderate Nutrition Diagnosis: Inadequate oral intake related to current medical status as evidenced by pt requiring EN as main source of nutrition. Goal: Patient will meet 75-100% of estimated needs by follow up Progress: N/A Interventions: Composition, Rate, Route Monitoring/Evaluation: Total energy intake, Total protein intake, Formula/Solution, Weight change Signed: Yoanna Clarke MS, RD, LD
[2019-08-08] MEDS ORDERED: ENOXAPARIN SOD INJ 40 MG/0.4 ML SYR SC SCH (17:00)
[2019-08-08] MEDS: SODIUM BICARBONATE 8.4% SYRING 150 ML in DEXTROSE 5% 1,000 ML IV SCH (17:34)
[2019-08-08] MEDS: ENOXAPARIN SOD INJ 40 MG/0.4 ML SYR SC SCH (17:34)
[2019-08-08] MEDS: METOPROLOL TARTRATE 50 MG TAB PO SCH (17:34)
--- NOTE | 2019-08-08 18:07 | Consultation ---
DATE OF CONSULTATION: SUBJECTIVE: The patient is concerned about sepsis and concerned about pneumonia. This patient is a 69-year-old white male, who has history of mentally challenged, hypertension, hypercholesteremia, coronary artery disease, status post PCI, circumflex LAD. The patient comes in with shortness of breath, which has been sick for a few 3-4 days, but there is no fever, no cough. The patient came to the emergency room where he was admitted. The patient has a telemedicine visit on August 09 for shortness of breath. He is well known to the Cardiology team, Dr. Tanner. The patient comes in. He was short of breath, who found to be in heart failure. He is being admitted. I am asked to see him. The patient is currently intubated and sedated. REVIEW OF SYSTEMS: Could not be obtained. PHYSICAL EXAMINATION: GENERAL: He is intubated, sedated. VITAL SIGNS: Stable. There is no fever since admission. HEENT: Not icteric. NECK: Supple. CHEST: Few crackles at the bases. COR: S1, S2. No S3, S4, or murmur. ABDOMEN: Soft. Bowel sounds present. No tenderness. EXTREMITIES: No edema. SKIN: No rash. LABORATORY DATA: Reviewed. Blood cultures are negative. His white count 7.7, hemoglobin 12.2, platelets 163. Sodium 136, potassium 4.9 with a creatinine 3.4. Liver enzyme elevated at bilirubin 2.7, AST 24. The patient is currently on Cordarone, lopressor, Pepcid, he was given meropenem. IMPRESSION: 1. Acute on chronic congestive heart failure. 2. Atrial fibrillation with rapid ventricular response. 3. Acute respiratory failure secondary to above, rule out pneumonia. 4. Hypertension. 5. Acute kidney injury on chronic kidney disease. 6. Mentally challenged. PLAN: I would recommend change him to Rocephin 1 g a day. Discontinue meropenem. COVID-19 was ordered though clinically stories against that possibility, but we are in the mid of outbreak. We will see what results shows. From Infectious Disease point of view, continue with Rocephin. Continue supportive care, diabetes control, ventilator care. Discussed with the medical team. We will follow. MD HOLLY Pena/DANA /[id number]
--- NOTE | 2019-08-08 18:33 | NUR ---
pt remained stable on vent throughout shift. no changes to vent settings. currently iv: versed @6ml/hr, fent@3.1ml/hr, levo@20.6ml/hr. pt also started on glucerna @20ml/hr. tolerating well. in afternoon pt began afib aundrea upto 206 HR. notified, new orders recvd. pt placed on amio drip per protocol, currently @33ml/hr. per MD, give po metoprolol and amio along with the iv rx. metoprolol iv ordered prn for hr >120. ivf also started at @75. also aware of pt urine output. additional lasix dose given. covid 19 rule out testing done.
[2019-08-08] MEDS: INSULIN GLARGINE 100 UNITS/ML VIAL SQ SCH (22:17)
[2019-08-09] VITALS (21 sets, daily range): BP systolic 84–114; BP diastolic 54–82
[2019-08-09] MEDS: INSULIN LISPRO 100 UNIT/1 ML 3ML VIAL SQ SCH ×5 (01:54→17:44)
[2019-08-09] MEDS: NOREPINEPHRINE 8 MG/D5W 250 ML 250 ML IV SCH ×2 (01:56→09:37)
[2019-08-09 06:14] LABS: ABG HCO3 15 mmol/L (22-26); ABG PCO2 28 mmHg (35-45); ABG PH 7.34 (7.35-7.45)
[2019-08-09 06:16] LABS: BASOPHILS % 0.1 % (0.0-1.0); HEMATOCRIT 43.7 % (38.2-49.6); HEMOGLOBIN 13.4 g/dL (14.0-18.0); LYMPHOCYTES # (AUTO) 0.9 (1.0-3.2); LYMPHOCYTES % 7.1 % (18.0-39.1); MEAN CORPUSCULAR HGB CONC 30.7 g/dL (31-35); MEAN CORPUSCULAR VOLUME 81.4 fL (81-99); MONOCYTES # (AUTO) 0.8 (0.2-0.8); MONOCYTES % 6.3 % (4.4-11.3); NEUTROPHILS # (AUTO) 10.3 (2.1-6.9); NEUTROPHILS % 84.8 % (38.7-80.0); PLATELET COUNT 180 x10e3/uL (140-360); RED BLOOD COUNT 5.37 x10e6/uL (4.3-5.7); RED CELL DISTRIBUTION WIDTH 19.1 % (11.7-14.4)
[2019-08-09] MEDS ORDERED: AMIODARONE HCL 360MG 200 ML IV ONE (06:25)
[2019-08-09 06:50] LABS: ALBUMIN 2.8 g/dL (3.5-5.0); ALBUMIN/GLOBULIN RATIO 1.1 (0.8-2.0); ANION GAP 15.4 mmol/L (8-16); CALCIUM 8.3 mg/dL (8.4-10.2); CREATININE, SERUM 3.47 mg/dL (0.72-1.25); MAGNESIUM 1.9 MG/DL (1.3-2.1); PHOSPHORUS 4.7 MG/DL (2.3-4.7); POTASSIUM 4.4 mmol/L (3.5-5.1)
[2019-08-09 06:53] LABS: THYROID STIMULATING HORMONE 1.328 uIU/mL (0.350-4.940)
--- NOTE | 2019-08-09 08:44 | Diagnostic Imaging Report ---
EXAMINATION: CHEST SINGLE (PORTABLE) INDICATION: Acute respiratory failure. Pleural effusions. COMPARISON: Chest radiograph 08/08/2019. FINDINGS: LINES/TUBES:Endotracheal tube terminates 3.8 cm above the luis. Left IJ central venous catheter terminates at the distal left brachiocephalic vein. Enteric tube terminates in the stomach, the side port is near the GE junction; recommend advancement 2 to 3 cm. LUNGS/PLEURA: Mild bilateral pulmonary venous congestion. Bibasilar densities suggestive of atelectasis. Trace bilateral pleural effusions. No pneumothorax. MEDIASTINUM:Cardiomediastinal silhouette is stably mildly to moderately enlarged. Atherosclerotic calcifications of the thoracic aorta. BONES/SOFT TISSUES:No acute osseous abnormality. ABDOMEN:No free air under the diaphragm. IMPRESSION: 1. Overall stable examination with mild bilateral pulmonary venous congestion. 2. Bilateral small pleural effusions and bibasilar atelectasis. Signed by: Dr. Herbert Thomason M.D. on 08/09/2019 8:41 AM
[2019-08-09] MEDS ORDERED: AMIODARONE HCL 200 MG TAB PO SCH (09:00)
[2019-08-09] MEDS: FAMOTIDINE 20 MG/2 ML VIAL IV SCH (10:01)
[2019-08-09] MEDS: ASPIRIN 81 MG CHEW TAB PO SCH (10:01)
[2019-08-09] MEDS: AMIODARONE HCL 200 MG TAB PO SCH ×3 (10:01→20:46)
[2019-08-09] MEDS: METOPROLOL TARTRATE 50 MG TAB PO SCH ×2 (10:01→16:23)
[2019-08-09] MEDS: MEROPENEM 500MG/ NS 50ML 50 ML IV SCH (10:38)
[2019-08-09] MEDS: SODIUM BICARBONATE 8.4% SYRING 150 ML in DEXTROSE 5% 1,000 ML IV SCH (12:27)
[2019-08-09] MEDS: CEFTRIAXONE SOD 2 GM/NS 100 ML 100 ML IV SCH (12:27)
[2019-08-09] MEDS: FENTANYL CITRATE INJ 2,000 MCG in SODIUM CHLORIDE 0.9% 250ML 210 ML IV SCH (15:41)
[2019-08-09] MEDS: ENOXAPARIN SOD INJ 40 MG/0.4 ML SYR SC SCH (16:23)
[2019-08-09] MEDS ORDERED: SODIUM BICARBONATE 8.4% SYRING 150 ML in DEXTROSE 5% 1,000 ML IV SCH (17:42)
--- NOTE | 2019-08-09 17:42 | NUR ---
Pulmonary Medicine DATE 08/09/2019 SUBJECTIVE: 7.37 ph today, better amiodarone iv finishing protocol urine 550/12 hrs, ~350 cc/12 hrs 15/450/40/5 versed 1, fentanyl 25. sedation vacation being done levophed 12/ REVIEW OF SYSTEMS: Cannot get, as he is intubated. PHYSICAL EXAMINATION: VITAL SIGNS: vital signs noted per record. GENERAL: Intubated, not awake HEENT: Normocephalic and atraumatic. NECK: Supple. Throat midline. LUNGS: Bilateral air entry is limited, decreased breath sounds. CARDIOVASCULAR: S1 and S2. No murmurs, rubs, or gallops. ABDOMEN: Soft and nontender. EXTREMITIES: No clubbing. No cyanosis. 1+ edema. INTEGUMENT: No rash. No purpura. LABORATORY DATA: k 4.4, co2 20, bun 63, cr 3.47. wbc 12, hct 44, plt 180. CXR with mostly clear lungs, left infiltrate / effusion IMPRESSION AND PLAN: 1. Acute respiratory failure, intubated. 2. Shock, treat for distributive shock, rule out cardiac. 3. Acute kidney failure. Oliguric, ?improving. 4. Acute liver failure, shock liver presumed. Improving 4. Atrial fibrillation with rapid ventricular rate, better? 5. Abnormal chest radiography, fluid overload component. BNP 1000. 6. Abnormal chest radiography, treat for pneumonia. 7. UTI complicated 7. Elevated alkaline phosphatase and elevated total bilirubin. 8. Metabolic acidosis. 9. History of known coronary artery disease, s/p PCI x 3 10. Peripheral vascular disease. 11. Hypertension. 12. Diabetes. 13. Hyperlipidemia. 14. Reported asthma. 15. History of mental delay. 16. pleural effusions small to moderate Some more IVF, bicarbonate replacement -follow UOP, lytes/creatinine -down adjust bicarb, down adjust ivf, give more diuretics pressors titrate down as feasible maintain intubated, ventilator support adjust. recheck abg prn for metabolic acidosis component optimize tube feeds follow blood work continue rate control as per Cardiology Antibiotics in the interim. escalate glycemic control Thank you very much, Dr. Townsend, for allowing me a chance to participate in the care of Mr. Brewer. Please call for questions.
[2019-08-09] MEDS: INSULIN REGULAR, HUMAN 100 UNIT/1 ML 3ML VIAL SQ SCH ×2 (18:00→23:19)
[2019-08-09] MEDS: FUROSEMIDE INJ 10 MG/ML 4 ML VIAL IV SCH ×2 (18:55→21:45)
[2019-08-09] MEDS: INSULIN GLARGINE 100 UNITS/ML VIAL SQ SCH (20:44)
--- NOTE | 2019-08-09 21:46 | Diagnostic Imaging Report ---
EXAMINATION: CHEST SINGLE (PORTABLE) INDICATION: Respiratory failure, pleural effusions, difficulty suctioning COMPARISON: Chest x-ray & 2019; chest CT 08/08/2019 FINDINGS: TUBES and LINES: Enteric tube courses into the left upper abdomen, tip out of field of view. Left IJ central venous catheter, tip at the central aspect of the left brachiocephalic vein. ET tube tip terminates 3 cm above luis. LUNGS/PLEURA: Large lung volumes. Mild obscuration of right hemidiaphragm. Obscured left hemidiaphragm. Homogeneous left retrocardiac opacification. No pneumothorax. prominent pulmonary vasculature. HEART AND MEDIASTINUM: Cardiac size is mildly enlarged. There are atherosclerotic calcifications within the aorta. BONES SOFT TISSUES AND UPPER ABDOMEN: Unchanged. IMPRESSION: Lines and tubes as above. Moderate cardiomegaly, pulmonary vascular congestion and moderate bilateral pleural effusions with bilateral lower lung partial collapse, possibly worsening left lower lobe collapse compared to prior. Signed by: Rhys Mina DO on 08/09/2019 9:43 PM
[2019-08-09] MEDS: METOPROLOL TARTRATE INJ 1 MG/ML VIAL IV PRN (23:17)
[2019-08-09] MEDS: MIDAZOLAM HCL 2 MG/2 ML VIAL IV PRN (23:52)
[2019-08-10] VITALS (26 sets, daily range): BP systolic 80–120; BP diastolic 53–92
[2019-08-10] MEDS: METOPROLOL TARTRATE INJ 1 MG/ML VIAL IV PRN ×4 (01:23→09:10)
[2019-08-10] MEDS ORDERED: AMIODARONE HCL 360MG 200 ML IV ONE ×3 (04:22→21:01)
[2019-08-10] MEDS: AMIODARONE HCL 900 MG in DEXTROSE 5% 500ML 500 ML IV SCH ×3 (04:40→21:00)
[2019-08-10] MEDS: INSULIN REGULAR, HUMAN 100 UNIT/1 ML 3ML VIAL SQ SCH ×3 (05:46→17:42)
[2019-08-10 06:09] LABS: BASOPHILS % 0.2 % (0.0-1.0); EOSINOPHILS % 0.1 % (0.0-6.0); HEMATOCRIT 43.5 % (38.2-49.6); HEMOGLOBIN 13.5 g/dL (14.0-18.0); LYMPHOCYTES # (AUTO) 1.7 (1.0-3.2); LYMPHOCYTES % 14.7 % (18.0-39.1); MEAN CORPUSCULAR HEMOGLOBIN 24.7 pg (28-32); MEAN CORPUSCULAR VOLUME 79.7 fL (81-99); MONOCYTES # (AUTO) 0.8 (0.2-0.8); MONOCYTES % 6.7 % (4.4-11.3); NEUTROPHILS # (AUTO) 8.9 (2.1-6.9); NEUTROPHILS % 77.2 % (38.7-80.0); PLATELET COUNT 142 x10e3/uL (140-360); RED BLOOD COUNT 5.46 x10e6/uL (4.3-5.7); RED CELL DISTRIBUTION WIDTH 19.2 % (11.7-14.4)
--- NOTE | 2019-08-10 06:28 | NUR ---
AT 1999, THIS INSURANCE POLICY CLERK HAD DIFFICULTY SUCTIONING THE PT., HOWEVER THE SUCTIONING FLUID HAS THE SAME COLOR THE FEEDING THE PT WAS RECEIVING. FEEDING PLACED ON HOLD TO AVOID ASPIRATION. DR SINGH WAS NOTIFIED. AROUND 2300, PT'S BECAME TACHYCARDIA UP TO THE 150'S. LOPRESSOR 5MG IV GIVEN X4 Q2HRS.NOTIFIED DR LANGSTON. RECEIVED AN ORDER TO RESTART THE AMIODARONE.LEVOPHED AT 9MCG/MIN. PT RESTING WILL CONTINUE TO MONITOR
[2019-08-10 06:32] LABS: ALBUMIN 2.4 g/dL (3.5-5.0); ALBUMIN/GLOBULIN RATIO 1.1 (0.8-2.0); ANION GAP 13.5 mmol/L (8-16); CREATININE, SERUM 2.92 mg/dL (0.72-1.25); MAGNESIUM 1.5 MG/DL (1.3-2.1); PHOSPHORUS 3.4 MG/DL (2.3-4.7); POTASSIUM 3.5 mmol/L (3.5-5.1)
--- NOTE | 2019-08-10 07:00 | NUR ---
BUE/BLE BRUISES AND ABRASHIONS NOTED
[2019-08-10 07:59] LABS: ABG HCO3 17 mmol/L (22-26); ABG PCO2 29 mmHg (35-45); ABG PH 7.37 (7.35-7.45)
[2019-08-10] MEDS: METOPROLOL TARTRATE 50 MG TAB PO SCH ×2 (08:43→17:35)
[2019-08-10] MEDS: FAMOTIDINE 20 MG/2 ML VIAL IV SCH (08:43)
[2019-08-10] MEDS: AMIODARONE HCL 200 MG TAB PO SCH ×3 (08:43→20:59)
[2019-08-10] MEDS: ASPIRIN 81 MG CHEW TAB PO SCH (08:43)
[2019-08-10] MEDS: FUROSEMIDE INJ 10 MG/ML 4 ML VIAL IV SCH ×2 (08:43→20:59)
--- NOTE | 2019-08-10 09:15 | NUR ---
DR. LANGSTON AT . PT REMAINS IN A-FIB WITH RVR IN THE 130'S-140'S. PT IS TO BE CARDIOVERTED. PADS PLACED AND PT SHOCKED @ 200J X2 WITH NSR WITH PAC'S NOTED ON THE MONITOR. PT REMAINS ON A VENT.
--- NOTE | 2019-08-10 10:00 | NUR ---
SPOKE WITH PT'S BROTHER REGARDING PT'S STATUS. QUESTIONS ANSWERED
--- NOTE | 2019-08-10 10:12 | Diagnostic Imaging Report ---
EXAMINATION: CHEST SINGLE (PORTABLE) INDICATION: Pneumonia COMPARISON: Chest radiograph 08/09/2019 FINDINGS: LINES/TUBES:Endotracheal tube terminates 4 cm above the luis. Left IJ central venous catheter terminates in the left innominate vein. Enteric tube terminates in the stomach. EKG leads overlie the chest. LUNGS:The lungs are moderately inflated. There is perihilar fullness and indistinctness of the pulmonary vasculature. There is left basilar opacity silhouetting the left penny diaphragm. PLEURA:Left greater than right pleural effusions unchanged. No pneumothorax. MEDIASTINUM:Cardiomediastinal silhouette is stably enlarged. Atherosclerotic calcifications of the thoracic aorta. BONES/SOFT TISSUES:No acute osseous injury. ABDOMEN:No free air under the diaphragm. IMPRESSION: Unchanged cardiomegaly and pulmonary interstitial edema. Unchanged bilateral pleural effusions. Lines and tubes as above. Signed by: Radha Rose MD on 08/10/2019 10:09 AM
[2019-08-10] MEDS: NOREPINEPHRINE 8 MG/D5W 250 ML 250 ML IV SCH (10:42)
[2019-08-10] MEDS: CEFTRIAXONE SOD 2 GM/NS 100 ML 100 ML IV SCH (11:06)
[2019-08-10] MEDS ORDERED: SODIUM BICARBONATE 8.4% SYRING 150 ML in DEXTROSE 5% 1,000 ML IV SCH (12:00)
--- NOTE | 2019-08-10 14:18 | NUR ---
Pulmonary Medicine DATE 08/10/2019 SUBJECTIVE: levophed 9/ not awakening sufficiently 12450/40/5, pk 23, rr 13, MV 5 L/min amiodarone 0.5/ 98% saturation 450/40/5 UOP 550/, 900 / shifts ivf 40/hr bicarbonate feeds temporarily held for possible aspiration yesterday pm REVIEW OF SYSTEMS: Cannot get, as he is intubated. PHYSICAL EXAMINATION: VITAL SIGNS: vital signs noted per record. GENERAL: Intubated, on ventilator HEENT: Normocephalic and atraumatic. NECK: Supple. Throat midline. LUNGS: Bilateral air entry is limited, decreased breath sounds. CARDIOVASCULAR: S1 and S2. No murmurs, rubs, or gallops. ABDOMEN: Soft and nontender. EXTREMITIES: No clubbing. No cyanosis. 1+ edema. INTEGUMENT: No rash. No purpura. LABORATORY DATA: k 3.5, cr 2.9,k wbc 11.5, hct 43, plt 142. CXR with left effusion, +/- pneumonia vs atelectasis IMPRESSION AND PLAN: 1. Acute respiratory failure, intubated. 2. Shock, treat for distributive shock, rule out cardiac. 3. Acute kidney failure. non-oliguric now, better 4. Acute liver failure, shock liver presumed. Stabilizing? 4. Atrial fibrillation with rapid ventricular rate, better? 5. Abnormal chest radiography, fluid overload component. BNP 1000. 6. Abnormal chest radiography, treat for pneumonia. 7. UTI complicated 7. Elevated alkaline phosphatase and elevated total bilirubin. 8. Metabolic acidosis. 9. History of known coronary artery disease, s/p PCI x 3 10. Peripheral vascular disease. 11. Hypertension. 12. Diabetes. 13. Hyperlipidemia. 14. Reported asthma. 15. History of mental delay. 16. pleural effusions small to moderate Some more IVF, bicarbonate replacement -follow UOP, lytes/creatinine -bicarbonate ivf, give more diuretics. d/c bicarbonate soon pressors titrate down as feasible maintain intubated, ventilator support adjust. recheck abg prn for metabolic acidosis component -ensure awakening optimize tube feeds follow blood work continue rate control as per Cardiology Antibiotics in the interim. escalate glycemic control further if needed consider drainage of pleural effusion if necessary Thank you very much, Dr. Townsend, for allowing me a chance to participate in the care of Mr. Brewer. Please call for questions.
[2019-08-10] MEDS: MIDAZOLAM HCL 2 MG/2 ML VIAL IV PRN ×2 (15:00→21:00)
[2019-08-10] MEDS: LACTATED RINGER'S 1,000 ML IV SCH (15:00)
--- NOTE | 2019-08-10 15:05 | NUR ---
Dr. LANGSTON UNFORMED OF PT IN SR WITH PACS/A-FIB/A-FLUTTER WITH NO NEW ORDERS RE'CD. PT REMAINS ON AMIODARONE/LEVOPHED DRIPS
[2019-08-10] MEDS: FENTANYL CITRATE INJ 2,000 MCG in SODIUM CHLORIDE 0.9% 250ML 210 ML IV SCH (15:45)
[2019-08-10] MEDS: ENOXAPARIN INJ 80 MG/0.8 ML SYR SC SCH (16:40)
--- NOTE | 2019-08-10 18:18 | Progress Note ---
DATE: SUBJECTIVE: Mr. Brewer remains in the intensive care unit. LABORATORY STUDIES: White count today is 11.57 and hemoglobin is 13. Sodium 134, potassium 3.5, creatinine 2.92, and glucose 168. PCR for COVID-19 is negative. PHYSICAL EXAMINATION: GENERAL: He is intubated and sedated. VITAL SIGNS: Stable. Afebrile. HEENT: He is not icteric. NECK: Supple. CHEST: Clear. HEART: S1 and S2. No murmurs. ABDOMEN: Soft. IMPRESSION: 1. Acute on chronic congestive heart failure. 2. Atrial fibrillation. 3. Hypertension. Concern about aspiration pneumonia, currently on Rocephin to finish 5 days. We will follow. MD HOLLY Pena/MATIL /[id number]
[2019-08-10] MEDS: INSULIN GLARGINE 100 UNITS/ML VIAL SQ SCH (22:00)
[2019-08-11] VITALS (27 sets, daily range): BP systolic 72–130; BP diastolic 48–103
[2019-08-11] MEDS: NOREPINEPHRINE 8 MG/D5W 250 ML 250 ML IV SCH (02:00)
[2019-08-11 04:45] LABS: BASOPHILS % 0.2 % (0.0-1.0); EOSINOPHILS # (AUTO) 0.1 (0.0-0.4); EOSINOPHILS % 0.5 % (0.0-6.0); HEMATOCRIT 45.1 % (38.2-49.6); HEMOGLOBIN 14.2 g/dL (14.0-18.0); LYMPHOCYTES # (AUTO) 2.1 (1.0-3.2); LYMPHOCYTES % 16.7 % (18.0-39.1); MEAN CORPUSCULAR HEMOGLOBIN 24.9 pg (28-32); MEAN CORPUSCULAR HGB CONC 31.5 g/dL (31-35); MEAN CORPUSCULAR VOLUME 79.1 fL (81-99); MONOCYTES # (AUTO) 1.2 (0.2-0.8); MONOCYTES % 9.7 % (4.4-11.3); NEUTROPHILS # (AUTO) 9.2 (2.1-6.9); NEUTROPHILS % 71.8 % (38.7-80.0); PLATELET COUNT 138 x10e3/uL (140-360); RED CELL DISTRIBUTION WIDTH 19.2 % (11.7-14.4)
[2019-08-11] MEDS: METOPROLOL TARTRATE INJ 1 MG/ML VIAL IV PRN ×8 (05:00→22:38)
[2019-08-11 05:09] LABS: ALBUMIN 2.2 g/dL (3.5-5.0); ALBUMIN/GLOBULIN RATIO 0.9 (0.8-2.0); ANION GAP 13.4 mmol/L (8-16); CALCIUM 7.9 mg/dL (8.4-10.2); CREATININE, SERUM 2.53 mg/dL (0.72-1.25); MAGNESIUM 1.4 MG/DL (1.3-2.1); POTASSIUM 3.4 mmol/L (3.5-5.1)
[2019-08-11] MEDS: INSULIN REGULAR, HUMAN 100 UNIT/1 ML 3ML VIAL SQ SCH ×5 (06:33→23:38)
[2019-08-11] MEDS: MIDAZOLAM HCL 2 MG/2 ML VIAL IV PRN (07:46)
--- NOTE | 2019-08-11 08:36 | Diagnostic Imaging Report ---
History: Congestive heart failure Comparison: 08/10/2019 Findings: There are small bilateral pleural effusions with adjacent areas of bibasilar atelectasis, similar in appearance. Mild perihilar pulmonary edema is also unchanged. No pneumothorax. Since the prior study, the left jugular catheter has been advanced, with its tip now in the region of the superior vena cava near its junction with the left innominate vein. The endotracheal tube has been advanced. Its tip is now 2 cm proximal to the luis. Nasogastric tube tip is in the region of the stomach. The cardiac shadow remains enlarged. Signed by: Antoino Latham MD on 08/11/2019 8:32 AM
[2019-08-11] MEDS: ASPIRIN 81 MG CHEW TAB PO SCH (08:48)
[2019-08-11] MEDS: METOPROLOL TARTRATE 50 MG TAB PO SCH ×2 (08:48→16:55)
[2019-08-11] MEDS: FUROSEMIDE INJ 10 MG/ML 4 ML VIAL IV SCH ×2 (08:48→21:13)
[2019-08-11] MEDS: AMIODARONE HCL 200 MG TAB PO SCH ×3 (08:48→21:14)
[2019-08-11] MEDS: FAMOTIDINE 20 MG/2 ML VIAL IV SCH (08:48)
[2019-08-11] MEDS ORDERED: AMIODARONE HCL 360MG 200 ML IV ONE ×2 (09:03→22:41)
[2019-08-11] MEDS: AMIODARONE HCL 900 MG in DEXTROSE 5% 500ML 500 ML IV SCH ×2 (09:08→22:38)
[2019-08-11 09:11] LABS: PLATELET ESTIMATE ADEQUATE; PLATELET MORPHOLOGY COMMENT RARE EDTA CLUMPING; RBC MORPHOLOGY COMMENT NORMAL
[2019-08-11 09:12] LABS: ANISOCYTOSIS MODERATE; POIKILOCYTOSIS SLIGHT; POLYCHROMASIA FEW
--- NOTE | 2019-08-11 10:16 | NUR ---
DR. LANGSTON AT BS. ORDER RE'CD TO WEAN PT OFF LEVOPHED. PT IS CURRENTLY @ 7MCG/MIN. BP=79/55 WITH HR=82. DR. LANGSTON AWARE
--- NOTE | 2019-08-11 10:38 | NUR ---
ASSESSMENT: Spiritual concern RN states pt's brother, Tahir, would like for Hand Bobbin Cleaner to pray with pt. Hand Bobbin Cleaner called pt's brother to follow up. Pt's brother concerned that pt will "not make it out of hospital" due to seriousness of illness. Pt's brother states pt "went to [place] with their mother and lived with her" before her several years ago. Pt's brother states another brother, Khanh, lives in [place]. Intervention: Provided unhurried empathic listening and facilitated illness review and storytelling. Provided information on how to reach shrimp cleaner, if needed. Outcome: Pt's brother expressed appreciation for call. Will follow as able. ARIELLE RODNEY Hand Bobbin Cleaner Spiritual Care Department O: [phone]
[2019-08-11] MEDS: MIDODRINE HCL 5 MG TABLET PO SCH ×2 (11:29→15:36)
[2019-08-11] MEDS: CEFTRIAXONE SOD 2 GM/NS 100 ML 100 ML IV SCH (11:29)
--- NOTE | 2019-08-11 12:30 | NUR ---
PT CLEANED AFTER BM. MOD AMT OF SOFT BROWN STOOL NOTED.
--- NOTE | 2019-08-11 12:41 | NUR ---
Nutrition Intervention Note RD Recommendation(s) for Physician: - TF of Glucerna 1.2 not appropriate TF per pt status, recommend change to Vital AF at 10 ml/hr. - When pt is hemodynamically stable (Levophed < 5 mcg/min), advance TF as tolerated to goal rate of 60ml/hr (to provide 1728kcal, 108g protein, 1168mL water). - Water flushes and fluid management per MD. Plan of Care: RD following, monitoring for tolerance and adequacy, TF rec Nutrition reason for involvement: follow up RD Assessment 08/10: Follow up. Pt remains intubated, currently on pressor support of Levophed. Pt continues on TF via OGT of Glucerna 1.2- not appropriate TF for pressor use and not able to meet protein needs. TF held yesterday 2/2 tube feeding colored liquid noted during suctioning per chart. Noted total of 400 ml tube feed given since yesterday. Plan to wean Levophed today per chart. Attempted to call RN x 2 to discuss TF rec's, RN not available. TF rec's for Vital AF remain appropriate. Will continue to monitor. 08/07: 69yo M, who is admitted for acute respiratory failure, on mechanical ventilator support. Pt is currently on droplet isolation and no family on bedside. Per RN, pt is on Levophed @11mcg/min and Glucerna 1.2 @20mL/hr. Pt has not started on HD. Rec to keep trickle feeding until pt is more hemodynamically stable. Please consult for TF recommendation if pts status changed. Principal Problems/Diagnoses: Respiratory failure, on mechanical ventilator support. PMH: Mental delay, history of transient dialysis in June 2019, August 2017, heart catheterization with PCI to LAD, peripheral vascular disease with right ICA 57% ultrasonographic blockage in November 2018, hypertension, diabetes, hyperlipidemia, asthma, bilateral cataract surgery, PCI x3 GI: LBM 08/10 Skin: Stage II sacral ulcer Labs: 08/10: Na 135, K 3.4, BUN 54, Cr 2.53, Gluc 164, POC Gluc 175-242 Meds: lasix, versed, pepcid, insulin, abx IVF/Drips: Levophed at 7 mcg/min, LR at 40 ml/hr, Amiodarone drip Ht: 67in Wt: 18.lb BMI: 28.2kg/m2 IBW: 148lb +/- 10% Malnutrition Evaluation (08/08/2019) Unable to assess at this time. Will re-evaluate at follow-up as appropriate. Nutrition Prescription (Diet Order): Glucerna 1.2 at 50 ml/hr Estimated Nutritional Needs: Calories: 1620 2025kcal (20-25kcal/kg/d) Weight used: CBW Protein: 81 121g(1-1.5g/kg/d) Weight used: CBW Diet Adequacy: Not meeting calorie needs, Not meeting protein needs- 400 ml total given as of yesterday per I/O Tolerance: Tolerance varies Diet Education Needs Assessment: Diet education not indicated, patient on temporary/transition diet. Nutrition Care Level: Moderate Nutrition Diagnosis: Inadequate oral intake related to current medical status as evidenced by pt requiring EN as main source of nutrition. Goal: Patient will meet 75-100% of estimated needs by follow up Progress: not progressing Interventions: Composition, Rate, Route Monitoring/Evaluation: Total energy intake, Total protein intake, Formula/Solution, Weight change Signed: Sheryl Mccartney RD, LD, CNSC
--- NOTE | 2019-08-11 14:42 | NUR ---
PROGRESS [id number]
--- NOTE | 2019-08-11 14:46 | NUR ---
Pulmonary Medicine DATE 08/11/2019 SUBJECTIVE: levophed 5/ afib 130-150's, on amiodarone iv tube feeds as tolerated 40/hr glucerna 1.2 tolerated LR at 40/hr CXR with increased effusions bilateral UOP 800/5 hrs ventilator 12/450/40/5, pk 19, mv 7, REVIEW OF SYSTEMS: Cannot get, as he is intubated. PHYSICAL EXAMINATION: VITAL SIGNS: vital signs noted per record. GENERAL: Intubated, on ventilator HEENT: Normocephalic, atraumatic. NECK: Supple. Throat midline. LUNGS: Bilateral air entry is limited, decreased breath sounds. CARDIOVASCULAR: S1 and S2. No murmurs, rubs, or gallops. ABDOMEN: Soft and nontender. EXTREMITIES: No clubbing. No cyanosis. 1+ edema. INTEGUMENT: No rash. No purpura. LABORATORY DATA: k 3.5, cr 2.9,k wbc 11.5, hct 43, plt 142. CXR with left effusion, +/- pneumonia vs atelectasis IMPRESSION AND PLAN: 1. Acute respiratory failure, intubated. 2. Shock, treat for distributive shock, rule out cardiac. 3. Acute kidney failure. non-oliguric now, better 4. Acute liver failure, shock liver presumed. Stabilizing? 4. Atrial fibrillation with rapid ventricular rate, better? 5. Abnormal chest radiography, fluid overload component. BNP 1000. 6. Abnormal chest radiography, treat for pneumonia. 7. UTI complicated 7. Elevated alkaline phosphatase and elevated total bilirubin. 8. Metabolic acidosis. 9. History of known coronary artery disease, s/p PCI x 3 10. Peripheral vascular disease. 11. Hypertension. 12. Diabetes. 13. Hyperlipidemia. 14. Reported asthma. 15. History of mental delay. 16. pleural effusions moderate Some IVF -follow UOP, lytes/creatinine -consider decreasing diuretics as UOP has picked up significantly pressors titrate off as feasible maintain intubated, ventilator support adjust. recheck abg prn -ensure awakening -wean trials as tolerated now that pressors are better optimize tube feeds follow blood work continue rate control as per Cardiology Antibiotics in the interim. escalate glycemic control further if needed consider drainage of pleural effusion if necessary, repeat chest imaging tomorrow Thank you very much, Dr. Townsend, for allowing me a chance to participate in the care of Mr. Brewer. Please call for questions.
[2019-08-11] MEDS ORDERED: POTASSIUM CHLORIDE 20MEQ/15ML UDC NG PRN (15:00)
[2019-08-11] MEDS ORDERED: POTASSIUM CHLORIDE 20MEQ/15ML UDC NG ONE (15:00)
--- NOTE | 2019-08-11 16:30 | NUR ---
Received call from Cristy with [facility] [employer]. Pt currently on service with them. Office [phone]
[2019-08-11] MEDS: ENOXAPARIN INJ 80 MG/0.8 ML SYR SC SCH (16:54)
--- NOTE | 2019-08-11 17:00 | NUR ---
PT IS CURRENTLY ON LEVOPHED 2MCG/MIN. BP 101/69
--- NOTE | 2019-08-11 18:12 | NUR ---
LEVOPHED STOPPED. WILL MONITOR PT
--- NOTE | 2019-08-11 18:42 | Progress Note ---
DATE: SUBJECTIVE: Mr. Brewer remains in the Intensive Care Unit. OBJECTIVE: GENERAL: Weak. He remains on the ventilator. HEENT: He is not icteric. NECK: Supple. CHEST: Few crackles. COR: S1, S2. ABDOMEN: Soft. LABORATORY DATA: He is currently on Rocephin, blood cultures are negative. White count is 12.78 and hemoglobin 14. Sodium 135, potassium 3.4, and creatinine 2.53. IMPRESSION: 1. Respiratory failure. 2. Lvxvu-dy-bepkuly congestive heart failure. 3. Atrial fibrillation. 4. History of hypertension. 5. Aspiration pneumonia, on Rocephin, stable. 6. Other medical problem, no change. Gerry South MD ZS/MODL /[id number]
[2019-08-11] MEDS: LACTATED RINGER'S 1,000 ML IV SCH (19:23)
[2019-08-11] MEDS: INSULIN GLARGINE 100 UNITS/ML VIAL SQ SCH (21:46)
[2019-08-12] VITALS (26 sets, daily range): BP systolic 60–112; BP diastolic 41–81
[2019-08-12] MEDS: METOPROLOL TARTRATE INJ 1 MG/ML VIAL IV PRN ×2 (00:48→02:35)
[2019-08-12 04:55] LABS: BASOPHILS % 0.1 % (0.0-1.0); EOSINOPHILS # (AUTO) 0.1 (0.0-0.4); EOSINOPHILS % 0.6 % (0.0-6.0); HEMATOCRIT 39.2 % (38.2-49.6); HEMOGLOBIN 12.6 g/dL (14.0-18.0); LYMPHOCYTES # (AUTO) 1.4 (1.0-3.2); LYMPHOCYTES % 15.4 % (18.0-39.1); MEAN CORPUSCULAR HEMOGLOBIN 24.9 pg (28-32); MEAN CORPUSCULAR HGB CONC 32.1 g/dL (31-35); MEAN CORPUSCULAR VOLUME 77.5 fL (81-99); MONOCYTES % 10.6 % (4.4-11.3); NEUTROPHILS # (AUTO) 6.5 (2.1-6.9); NEUTROPHILS % 72.5 % (38.7-80.0); PLATELET COUNT 109 x10e3/uL (140-360); RED BLOOD COUNT 5.06 x10e6/uL (4.3-5.7); RED CELL DISTRIBUTION WIDTH 18.7 % (11.7-14.4)
[2019-08-12 05:22] LABS: ANION GAP 14.6 mmol/L (8-16); CALCIUM 7.8 mg/dL (8.4-10.2); CREATININE, SERUM 2.45 mg/dL (0.72-1.25); MAGNESIUM 1.3 MG/DL (1.3-2.1); PHOSPHORUS 3.1 MG/DL (2.3-4.7); POTASSIUM 3.6 mmol/L (3.5-5.1)
[2019-08-12] MEDS: INSULIN REGULAR, HUMAN 100 UNIT/1 ML 3ML VIAL SQ SCH ×3 (05:26→18:37)
--- NOTE | 2019-08-12 06:09 | Diagnostic Imaging Report ---
EXAMINATION: CHEST SINGLE (PORTABLE) INDICATION: Fluid overload. COMPARISON: Chest radiograph 08/11/2019. FINDINGS: LINES/TUBES:Endotracheal tube terminates 3.2 cm above the luis. Left IJ central venous catheter terminates in the distal left innominate vein. Enteric tube terminates in the stomach. EKG leads overlie the chest. LUNGS/PLEURA:The lungs are moderately inflated. There is perihilar fullness and indistinctness of the pulmonary vasculature. Hazy opacities in the lower lungs, slightly decreased on the left and increased on the right. No evidence of pneumothorax. MEDIASTINUM:Cardiomediastinal silhouette is stably enlarged. Atherosclerotic calcifications of the thoracic aorta. BONES/SOFT TISSUES:No acute osseous injury. ABDOMEN:No free air under the diaphragm. IMPRESSION: Unchanged cardiomegaly and pulmonary interstitial edema. Slightly increased right and decreased left pleural effusions with lower lung zone opacities, likely atelectasis. Lines and tubes as above. No evidence of pneumothorax. Signed by: Dr. Jordan Dutta MD on 08/12/2019 6:06 AM
[2019-08-12] MEDS: FAMOTIDINE 20 MG/2 ML VIAL IV SCH (10:35)
[2019-08-12] MEDS: MIDODRINE HCL 5 MG TABLET PO SCH ×3 (10:35→16:11)
[2019-08-12] MEDS: METOPROLOL TARTRATE 50 MG TAB PO SCH ×2 (10:35→16:11)
[2019-08-12] MEDS: ASPIRIN 81 MG CHEW TAB PO SCH (10:35)
[2019-08-12] MEDS: FUROSEMIDE INJ 10 MG/ML 4 ML VIAL IV SCH ×2 (10:35→21:51)
[2019-08-12] MEDS: AMIODARONE HCL 200 MG TAB PO SCH ×3 (10:35→21:51)
[2019-08-12] MEDS: CEFTRIAXONE SOD 2 GM/NS 100 ML 100 ML IV SCH (10:35)
[2019-08-12] MEDS ORDERED: DIGOXIN INJ 0.25 MG/ML 2 ML AMP IV SCH (10:40)
--- NOTE | 2019-08-12 12:15 | NUR ---
Pulmonary Medicine DATE 08/12/2019 SUBJECTIVE: off pressores on ventilator, good mechanics not awake at all tube feeds 50/ water 30/hr CXR moderate pleural effusion LR at 40/hr ivf REVIEW OF SYSTEMS: Cannot get, as he is intubated. PHYSICAL EXAMINATION: VITAL SIGNS: vital signs noted per record. GENERAL: Intubated, on ventilator HEENT: Normocephalic, atraumatic. NECK: Supple. Throat midline. LUNGS: Bilateral air entry is limited, decreased breath sounds. CARDIOVASCULAR: S1 and S2. No murmurs, rubs, or gallops. ABDOMEN: Soft and nontender. EXTREMITIES: No clubbing. No cyanosis. 1+ edema. INTEGUMENT: No rash. No purpura. LABORATORY DATA: k 3.6, water 28, bun 55, cr 2.46. wbc 9, hct 39, plt 109 IMPRESSION AND PLAN: 1. Acute respiratory failure, intubated. 2. Shock,septic. Resolved 3. Acute kidney failure. non-oliguric now, better CKD stage III? 4. Acute liver failure, shock liver presumed. Stabilizing? 4. Atrial fibrillation with rapid ventricular rate, better? 5. Abnormal chest radiography, fluid overload component. BNP 1000. 6. Abnormal chest radiography, treat for pneumonia. 7. UTI complicated 7. Elevated alkaline phosphatase and elevated total bilirubin. 8. Metabolic acidosis. 9. History of known coronary artery disease, s/p PCI x 3 10. Peripheral vascular disease. 11. Hypertension. 12. Diabetes. 13. Hyperlipidemia. 14. Reported asthma. 15. History of mental delay. 16. Pleural effusions moderate Some IVF low dose -follow UOP, lytes/creatinine -consider decreasing diuretics as UOP has picked up significantly pressors dc if feasible maintain intubated, ventilator support adjust. recheck abg prn -ensure awakening -wean trials, extubate if feasible -consider SIMV ventilation if not extubatable optimize tube feeds follow blood work continue rate control as per Cardiology Antibiotics in the interim. continue glycemic control further if needed consider drainage of pleural effusion if necessary, repeat chest imaging tomorrow Thank you very much, Dr. Townsend, for allowing me a chance to participate in the care of Mr. Brewer. Please call for questions.
--- NOTE | 2019-08-12 13:48 | NUR ---
pt vs remain stable, continues tachycardic. MDs rounded and aware. amio drip dc. pt is off sedations and slowly attempting weaning off vent. pt is not responsive at this time, is periodically moving extremities and eyes. remains very lethargic. brother updated on status.
--- NOTE | 2019-08-12 15:52 | NUR ---
dr hein made aware of pt decreased bp/map. came on unit. ok to continue to monitor, does not want restarted on levophed now or air dispatcher. wants staff to call him to confirm beforehand. hr improved <120. addtl 1x dose of dig ordered. pt remains stable and nonresponsive and off sedation, makes small physical movements on own periodically. was off vent for 3-4hrs and placed back on in SIMV mode at this time.
[2019-08-12] MEDS ORDERED: DIGOXIN INJ 0.25 MG/ML 2 ML AMP IV ONE (16:00)
[2019-08-12] MEDS: ENOXAPARIN INJ 80 MG/0.8 ML SYR SC SCH (16:11)
--- NOTE | 2019-08-12 17:11 | Progress Note ---
DATE: SUBJECTIVE: Mr. Brewer remains in intensive care unit. He is being weaned off the vent slowly. The patient currently remains intubated. PHYSICAL EXAMINATION: VITAL SIGNS: Stable. There is no more fever. HEENT: Nonicteric. NECK: Supple. CHEST: Few rhonchi. COR: S1, S2. No S3, S4, or murmur. ABDOMEN: Soft. Bowel sounds present. No tenderness. EXTREMITIES: No edema. SKIN: No rash. IMPRESSION: 1. Aspiration pneumonia, status post antibiotic, clinically getting better. 2. Respiratory failure. 3. Shdcy-ce-manozoj congestive heart failure. 4. Atrial fibrillation. PLAN: Continue with Rocephin. Continue supportive care. His blood pressure remains on the low side. Cardiology is following. We will follow. MD HOLLY Pena/DANA /[id number]
[2019-08-12] MEDS: INSULIN GLARGINE 100 UNITS/ML VIAL SQ SCH (21:00)
[2019-08-12] MEDS: LACTATED RINGER'S 1,000 ML IV SCH (21:29)
[2019-08-13] VITALS (26 sets, daily range): BP systolic 73–115; BP diastolic 45–91
[2019-08-13] MEDS: INSULIN REGULAR, HUMAN 100 UNIT/1 ML 3ML VIAL SQ SCH ×5 (01:05→21:48)
[2019-08-13 05:24] LABS: BASOPHILS % 0.1 % (0.0-1.0); EOSINOPHILS # (AUTO) 0.2 (0.0-0.4); HEMATOCRIT 36.9 % (38.2-49.6); HEMOGLOBIN 12.1 g/dL (14.0-18.0); LYMPHOCYTES # (AUTO) 1.6 (1.0-3.2); LYMPHOCYTES % 17.5 % (18.0-39.1); MEAN CORPUSCULAR HEMOGLOBIN 25.2 pg (28-32); MEAN CORPUSCULAR HGB CONC 32.8 g/dL (31-35); MEAN CORPUSCULAR VOLUME 76.7 fL (81-99); MONOCYTES # (AUTO) 1.1 (0.2-0.8); MONOCYTES % 11.8 % (4.4-11.3); NEUTROPHILS # (AUTO) 6.2 (2.1-6.9); NEUTROPHILS % 67.9 % (38.7-80.0); PLATELET COUNT 107 x10e3/uL (140-360); RED BLOOD COUNT 4.81 x10e6/uL (4.3-5.7); RED CELL DISTRIBUTION WIDTH 18.7 % (11.7-14.4)
[2019-08-13 06:14] LABS: ALBUMIN/GLOBULIN RATIO 0.8 (0.8-2.0); ANION GAP 12.8 mmol/L (8-16); CREATININE, SERUM 2.35 mg/dL (0.72-1.25); POTASSIUM 3.8 mmol/L (3.5-5.1)
--- NOTE | 2019-08-13 06:55 | Diagnostic Imaging Report ---
EXAMINATION: CHEST SINGLE (PORTABLE) INDICATION: CHF. COMPARISON: Chest radiograph 08/12/2019. FINDINGS: LINES/TUBES:Endotracheal tube terminates 3.9 cm above the luis. Left IJ central venous catheter terminates in the distal left innominate vein. Enteric tube terminates in the stomach. EKG leads overlie the chest. LUNGS/PLEURA:The lungs are moderately inflated. There is increasing perihilar fullness and indistinctness of the pulmonary vasculature. Hazy opacities in the lower lungs, increased on the left. No evidence of pneumothorax. MEDIASTINUM:Cardiomediastinal silhouette is enlarged. Atherosclerotic calcifications of the thoracic aorta. BONES/SOFT TISSUES:No acute osseous injury. ABDOMEN:No free air under the diaphragm. IMPRESSION: Cardiomegaly and increased pulmonary edema. Increased left and persistent right pleural effusions with lower lung zone opacities, likely atelectasis. Lines and tubes as above. No evidence of pneumothorax. Signed by: Dr. Jordan Dutta MD on 08/13/2019 6:51 AM
[2019-08-13] MEDS: ASPIRIN 81 MG CHEW TAB PO SCH (08:42)
[2019-08-13] MEDS: METOPROLOL TARTRATE 50 MG TAB PO SCH ×2 (08:42→15:47)
[2019-08-13] MEDS: FAMOTIDINE 20 MG/2 ML VIAL IV SCH (08:42)
[2019-08-13] MEDS: FUROSEMIDE INJ 10 MG/ML 4 ML VIAL IV SCH (08:42)
[2019-08-13] MEDS: MIDODRINE HCL 5 MG TABLET PO SCH ×3 (08:42→15:47)
[2019-08-13] MEDS: AMIODARONE HCL 200 MG TAB PO SCH ×3 (08:42→20:30)
[2019-08-13] MEDS: METOPROLOL TARTRATE INJ 1 MG/ML VIAL IV PRN ×3 (09:20→22:45)
[2019-08-13] MEDS: CEFTRIAXONE SOD 2 GM/NS 100 ML 100 ML IV SCH (10:17)
[2019-08-13] MEDS ORDERED: DEXTROSE 5% 1,000 ML IV SCH (12:45)
--- NOTE | 2019-08-13 13:09 | NUR ---
pt has been extubated. tolerating on nc well. continues to be lethargic. able to follow some commands.
--- NOTE | 2019-08-13 13:42 | NUR ---
Pulmonary Medicine DATE 08/13/2019 SUBJECTIVE: LR at 40/hr ivf tube feeds tolerated HR 110-120s 2.2 L in 2.9 L out yesterday good UOP so far today intubated, later extubated. NIF ~30. REVIEW OF SYSTEMS: Cannot get, as he is intubated. PHYSICAL EXAMINATION: VITAL SIGNS: vital signs noted per record. GENERAL: Intubated, on ventilator HEENT: Normocephalic, atraumatic. NECK: Supple. Throat midline. LUNGS: Bilateral air entry is limited, decreased breath sounds. CARDIOVASCULAR: S1 and S2. No murmurs, rubs, or gallops. ABDOMEN: Soft and nontender. EXTREMITIES: No clubbing. No cyanosis. 1+ edema. INTEGUMENT: No rash. No purpura. LABORATORY DATA: k 3.8, cr 2.36. wbc 9. hct 37. plt 107 dig 2.69 IMPRESSION AND PLAN: 1. Acute respiratory failure, intubated/extubated 2. Shock, septic. Resolved 3. Acute kidney failure. Resolving CKD stage III? 4. Acute liver failure, shock liver presumed. Stabilizing/improving 4. Atrial fibrillation with rapid ventricular rate, better? 5. Abnormal chest radiography, fluid overload component. BNP 1000. 6. Abnormal chest radiography, treat for pneumonia. 7. UTI complicated 7. Elevated alkaline phosphatase and elevated total bilirubin. 8. Metabolic acidosis. 9. History of known coronary artery disease, s/p PCI x 3 10. Peripheral vascular disease. 11. Hypertension. 12. Diabetes. 13. Hyperlipidemia. 14. Reported asthma. 15. History of mental delay. 16. Pleural effusions moderate Some IVF low dose -follow UOP, lytes/creatinine - diuretics , follow UOP . change IVF to Dextrose with diuresis and follow sodium Check US chest, consider thoracentesis (would hold lovenox) Extubated dc ventilator swallow evaluation by Speech prior to eating? pt very debilitated, cognitively impaired? follow blood work continue rate control as per Cardiology Antibiotics in the interim. continue glycemic control further if needed Thank you very much, Dr. Townsend, for allowing me a chance to participate in the care of Mr. Brewer. Please call for questions. >30 min direct care and coordination today, not including procedures
[2019-08-13 13:57] LABS: ABG HCO3 29 mmol/L (22-26); ABG PCO2 37 mmHg (35-45)
[2019-08-13] MEDS: ENOXAPARIN INJ 80 MG/0.8 ML SYR SC SCH (15:47)
--- NOTE | 2019-08-13 16:05 | Progress Note ---
DATE: SUBJECTIVE: Mr. Brewer is extubated today. He is comfortable still, but confused, still weak. Remains in intensive care unit. REVIEW OF SYSTEMS: There is nothing new today. OBJECTIVE: VITAL SIGNS: Stable, afebrile. HEENT: He is not icteric. NECK: Supple. CHEST: Clear bilateral. HEART: S1 and S2. No S3, S4, or murmur. ABDOMEN: Soft. Bowel sounds present. EXTREMITIES: No edema. SKIN: No rash. IMPRESSION: 1. Community-acquired pneumonia, tomorrow is day #7 of Rocephin. We can discontinue. 2. Respiratory failure, resolved. 3. Debility, would benefit from going to skilled care facility. Continue with supportive care. We will follow. MD HOLLY Pena/DANA /[id number]
[2019-08-13] MEDS ORDERED: PHENYLEPHRINE 10MG/ML VIAL 40 MG in DEXTROSE 5% 250ML 246 ML IV PRN (17:15)
--- NOTE | 2019-08-13 17:51 | Diagnostic Imaging Report ---
EXAM: US CHEST (INCL MEDIASTINUM) INDICATION: ^pleural effusion ^[id number] ^[id number] COMPARISON: Same day chest x-ray TECHNIQUE: Transverse and sagittal images were performed of the lung bases. IMPRESSION: Medium to large bilateral pleural effusions. Signed by: Dr. Dixon Estrella MD on 08/13/2019 5:48 PM
--- NOTE | 2019-08-13 18:22 | NUR ---
ST Note: Order for bedside swallow eval noted. EMR reviewed. Pt intubated ~ 6 days, extubated this afternoon ~1300. Will initiate swallow eval tomorrow 08/14/19.
[2019-08-13] MEDS: INSULIN GLARGINE 100 UNITS/ML VIAL SQ SCH (21:00)
[2019-08-14] VITALS (26 sets, daily range): BP systolic 88–129; BP diastolic 42–92
[2019-08-14] MEDS: INSULIN REGULAR, HUMAN 100 UNIT/1 ML 3ML VIAL SQ SCH ×3 (05:24→17:36)
[2019-08-14] MEDS: METOPROLOL TARTRATE INJ 1 MG/ML VIAL IV PRN ×3 (06:24→16:47)
[2019-08-14 06:32] LABS: BASOPHILS % 0.1 % (0.0-1.0); EOSINOPHILS # (AUTO) 0.2 (0.0-0.4); EOSINOPHILS % 2.2 % (0.0-6.0); HEMATOCRIT 35.3 % (38.2-49.6); HEMOGLOBIN 11.1 g/dL (14.0-18.0); LYMPHOCYTES # (AUTO) 1.3 (1.0-3.2); LYMPHOCYTES % 18.4 % (18.0-39.1); MEAN CORPUSCULAR HEMOGLOBIN 24.3 pg (28-32); MEAN CORPUSCULAR HGB CONC 31.4 g/dL (31-35); MEAN CORPUSCULAR VOLUME 77.2 fL (81-99); MONOCYTES # (AUTO) 0.9 (0.2-0.8); MONOCYTES % 12.4 % (4.4-11.3); NEUTROPHILS # (AUTO) 4.5 (2.1-6.9); NEUTROPHILS % 66.2 % (38.7-80.0); PLATELET COUNT 91 x10e3/uL (140-360); RED BLOOD COUNT 4.57 x10e6/uL (4.3-5.7)
--- NOTE | 2019-08-14 06:39 | Diagnostic Imaging Report ---
EXAMINATION: CHEST SINGLE (PORTABLE) INDICATION: Pleural effusions. COMPARISON: Chest radiograph 08/13/2019. FINDINGS: LINES/TUBES: Interval extubation. Interval removal of enteric tube. Left IJ central venous catheter terminates in the distal left innominate vein. Enteric tube terminates in the stomach. EKG leads overlie the chest. LUNGS/PLEURA:The lungs are moderately inflated. There is perihilar fullness and indistinctness of the pulmonary vasculature. Hazy opacities in the lower lungs, slightly increased on the right and slightly decreased on the left. No evidence of pneumothorax. MEDIASTINUM:Cardiomediastinal silhouette is enlarged. Atherosclerotic calcifications of the thoracic aorta. BONES/SOFT TISSUES:No acute osseous injury. ABDOMEN:No free air under the diaphragm. IMPRESSION: Cardiomegaly and pulmonary edema. Bilateral moderate pleural effusions with lower lung zone opacities, likely atelectasis. Interval extubation and removal of enteric tube. Signed by: Dr. Jordan Dutta MD on 08/14/2019 6:36 AM
[2019-08-14 06:52] LABS: DIGOXIN 0.58 ng/mL (0.8-2.0)
[2019-08-14 07:03] LABS: ALBUMIN 2.1 g/dL (3.5-5.0); ALBUMIN/GLOBULIN RATIO 0.8 (0.8-2.0); ANION GAP 11.7 mmol/L (8-16); CALCIUM 8.3 mg/dL (8.4-10.2); CREATININE, SERUM 2.08 mg/dL (0.72-1.25); POTASSIUM 3.7 mmol/L (3.5-5.1)
--- NOTE | 2019-08-14 08:08 | NUR ---
CALL PLACED TO PT'S BROTHER TO OBTAIN CONSENT FOR THORACENTESIS. MESSAGE LEFT
[2019-08-14] MEDS: MIDODRINE HCL 5 MG TABLET PO SCH ×3 (08:22→17:17)
[2019-08-14] MEDS: ASPIRIN 81 MG CHEW TAB PO SCH (08:30)
[2019-08-14] MEDS: FAMOTIDINE 20 MG/2 ML VIAL IV SCH (08:30)
[2019-08-14] MEDS: AMIODARONE HCL 200 MG TAB PO SCH ×3 (08:30→21:51)
--- NOTE | 2019-08-14 08:30 | NUR ---
AM MEDS GIVEN WITH SM AMT OF ORANGE JELLO. PT TOLERATED WELL
[2019-08-14] MEDS: METOPROLOL TARTRATE 50 MG TAB PO SCH ×2 (08:31→17:18)
--- NOTE | 2019-08-14 09:20 | NUR ---
spoke with pt's brother. BROTHER STATED, "I WANT TO TALK TO THE DR AND MY FAMILY MEMBER'S BEFORE DECIDING ON LETTING HIS BROTHER HAVE A THORACENTESIS."
[2019-08-14 10:53] LABS: ABG PO2 147 mmHg (80-105)
[2019-08-14] MEDS ORDERED: DIGOXIN INJ 0.25 MG/ML 2 ML AMP IV ONE (11:00)
[2019-08-14 11:03] LABS: ABG PO2 124 mmHg (80-105)
[2019-08-14] MEDS: CEFTRIAXONE SOD 2 GM/NS 100 ML 100 ML IV SCH (11:22)
--- NOTE | 2019-08-14 11:30 | NUR ---
SPEECH PATHOLOGIST AT FOR SWALLOW STUDY
--- NOTE | 2019-08-14 11:45 | NUR ---
IV ABX STOPPED DUEO FLUID POOLING IN PT'S LT IJ GARY. WILL REPORT TO DR. SINGH.
--- NOTE | 2019-08-14 11:45 | NUR ---
time out performed
--- NOTE | 2019-08-14 11:53 | NUR ---
thoracentesis started
--- NOTE | 2019-08-14 12:00 | NUR ---
20G TO PT'S RAC INSERTED X 1 ATTEMPT BY REGULATOR ASSEMBLER TERRA
--- NOTE | 2019-08-14 12:16 | NUR ---
DR. SINGH SPEAKING TO PT'S BROTHER REGARDING PROCEDURE.
--- NOTE | 2019-08-14 12:32 | NUR ---
IR AT BS FOR THORACENTESIS
--- NOTE | 2019-08-14 13:00 | NUR ---
Procedure complete. 600cc clr/tea colored fld obtained. tegaderm with 2x2 gauze placed. site with scant amt of blood noted. pt tolerated well.
--- NOTE | 2019-08-14 13:15 | NUR ---
rad at bs for stat post procedure xray
--- NOTE | 2019-08-14 13:30 | NUR ---
LT IJ TRIPLE LUMEN DC'ED AND PRESSURE DRSG PLACED. CATHETER TIP NOTED INTACT. SITE NOTED WITH ERYTHEMA AND SLIGHT SWELLING
--- NOTE | 2019-08-14 13:34 | Diagnostic Imaging Report ---
EXAMINATION: CHEST SINGLE (PORTABLE) INDICATION: Postprocedural COMPARISON: Chest radiograph 08/14/2019 FINDINGS: LINES/TUBES:Left IJ central venous catheter terminates at the junction of innominate veins. LUNGS:The lung volumes are low. There is perihilar fullness and indistinctness of the pulmonary vasculature. There is left basilar opacity silhouetting the left penny diaphragm. PLEURA:No pleural effusion or pneumothorax. MEDIASTINUM:Cardiomediastinal silhouette is stably enlarged. BONES/SOFT TISSUES:No acute osseous injury. ABDOMEN:No free air under the diaphragm. IMPRESSION: No pneumothorax status post thoracentesis. Unchanged cardiomegaly and pulmonary interstitial edema. Left basilar opacity, most likely subsegmental atelectasis. Signed by: Radha Rose MD on 08/14/2019 1:30 PM
--- NOTE | 2019-08-14 14:14 | NUR ---
Pulmonary Medicine DATE 08/14/2019 SUBJECTIVE: patient today on 3 L/min oxygen 100% saturation still weak not initiating conversation hr 122 far from eating orally thoracentesis today, 600 cc right REVIEW OF SYSTEMS: Cannot get, as he is intubated. PHYSICAL EXAMINATION: VITAL SIGNS: vital signs noted per record. GENERAL: Intubated, on ventilator HEENT: Normocephalic, atraumatic. NECK: Supple. Throat midline. LUNGS: Bilateral air entry is limited, decreased breath sounds. CARDIOVASCULAR: S1 and S2. No murmurs, rubs, or gallops. ABDOMEN: Soft and nontender. EXTREMITIES: No clubbing. No cyanosis. 1+ edema. INTEGUMENT: No rash. No purpura. LABORATORY DATA: k 3.7, cr 2.08, bun 54. wbc 6.8, hct 35, plt 91. IMPRESSION AND PLAN: 1. Acute respiratory failure, intubated/extubated 2. Shock, septic. Resolved 3. Acute kidney failure. Resolving CKD stage III? 4. Acute liver failure, shock liver presumed. Stabilizing/improving 4. Atrial fibrillation with rapid ventricular rate, better? 5. Abnormal chest radiography, fluid overload component. BNP 1000. 6. Abnormal chest radiography, treat for pneumonia. 7. UTI complicated 8. Elevated alkaline phosphatase and elevated total bilirubin. 9. hx CAD, s/p PCI x 3 10. Peripheral vascular disease. 11. Hypertension. 12. Diabetes. 13. Hyperlipidemia. 14. Reported asthma. 15. Hx mental delay. 16. Pleural effusions moderate. s/p right thoracentesis 17. stage II decubitus ulcer sacral, present on admit Some IVF low dose -follow UOP, lytes/creatinine -diuretics , follow UOP. IVF Dextrose with diuresis and follow sodium US thoracentesis today. Consider US thoracentesis on Saturday (would hold lovenox) Oxygen per protocol NGT, tube feeds --follow with swallow therapist. NPO for now continue rate control as per Cardiology Antibiotics in the interim. continue glycemic control further if needed dc CVC dc enamorado in 1-2 days? Thank you very much, Dr. Townsend, for allowing me a chance to participate in the care of Mr. Brewer. Please call for questions.
--- NOTE | 2019-08-14 14:15 | NUR ---
Procedure quick 12note [id number] Thoracentesis right US guidance by radiology team 600 cc clear straw yellow fluid out EBL <1 cc, complications none
[2019-08-14] MEDS ORDERED: VANCOMYCIN 1GM/NS 250 ML 250 ML IV ONE (15:00)
--- NOTE | 2019-08-14 15:00 | NUR ---
17F SARAH PEDRAZA NGT PLACED X 1 ATTEMPT TO PT'S LT NARE PER DR. SINGH'S ORDER. FEEDINGS ON HOLD FOR HIDA SCAN
--- NOTE | 2019-08-14 15:44 | Diagnostic Imaging Report ---
EXAMINATION: CHEST SINGLE (PORTABLE) INDICATION: Enteric tube placement COMPARISON: Chest radiograph earlier the same day FINDINGS: LINES/TUBES:Enteric tube appears to be placed in the airway, terminating in the right bronchus intermedius. EKG leads overlie the chest. LUNGS:Images of the lung bases are blurred by respiratory motion artifact. No definite focal consolidation. PLEURA:No pleural effusion or pneumothorax. MEDIASTINUM:Unchanged cardiomegaly. BONES/SOFT TISSUES:No acute osseous injury. ABDOMEN:No free air under the diaphragm. IMPRESSION: Enteric tube appears to terminate in the airway in the right bronchus intermedius. Recommend withdrawal and replacement. The above findings were discussed with Dr. Kaylie HARTLEY on 08/14/2019 3:38 PM, who responded indicating that the communication was understood. Signed by: Radha Rose MD on 08/14/2019 3:41 PM
--- NOTE | 2019-08-14 16:55 | Diagnostic Imaging Report ---
EXAMINATION: CHEST SINGLE (PORTABLE) INDICATION: Enteric tube placement COMPARISON: Chest radiograph of earlier the same day FINDINGS: LINES/TUBES:Enteric tube terminates in the stomach. LUNGS:The lungs are incompletely visualized. No definite focal consolidation. MEDIASTINUM:Unchanged. BONES/SOFT TISSUES:No acute osseous injury. ABDOMEN:No free air under the diaphragm. IMPRESSION: Enteric tube terminates in the stomach. Signed by: Radha Rose MD on 08/14/2019 4:52 PM
[2019-08-14 17:04] LABS: LYMPHOCYTES,BODY FLUID 34 %; MONO/MACROPHG,BODY FLUID 8 %; NEUTROPHILS,BODY FLUID 18 %; OTHER CELLS,BODY FLUID 40 %
--- NOTE | 2019-08-14 17:12 | NUR ---
Nutrition Intervention Note RD Recommendation(s) for Physician: - Recommend Glucerna 1.2 @ goal rate of 60 mL/hr. Water flushes and fluid management per MD. (provides 1728 kcal, 86 g protein, and 1159 mL water) When diet is able to be advanced, recommend 1800 kcal consistent carbohydrate/cardiac diet Plan of Care: RD following, monitoring for tolerance and adequacy, TF rec Nutrition reason for involvement: follow up RD Assessment 08/13: Follow up. Pt was extubated yesterday. MAINTENANCE AIDE evaluated pt today and recommended that pt remain NPO and consider NGT for nutrition. Will continue to monitor. 08/10: Follow up. Pt remains intubated, currently on pressor support of Levophed. Pt continues on TF via OGT of Glucerna 1.2- not appropriate TF for pressor use and not able to meet protein needs. TF held yesterday 2/2 tube feeding colored liquid noted during suctioning per chart. Noted total of 400 ml tube feed given since yesterday. Plan to wean Levophed today per chart. Attempted to call RN x 2 to discuss TF rec's, RN not available. TF rec's for Vital AF remain appropriate. Will continue to monitor. 08/07: 69yo M, who is admitted for acute respiratory failure, on mechanical ventilator support. Pt is currently on droplet isolation and no family on bedside. Per RN, pt is on Levophed @11mcg/min and Glucerna 1.2 @20mL/hr. Pt has not started on HD. Rec to keep trickle feeding until pt is more hemodynamically stable. Please consult for TF recommendation if pts status changed. Principal Problems/Diagnoses: Respiratory failure, on mechanical ventilator support. PMH: Mental delay, history of transient dialysis in June 2019, August 2017, heart catheterization with PCI to LAD, peripheral vascular disease with right ICA 57% ultrasonographic blockage in November 2018, hypertension, diabetes, hyperlipidemia, asthma, bilateral cataract surgery, PCI x3 GI: LBM 08/12 Skin: Stage II sacral ulcer Labs: 08/13: Na 133, BUN 54, Creat 2.08, Ca 8.3, Total Bili 2.2, AST 66, ALT 111 08/10: Na 135, K 3.4, BUN 54, Cr 2.53, Gluc 164, POC Gluc 175-242 Meds: metoprolol, insulin Ht: 67in Wt: 182 lb BMI: 28.5kg/m2 IBW: 148lb +/- 10% Malnutrition Evaluation (08/08/2019) Unable to assess at this time. Will re-evaluate at follow-up as appropriate. Nutrition Prescription (Diet Order): Glucerna 1.2 at 50 ml/hr (tube feeding is not running at this time) Estimated Nutritional Needs: Calories: 1655 2068 kcal (20-25kcal/kg/d) Weight used: 82.7 kg (182 lbs) Protein: 83 124g (1-1.5g/kg/d) Weight used: 82.7 kg (182 lbs) Diet Adequacy: Not meeting calorie needs, Not meeting protein needs Tolerance: N/A Diet Education Needs Assessment: Diet education not indicated, patient on temporary/transition diet. Nutrition Care Level: Moderate Nutrition Diagnosis: Inadequate oral intake related to current medical status as evidenced by pt requiring EN as main source of nutrition. Goal: Patient will meet 75-100% of estimated needs by follow up Progress: not progressing Interventions: Composition, Rate, Route Monitoring/Evaluation: Total energy intake, Total protein intake, Formula/Solution, Weight change Signed: Angie Rivero, RD, LD
[2019-08-14 17:48] LABS: BODY FLUID APPEARANCE SL.CLOUDY; BODY FLUID COLOR STRAW; BODY FLUID TYPE PLEURAL; RBC,BODY FLUID 1216 cells/uL; WBC,BODY FLUID 116 cells/uL
--- NOTE | 2019-08-14 20:43 | Operative Report ---
DATE OF PROCEDURE: 08/14/2019 SURGEON: Alex Flores MD PROCEDURES: 1. Therapeutic/diagnostic thoracentesis. 2. Ultrasound guidance by Radiology team. INDICATION: Respiratory failure, pleural effusions. CONSENT: Informed consent was achieved from brother via telephone conversation. ANESTHESIA: Local lidocaine 1%, 6 mL utilized. FINDINGS: After localization with Radiology ultrasound probe by the Radiology team, the fluid was localized. Local anesthesia provided at right 8th intercostal space with the patient lying in left lateral decubitus position. After local lidocaine was instilled, the thoracentesis catheter was inserted into pleural space with pull-back of yellow straw colored fluid that was clear; 600 mL was removed. Thereafter, thoracentesis catheter was removed and the procedure was terminated. COMPLICATIONS: None. ESTIMATED BLOOD LOSS: Less than 1 mL. IMPRESSION: Successful right thoracentesis, 600 mL output. Ultrasound guidance by a Radiology team. Alex Flores MD GMN/MODL /[id number]
[2019-08-14] MEDS: INSULIN GLARGINE 100 UNITS/ML VIAL SQ SCH (21:00)
--- NOTE | 2019-08-14 21:20 | Diagnostic Imaging Report ---
Hepatobiliary Scan with Gallbladder Ejection Fraction Clinical information: Acute respiratory failure; abdominal pain Technique: Following intravenous administration of 6 millicuries of Tc-99m mebrofenin, dynamic images of the abdomen in the anterior projection were obtained through 60 minutes. Sincalide (CCK analog) 1.7 micrograms was administered intravenously over 30 minutes with additional imaging for determination of gallbladder ejection fraction. Discussion: Perfusion of the liver is normal. The liver is overall reduced in size. Extraction of tracer by the liver parenchyma is markedly prolonged. Tracer appears within the biliary tract by 20 minutes. The gallbladder begins to fill by 28 minutes post injection of tracer and fills adequately. Tracer is seen in the small bowel by 44 minutes. The gallbladder ejection fraction with sincalide is 36% (normal greater than 40%). Impression: 1. Filling of the gallbladder excludes acute cystic duct obstruction/acute cholecystitis. 2. The decreased gallbladder ejection fraction of 36% supports the clinical diagnosis of chronic cholecystitis/gallbladder dyskinesia. 3. Moderately sever hepatocyte dysfunction with overall reduced liver size. Signed by: Dr. Josefina Holguin M.D. on 08/14/2019 9:17 PM
[2019-08-15] VITALS (25 sets, daily range): BP systolic 87–127; BP diastolic 49–87
[2019-08-15 05:37] LABS: ALBUMIN 2.1 g/dL (3.5-5.0); ALBUMIN/GLOBULIN RATIO 0.8 (0.8-2.0); ANION GAP 17.4 mmol/L (8-16); CALCIUM 8.4 mg/dL (8.4-10.2); CREATININE, SERUM 2.07 mg/dL (0.72-1.25); POTASSIUM 4.4 mmol/L (3.5-5.1)
[2019-08-15 05:45] LABS: DIGOXIN 0.95 ng/mL (0.8-2.0)
[2019-08-15] MEDS: INSULIN REGULAR, HUMAN 100 UNIT/1 ML 3ML VIAL SQ SCH ×5 (05:52→23:50)
[2019-08-15] MEDS: AMIODARONE HCL 200 MG TAB PO SCH ×3 (09:00→20:20)
[2019-08-15] MEDS: ASPIRIN 81 MG CHEW TAB PO SCH (09:00)
[2019-08-15] MEDS: METOPROLOL TARTRATE 50 MG TAB PO SCH ×2 (09:00→17:00)
[2019-08-15] MEDS: MIDODRINE HCL 5 MG TABLET PO SCH ×3 (09:00→16:00)
[2019-08-15] MEDS ORDERED: DIGOXIN INJ 0.25 MG/ML 2 ML AMP IV ONE (11:15)
--- NOTE | 2019-08-15 11:33 | NUR ---
progress [id number]
--- NOTE | 2019-08-15 13:41 | Progress Note ---
DATE: SUBJECTIVE: Mr. Brewer is improving still, but had arrhythmia today. He remains in intensive care unit. PHYSICAL EXAMINATION: GENERAL: He is alert, off the vent. VITAL SIGNS: Stable, afebrile. HEENT: Not icteric. NECK: Supple. CHEST: Few crackles. HEART: S1, S2. No S3, S4, or murmur. ABDOMEN: Soft. Bowel sounds present. No tenderness. EXTREMITIES: No edema. SKIN: No rash. IMPRESSION: 1. Pneumonia, present on admission, resolved. 2. Congestive heart failure. 3. Pleural effusion, underwent thoracocentesis. 4. Arrhythmia from coronary artery disease from debility. PLAN: Can discontinue antibiotic. Continue with supportive care. Discussed with the medical team. MD HOLLY Pena/DANA /[id number]
[2019-08-15] MEDS: CEFTRIAXONE SOD 2 GM/NS 100 ML 100 ML IV SCH (16:51)
--- NOTE | 2019-08-15 16:57 | NUR ---
Pulmonary Medicine DATE 08/15/2019 SUBJECTIVE: hida 36% ef 98% sat 3 L/min oxygen ineffective cough, getting intermittent oral suction he attempts to cough with poor glottic explosion enamorado he tries to speak, poor voice REVIEW OF SYSTEMS: Cannot get, poor voice PHYSICAL EXAMINATION: VITAL SIGNS: vital signs noted per record. GENERAL: Pale, weak in bed HEENT: Normocephalic, atraumatic. NECK: Supple. Throat midline. LUNGS: Bilateral air entry is limited, decreased breath sounds. CARDIOVASCULAR: S1 and S2. No murmurs, rubs, or gallops. ABDOMEN: Soft and nontender. EXTREMITIES: No clubbing. No cyanosis. 1+ edema. INTEGUMENT: No rash. No purpura. LABORATORY DATA: Na 133, k 4.4, cr 2.07, wbc 6.8, hct 35, plt 91 IMPRESSION AND PLAN: 1. Acute respiratory failure, intubated/extubated 2. Shock, septic. Resolved 3. Acute kidney failure. Resolving CKD stage III? 4. Acute liver failure, shock liver presumed. Stabilizing/improving 4. Atrial fibrillation with rapid ventricular rate, better? 5. Abnormal chest radiography, fluid overload component. BNP 1000. 6. Abnormal chest radiography, treat for pneumonia. 7. UTI complicated 8. Elevated alkaline phosphatase and elevated total bilirubin. 9. hx CAD, s/p PCI x 3 10. Peripheral vascular disease. 11. Hypertension. 12. Diabetes. 13. Hyperlipidemia. 14. Reported asthma. 15. Hx mental delay. 16. Pleural effusions moderate. s/p right thoracentesis 17. stage II decubitus ulcer sacral, present on admit Some IVF low dose -follow UOP, lytes/creatinine -diuretics , follow UOP. IVF Dextrose with diuresis and follow sodium Consider US thoracentesis on Saturday (would hold lovenox) Oxygen per protocol NGT, tube feeds --follow with swallow therapist. NPO for now continue rate control as per Cardiology Antibiotics in the interim. continue glycemic control further if needed dc kelsea in 1-2 days? HIT pending, hold lovenox PT consult Thank you very much, Dr. Townsend, for allowing me a chance to participate in the care of Mr. Brewer. Please call for questions.
[2019-08-15] MEDS: DEXTROSE 5% 1,000 ML IV SCH (17:36)
[2019-08-15] MEDS ORDERED: FUROSEMIDE INJ 10 MG/ML 4 ML VIAL IV ONE (18:00)
[2019-08-15] MEDS: INSULIN GLARGINE 100 UNITS/ML VIAL SQ SCH (20:20)
[2019-08-16] VITALS (23 sets, daily range): BP systolic 85–128; BP diastolic 62–94
[2019-08-16 05:28] LABS: BASOPHILS % 0.2 % (0.0-1.0); EOSINOPHILS # (AUTO) 0.1 (0.0-0.4); HEMATOCRIT 34.1 % (38.2-49.6); HEMOGLOBIN 10.8 g/dL (14.0-18.0); LYMPHOCYTES % 15.6 % (18.0-39.1); MEAN CORPUSCULAR HEMOGLOBIN 24.9 pg (28-32); MEAN CORPUSCULAR HGB CONC 31.7 g/dL (31-35); MEAN CORPUSCULAR VOLUME 78.6 fL (81-99); MONOCYTES # (AUTO) 0.6 (0.2-0.8); MONOCYTES % 10.5 % (4.4-11.3); NEUTROPHILS # (AUTO) 4.3 (2.1-6.9); NEUTROPHILS % 69.9 % (38.7-80.0); PLATELET COUNT 107 x10e3/uL (140-360); RED BLOOD COUNT 4.34 x10e6/uL (4.3-5.7); RED CELL DISTRIBUTION WIDTH 19.6 % (11.7-14.4)
[2019-08-16] MEDS: INSULIN REGULAR, HUMAN 100 UNIT/1 ML 3ML VIAL SQ SCH ×4 (05:39→21:16)
[2019-08-16 05:51] LABS: ALBUMIN 2.3 g/dL (3.5-5.0); ALBUMIN/GLOBULIN RATIO 0.8 (0.8-2.0); ANION GAP 15.7 mmol/L (8-16); CREATININE, SERUM 1.97 mg/dL (0.72-1.25); MAGNESIUM 1.8 MG/DL (1.3-2.1); PHOSPHORUS 3.5 MG/DL (2.3-4.7); POTASSIUM 3.7 mmol/L (3.5-5.1)
--- NOTE | 2019-08-16 06:33 | Diagnostic Imaging Report ---
EXAMINATION: CHEST SINGLE (PORTABLE) INDICATION: CHF. COMPARISON: Chest radiograph 08/14/2019. FINDINGS: LINES/TUBES:Overlying EKG leads. Interval removal of enteric tube. LUNGS/PLEURA:The lungs are moderately inflated. There is perihilar fullness and indistinctness of the pulmonary vasculature, slightly improved. Hazy opacities in the lower lungs. No evidence of pneumothorax. Small bilateral pleural effusions. MEDIASTINUM:Cardiomediastinal silhouette is enlarged. Atherosclerotic calcifications of the thoracic aorta. BONES/SOFT TISSUES:No acute osseous injury. ABDOMEN:No free air under the diaphragm. IMPRESSION: Cardiomegaly and slightly improved pulmonary edema. Small bilateral pleural effusions with lower lung zone opacities, likely atelectasis. Interval removal of enteric tube. Signed by: Dr. Jordan Dutta MD on 08/16/2019 6:30 AM
[2019-08-16] MEDS: MIDODRINE HCL 5 MG TABLET PO SCH ×3 (08:00→17:42)
[2019-08-16] MEDS ORDERED: FUROSEMIDE INJ 10 MG/ML 4 ML VIAL IV SCH (09:00)
--- NOTE | 2019-08-16 09:45 | NUR ---
INFECTIOUS DISEASE PROGRESS NOTE 08/16/19 CC: SOB SUBJECTIVE: Mr. Brewer remains in ICU. He is comfortable still, but confused, still weak. s/p intubation and thoracentesis REVIEW OF SYSTEMS: per RN, stable, remains confused OBJECTIVE: VITAL SIGNS: Stable, afebrile. GENERAL: weak, debilitated HEENT: He is not icteric. NECK: Supple. no JVD CHEST: Decreased breath sounds HEART: S1 and S2. No S3, S4, or murmur. ABDOMEN: Soft. Bowel sounds present. EXTREMITIES: No edema. SKIN: No rash. IMPRESSION: 1. Community-acquired pneumonia 2. Respiratory failure, resolved 3. Debility 4. Shock Liver 5. UTI, history 6. HTN 7. Pleural Effusions s/p thoracentesis 8. Stage 2 Decubitus ulcer 9. Sepsis PLAN: 08/16/19: Possible thoracentesis tomorrow. Continue Rocephin. HIT panel pending, with Heparin on hold. Await final pleural fluid culture results. Supportive care per ICU team. DISCUSSED WITH DR. BESS
[2019-08-16] MEDS: ASPIRIN 81 MG CHEW TAB PO SCH (10:47)
[2019-08-16] MEDS: METOPROLOL TARTRATE 50 MG TAB PO SCH ×2 (10:47→17:45)
[2019-08-16] MEDS: AMIODARONE HCL 200 MG TAB PO SCH ×3 (10:47→21:15)
--- NOTE | 2019-08-16 10:51 | NUR ---
Reported to Dr. Townsend per handoff patient had removed the NGT, and he is requesting to eat and he is pounding bilateral hand on the bed, I informed per speech recommendations patient to be NPO, until Saturday when speech pathology determines appropriate diet. Received orders give him pudding and monitor patient. Notified ICU charge nurse, who spoke with to request order for NGT placement for nutrition no new orders received.
[2019-08-16] MEDS ORDERED: METOPROLOL TARTRATE INJ 1 MG/ML VIAL IV PRN (11:00)
[2019-08-16] MEDS: CEFTRIAXONE SOD 2 GM/NS 100 ML 100 ML IV SCH (11:14)
--- NOTE | 2019-08-16 17:28 | NUR ---
Pulmonary Medicine DATE 08/16/2019 SUBJECTIVE: 100% sat RA fio2 d5w at 100/hr lost iv access, patient pulled iv CXR with improving fluid overload REVIEW OF SYSTEMS: Cannot get, poor voice PHYSICAL EXAMINATION: VITAL SIGNS: vital signs noted per record. GENERAL: Pale, weak in bed HEENT: Normocephalic, atraumatic. NECK: Supple. Throat midline. LUNGS: Bilateral air entry is limited, decreased breath sounds. CARDIOVASCULAR: S1 and S2. No murmurs, rubs, or gallops. ABDOMEN: Soft and nontender. EXTREMITIES: No clubbing. No cyanosis. 1+ edema. INTEGUMENT: No rash. No purpura. LABORATORY DATA: Na 136, k 3.7, bun 52, cr 1.97, 6 wbc, hct 34, plt 107 IMPRESSION AND PLAN: 1. Acute respiratory failure, intubated/extubated 2. Shock, septic. Resolved 3. Acute kidney failure. Resolving CKD stage III? 4. Acute liver failure, shock liver +/- other. Continued elevation 5. Atrial fibrillation with rapid ventricular rate, better? 6. Abnormal chest radiography, fluid overload component. BNP 1000. 6. Abnormal chest radiography, treat for pneumonia. 7. UTI complicated 8. Elevated alkaline phosphatase and elevated total bilirubin. 9. hx CAD, s/p PCI x 3 10. Peripheral vascular disease. 11. Hypertension. 12. Diabetes. 13. Hyperlipidemia. 14. Reported asthma. 15. Hx mental delay. 16. Pleural effusions moderate. s/p right thoracentesis 17. stage II decubitus ulcer sacral, present on admit Continue IVF Dextrose low dose -consider starting PPN or procalamine tomorrow based on progress -consider early PEG tube placement if patient remains far away from oral eating. NPO for now. Continue diuretics, follow UOP. -hopefully doesnt need a thoracentesis tomorrow, repeat another CXR. Todays CXR is improving well (would hold lovenox) Oxygen per protocol Continue rate control as per Cardiology Antibiotics in the interim per ID. continue glycemic control further if needed Consider dc kelsea soon HIT pending, hold lovenox PT consult Thank you very much, Dr. Townsend, for allowing me a chance to participate in the care of Mr. Brewer. Please call for questions.
[2019-08-16] MEDS: DEXTROSE 5% 1,000 ML IV SCH (18:15)
[2019-08-16] MEDS: INSULIN GLARGINE 100 UNITS/ML VIAL SQ SCH (21:15)
[2019-08-16] MEDS: FUROSEMIDE INJ 10 MG/ML 4 ML VIAL IV SCH (21:15)
[2019-08-17] VITALS (26 sets, daily range): BP systolic 85–137; BP diastolic 49–89
[2019-08-17] MEDS: METOPROLOL TARTRATE INJ 1 MG/ML VIAL IV PRN ×2 (01:52→21:35)
[2019-08-17] MEDS: DEXTROSE 50% SYRINGE 50 ML IV PRN (05:15)
[2019-08-17] MEDS: INSULIN REGULAR, HUMAN 100 UNIT/1 ML 3ML VIAL SQ SCH ×3 (05:36→17:22)
--- NOTE | 2019-08-17 06:52 | Diagnostic Imaging Report ---
EXAMINATION: CHEST SINGLE (PORTABLE) INDICATION: CHF. COMPARISON: Chest radiograph 08/16/2019. FINDINGS: LINES/TUBES:Overlying EKG leads. LUNGS/PLEURA:The lungs are moderately inflated. There is increasing perihilar fullness and indistinctness of the pulmonary vasculature. Hazy opacities in the lower lungs. No evidence of pneumothorax. Small bilateral pleural effusions. MEDIASTINUM:Cardiomediastinal silhouette is enlarged. Atherosclerotic calcifications of the thoracic aorta. BONES/SOFT TISSUES:No acute osseous injury. ABDOMEN:No free air under the diaphragm. IMPRESSION: Cardiomegaly and increased pulmonary edema. Small bilateral pleural effusions with lower lung zone opacities, likely atelectasis, although infection is possible in the appropriate clinical setting. Signed by: Dr. Jordan Dutta MD on 08/17/2019 6:49 AM
[2019-08-17] MEDS: MIDODRINE HCL 5 MG TABLET PO SCH ×3 (07:46→14:50)
[2019-08-17] MEDS: AMIODARONE HCL 200 MG TAB PO SCH ×3 (08:10→20:41)
[2019-08-17] MEDS: ASPIRIN 81 MG CHEW TAB PO SCH (08:10)
[2019-08-17] MEDS: FUROSEMIDE INJ 10 MG/ML 4 ML VIAL IV SCH ×2 (08:10→20:41)
[2019-08-17] MEDS: METOPROLOL TARTRATE 50 MG TAB PO SCH ×2 (08:11→16:36)
--- NOTE | 2019-08-17 09:23 | NUR ---
INFECTIOUS DISEASE PROGRESS NOTE CC: SOB SUBJECTIVE: Mr. Brewer remains in ICU. He is comfortable still, but confused, still weak. s/p intubation and thoracentesis REVIEW OF SYSTEMS: per RN, stable, remains confused OBJECTIVE: VITAL SIGNS: Stable, afebrile. GENERAL: weak, debilitated, Alert HEENT: He is not icteric. NECK: Supple. no JVD CHEST: Decreased breath sounds HEART: S1 and S2. No S3, S4, or murmur. ABDOMEN: Soft. Bowel sounds present. EXTREMITIES: No edema. SKIN: No rash. IMPRESSION: 1. Community-acquired pneumonia 2. Respiratory failure, resolved 3. Debility 4. Shock Liver 5. UTI, history 6. HTN 7. Pleural Effusions s/p thoracentesis 8. Stage 2 Decubitus ulcer 9. Sepsis 10. Aspiration pneumonia RADIOLOGY: IMPRESSION: Cardiomegaly and increased pulmonary edema. Small bilateral pleural effusions with lower lung zone opacities, likely atelectasis, although infection is possible in the appropriate clinical setting. LABS: REVIEWED PLAN: 08/17/19: MBS scheduled for today. Patient alert today, communicating. HIT panel pending. Aspiration pneumonia suspected along with pulmonary edema. Will change to Cefepime and Flagyl. Afebrile and Leukocytosis resolved 08/16/19: Possible thoracentesis tomorrow. Continue Rocephin. HIT panel pending, with Heparin on hold. Await final pleural fluid culture results. Supportive care per ICU team. DISCUSSED WITH DR. BESS
[2019-08-17] MEDS ORDERED: DIGOXIN INJ 0.25 MG/ML 2 ML AMP IV SCH (10:45)
--- NOTE | 2019-08-17 12:52 | NUR ---
Pulmonary Medicine DATE 08/17/2019 SUBJECTIVE: kelsea ivf 40/hr d5w RA fio2 99% sat 2 person max bed mobility and sitting EOB. sat for <2 mins CXR stable overload/effusion REVIEW OF SYSTEMS: Cannot get, poor voice PHYSICAL EXAMINATION: VITAL SIGNS: vital signs noted per record. GENERAL: Pale, weak in bed HEENT: Normocephalic, atraumatic. NECK: Supple. Throat midline. LUNGS: Bilateral air entry is limited, decreased breath sounds. CARDIOVASCULAR: S1 and S2. No murmurs, rubs, or gallops. ABDOMEN: Soft and nontender. EXTREMITIES: No clubbing. No cyanosis. 1+ edema. INTEGUMENT: No rash. No purpura. LABORATORY DATA: 08/16/19 : k 3.7, co2 30, cr 1.97. wbc 6.1, hct 34, plt 107. IMPRESSION AND PLAN: 1. Acute respiratory failure, intubated/extubated 2. Shock, septic. Resolved 3. Acute kidney failure. Resolving CKD stage III? 4. Acute liver failure, shock liver +/- other. Continued elevation 5. Atrial fibrillation with rapid ventricular rate, better? 6. Abnormal chest radiography, fluid overload component. BNP 1000. 6. Abnormal chest radiography, treat for pneumonia. 7. UTI complicated 8. Elevated alkaline phosphatase and elevated total bilirubin. 9. hx CAD, s/p PCI x 3 10. Peripheral vascular disease. 11. Hypertension. 12. Diabetes. 13. Hyperlipidemia. 14. Reported asthma. 15. Hx mental delay. 16. Pleural effusions moderate. s/p right thoracentesis 17. stage II decubitus ulcer sacral, present on admit Continue IVF Dextrose low dose -ST following. possible MBS today -consider starting PPN or procalamine today based on progress -consider early PEG tube placement if patient remains far away from safe oral feeds. NPO for now. Continue diuretics, follow UOP. -doesnt need another thoracentesis? Oxygen per protocol Continue rate control as per Cardiology Antibiotics in the interim per ID. continue glycemic control further if needed Consider dc kelsea soon HIT pending, hold lovenox PT follow up Thank you very much, Dr. Townsend, for allowing me a chance to participate in the care of Mr. Brewer. Please call for questions.
[2019-08-17] MEDS: METRONIDAZOLE 500MG/NS 100ML 100 ML IV SCH ×2 (13:59→23:03)
[2019-08-17] MEDS: DEXTROSE 5% 1,000 ML IV SCH (16:35)
[2019-08-17] MEDS: CEFEPIME 1GM/NS 0.9% 50 ML 50 ML IV SCH (16:35)
[2019-08-17] MEDS ORDERED: CEFEPIME HCL 1 GM VIAL IV SCH (17:00)
[2019-08-17] MEDS: INSULIN GLARGINE 100 UNITS/ML VIAL SQ SCH (20:13)
[2019-08-18] VITALS (24 sets, daily range): BP systolic 87–127; BP diastolic 61–94
[2019-08-18 05:22] LABS: BASOPHILS % 0.5 % (0.0-1.0); EOSINOPHILS # (AUTO) 0.2 (0.0-0.4); EOSINOPHILS % 2.7 % (0.0-6.0); HEMATOCRIT 32.9 % (38.2-49.6); HEMOGLOBIN 10.3 g/dL (14.0-18.0); LYMPHOCYTES # (AUTO) 0.9 (1.0-3.2); LYMPHOCYTES % 15.5 % (18.0-39.1); MEAN CORPUSCULAR HEMOGLOBIN 25.1 pg (28-32); MEAN CORPUSCULAR HGB CONC 31.3 g/dL (31-35); MONOCYTES # (AUTO) 0.5 (0.2-0.8); MONOCYTES % 8.7 % (4.4-11.3); NEUTROPHILS # (AUTO) 3.9 (2.1-6.9); NEUTROPHILS % 70.3 % (38.7-80.0); PLATELET COUNT 115 x10e3/uL (140-360); RED BLOOD COUNT 4.11 x10e6/uL (4.3-5.7); RED CELL DISTRIBUTION WIDTH 19.8 % (11.7-14.4)
[2019-08-18] MEDS: INSULIN REGULAR, HUMAN 100 UNIT/1 ML 3ML VIAL SQ SCH ×4 (05:27→18:00)
[2019-08-18] MEDS: METRONIDAZOLE 500MG/NS 100ML 100 ML IV SCH ×3 (05:27→22:00)
[2019-08-18 05:34] LABS: INR 1.02
[2019-08-18 05:35] LABS: PARTIAL THROMBOPLASTIN TIME 30.3 seconds (23.8-35.5)
[2019-08-18 05:56] LABS: ALBUMIN 2.3 g/dL (3.5-5.0); ALBUMIN/GLOBULIN RATIO 0.9 (0.8-2.0); ANION GAP 15.4 mmol/L (8-16); CALCIUM 8.4 mg/dL (8.4-10.2); CREATININE, SERUM 1.55 mg/dL (0.72-1.25); POTASSIUM 3.4 mmol/L (3.5-5.1)
[2019-08-18] MEDS: MIDODRINE HCL 5 MG TABLET PO SCH ×3 (08:00→14:54)
[2019-08-18] MEDS: AMIODARONE HCL 200 MG TAB PO SCH ×3 (08:20→21:00)
[2019-08-18] MEDS: ASPIRIN 81 MG CHEW TAB PO SCH (08:20)
[2019-08-18] MEDS: METOPROLOL TARTRATE 50 MG TAB PO SCH ×2 (08:21→16:02)
[2019-08-18] MEDS: FUROSEMIDE INJ 10 MG/ML 4 ML VIAL IV SCH ×2 (08:25→21:00)
--- NOTE | 2019-08-18 09:43 | Diagnostic Imaging Report ---
EXAM: MODIFIED BA. SWALLOW DATE: 08/17/2019 8:46 AM INDICATION: Aspiration Fluoroscopy Time: 2.3 min. Reference Air Kerma (Ka, r): 8.05 mGy. FINDINGS/IMPRESSION: Modified barium swallow was performed by the speech pathologist. The radiologist was not present for the examination. Provided images demonstrate subglottic tracheal aspiration of contrast material. Please refer to speech pathology notes for further details. Signed by: Dr. Magdy Ji MD on 08/18/2019 9:39 AM
--- NOTE | 2019-08-18 10:12 | NUR ---
INFECTIOUS DISEASE PROGRESS NOTE CC: SOB SUBJECTIVE: Mr. Brewer remains in ICU. He is comfortable still, but confused, still weak. s/p intubation and thoracentesis REVIEW OF SYSTEMS: per RN, stable, remains confused OBJECTIVE: VITAL SIGNS: Stable, afebrile. GENERAL: weak, debilitated, Alert HEENT: He is not icteric. NECK: Supple. no JVD CHEST: Decreased breath sounds HEART: S1 and S2. No S3, S4, or murmur. ABDOMEN: Soft. Bowel sounds present. EXTREMITIES: No edema. SKIN: No rash. RADIOLOGY: IMPRESSION: Cardiomegaly and increased pulmonary edema. Small bilateral pleural effusions with lower lung zone opacities, likely atelectasis, although infection is possible in the appropriate clinical setting. FINDINGS/IMPRESSION: Modified barium swallow was performed by the speech pathologist. The radiologist was not present for the examination. Provided images demonstrate subglottic tracheal aspiration of contrast material. Please refer to speech pathology notes for further details. LABS: REVIEWED IMPRESSION: 69 year old male with known CAD and previous stents, CHF, admitted with increasing SOB. No fever, no leukocytosis. Patient previously on vent support, n ow extubated. PMH: metal delay, CKD, CAD with previous PCI to LAD, PVD, HTN, dyslipidemia, asthma, previous cataract surgery, and cardiomyopathy. 1. Community-acquired pneumonia 2. Respiratory failure, resolved 3. Debility 4. Shock Liver 5. UTI, history 6. HTN 7. Pleural Effusions s/p thoracentesis 8. Stage 2 Decubitus ulcer 9. Sepsis 10. Aspiration pneumonia PLAN: 08/18/19: MBS performed, patient failed consistencies. PEG tube placement planned for today. Speech to continue to work with patient. On Cefepime and Flagyl. Afebrile, without leukocytosis. Supportive care per ICU team 08/17/19: MBS scheduled for today. Patient alert today, communicating. HIT panel pending. Aspiration pneumonia suspected along with pulmonary edema. Will change to Cefepime and Flagyl. Afebrile and Leukocytosis resolved 08/16/19: Continue Rocephin. HIT panel pending, with Heparin on hold. Await final pleural fluid culture results. Supportive care per ICU team. DISCUSSED WITH DR. BESS
[2019-08-18] MEDS ORDERED: DIGOXIN INJ 0.25 MG/ML 2 ML AMP IV ONE (11:55)
--- NOTE | 2019-08-18 12:40 | NUR ---
ST Note: Attempted to see pt for dysphagia therapy. Pt leaving for procedure. Will f/u as able.
--- NOTE | 2019-08-18 12:55 | NUR ---
Pulmonary Medicine DATE 08/18/2019 SUBJECTIVE: enamorado in place RA fio2 99% saturation MBS failed all consistencies i am told voice mildly stronger today REVIEW OF SYSTEMS: Cannot get, poor voice PHYSICAL EXAMINATION: VITAL SIGNS: vital signs noted per record. GENERAL: Pale, weak in bed HEENT: Normocephalic, atraumatic. NECK: Supple. Throat midline. LUNGS: Bilateral air entry is limited, decreased breath sounds. CARDIOVASCULAR: S1 and S2. No murmurs, rubs, or gallops. ABDOMEN: Soft and nontender. EXTREMITIES: No clubbing. No cyanosis. 1+ edema. INTEGUMENT: No rash. No purpura. LABORATORY DATA: k 3.4, cr 1.56, wbc 5.6, plt 115, hct 32. IMPRESSION AND PLAN: 1. Acute respiratory failure, intubated/extubated 2. Shock, septic. Resolved 3. Acute kidney failure. Resolving CKD stage III? 4. Acute liver failure, shock liver +/- other. Continued elevation 5. Atrial fibrillation with rapid ventricular rate, better? 6. Abnormal chest radiography, fluid overload component. BNP 1000. 6. Abnormal chest radiography, treat for pneumonia. 7. UTI complicated 8. Elevated alkaline phosphatase and elevated total bilirubin. 9. hx CAD, s/p PCI x 3 10. Peripheral vascular disease. 11. Hypertension. 12. Diabetes. 13. Hyperlipidemia. 14. Reported asthma. 15. Hx mental delay. 16. Pleural effusions moderate. s/p right thoracentesis 17. stage II decubitus ulcer sacral, present on admit Continue IVF Dextrose low dose -ST following. Continue treatment for dysphagia -get PEG tube today Continue diuretics, follow UOP. -doesn't need another thoracentesis? Oxygen per protocol Continue rate control as per Cardiology Antibiotics per ID. continue glycemic control further if needed Consider dc enamorado soon HIT negative, restart lovenox when ok by GI PT follow up Thank you very much, Dr. Townsend, for allowing me a chance to participate in the care of Mr. Brewer. Please call for questions.
[2019-08-18] MEDS ORDERED: POTASSIUM CHLORIDE 20MEQ/100ML 100 ML IV ONE (13:00)
--- NOTE | 2019-08-18 14:07 | Operative Report ---
DATE OF PROCEDURE: 08/18/2019 SURGEON: Jeffery Campbell MD PROCEDURE: EGD and PEG tube insertion note. INDICATIONS FOR PROCEDURE: Oropharyngeal dysphagia, abnormal modified barium swallow. MEDICATIONS: The patient was done under MAC. Please see anesthesiologist's note. PROCEDURE IN DETAIL: With the patient in the supine position, a flexible fiberoptic Olympus gastroscope was introduced into the esophagus under direct visualization without any difficulty. There was some patchy erythema noted in distal esophagus. The scope was then advanced with ease into the stomach traversing a small hiatal hernia. The mucosa overlying the antrum and the body revealed some patchy erythema and low-grade edema. Pylorus was of normal contour and shape. It was intubated with ease and the scope was advanced all the way to the second portion of the duodenum. The scope was then withdrawn slowly. Mucosa overlying the proximal second portion and then duodenal bulb appeared to be within normal limits. The scope was then withdrawn back into the stomach and retroflexed and the mucosa overlying the fundus appeared to be within normal limits. The small hiatal hernia was also noted in the retroflexed position. The scope was then straightened out and after transabdominal illumination and external digital palpation, a safe entry point was delineated and PEG tube insertion was carried out in the usual fashion. The scope was subsequently withdrawn after documenting a good positioning of the intragastric bumper. The patient tolerated the procedure well. IMPRESSION: 1. Distal esophagitis, mild. 2. Small hiatal hernia. 3. Gastritis, mild. 4. PEG tube insertion, carried out in usual fashion. The patient tolerated procedure well. PLAN: G-tube to drain to gravity x24 hours and a Orellana bag then can use. Abdominal binder. Jeffery Campbell MD [facility] [place] /[id number] cc: Bartolo Townsend MD
--- NOTE | 2019-08-18 14:21 | NUR ---
Nutrition Intervention Note RD Recommendation(s) for Physician: - Recommend Glucerna 1.2 @ goal rate of 60 mL/hr. Water flushes and fluid management per MD. (provides 1728 kcal, 86 g protein, and 1159 mL water) Plan of Care: RD following, monitoring for tolerance and adequacy, TF rec Nutrition reason for involvement: follow up RD Assessment 08/17: Follow up. Pt out of room at time of visit for PEG placement. Pt with MBS yesterday showing signs of aspiration. TF rec's discussed with RN on unit. Chart reviewed. Will continue to monitor. 08/13: Follow up. Pt was extubated yesterday. CHIEF PROGRAM OFFICER evaluated pt today and recommended that pt remain NPO and consider NGT for nutrition. Will continue to monitor. 08/10: Follow up. Pt remains intubated, currently on pressor support of Levophed. Pt continues on TF via OGT of Glucerna 1.2- not appropriate TF for pressor use and not able to meet protein needs. TF held yesterday 2/2 tube feeding colored liquid noted during suctioning per chart. Noted total of 400 ml tube feed given since yesterday. Plan to wean Levophed today per chart. Attempted to call RN x 2 to discuss TF rec's, RN not available. TF rec's for Vital AF remain appropriate. Will continue to monitor. 08/07: 69yo M, who is admitted for acute respiratory failure, on mechanical ventilator support. Pt is currently on droplet isolation and no family on bedside. Per RN, pt is on Levophed @11mcg/min and Glucerna 1.2 @20mL/hr. Pt has not started on HD. Rec to keep trickle feeding until pt is more hemodynamically stable. Please consult for TF recommendation if pts status changed. Principal Problems/Diagnoses: Respiratory failure, on mechanical ventilator support. PMH: Mental delay, history of transient dialysis in June 2019, August 2017, heart catheterization with PCI to LAD, peripheral vascular disease with right ICA 57% ultrasonographic blockage in November 2018, hypertension, diabetes, hyperlipidemia, asthma, bilateral cataract surgery, PCI x3 GI: LBM 08/17 Skin: Stage II sacral ulcer Labs: 08/17: Na 137, K 3.4, BUN 44, Cr 1.55, Gluc 87, POC Gluc 82-95 08/13: Na 133, BUN 54, Creat 2.08, Ca 8.3, Total Bili 2.2, AST 66, ALT 111 08/10: Na 135, K 3.4, BUN 54, Cr 2.53, Gluc 164, POC Gluc 175-242 Meds: lasix, abx, insulin, digoxin, amiodarone, lantus, KCl IVPB Ht: 67in Wt: 182 lb BMI: 28.5kg/m2 IBW: 148lb +/- 10% Malnutrition Evaluation (08/08/2019) Unable to assess at this time. Will re-evaluate at follow-up as appropriate. Nutrition Prescription (Diet Order): NPO Estimated Nutritional Needs: Calories: 1655 2068 kcal (20-25kcal/kg/d) Weight used: 82.7 kg (182 lbs) Protein: 83 124g (1-1.5g/kg/d) Weight used: 82.7 kg (182 lbs) Diet Adequacy: Not meeting calorie needs, Not meeting protein needs- NPO Tolerance: pending, previously tolerating TF Diet Education Needs Assessment: Diet education not indicated, patient on temporary/transition diet. Nutrition Care Level: Moderate Nutrition Diagnosis: Inadequate oral intake related to current medical status as evidenced by pt requiring EN as main source of nutrition. Goal: Patient will meet 75-100% of estimated needs by follow up Progress: not progressing Interventions: Composition, Rate, Route Monitoring/Evaluation: Total energy intake, Total protein intake, Formula/Solution, Weight change Signed: Sheryl Mccartney RD, LD, [facility]
[2019-08-18] MEDS ORDERED: PROPOFOL IV EMULSION 10 MG/ML 20 ML VIAL ONE (14:59)
[2019-08-18] MEDS ORDERED: LIDOCAINE HCL 2% LOCAL INJ 5 ML SDV VIAL INJ ONE (14:59)
[2019-08-18] MEDS: CEFEPIME 1GM/NS 0.9% 50 ML 50 ML IV SCH (16:02)
--- NOTE | 2019-08-18 17:49 | NUR ---
pt pulled peg tube out, notified dr hilton instructed to replace with enamorado, completed as instructed and notified him and dr mak. kub being done now
--- NOTE | 2019-08-18 18:24 | NUR ---
notified brother vannesa of current situation.
--- NOTE | 2019-08-18 18:52 | Diagnostic Imaging Report ---
EXAM: Abdomen Radiograph 1 View(s) INDICATION: ^s/p pegtube self removal and replaced with enamorado,bulb check ^[id number] ^[id number] COMPARISON: None FINDINGS: Enamorado catheter and peg tube are not seen. No abnormalities in the lower chest. The bowel loops are unremarkable with no dilatation or signs of obstruction. No pneumoperitoneum. No abnormal abdominal calcifications. No acute osseous abnormality. IMPRESSION: No acute abdominal radiographic abnormality. Signed by: Omari Dutta MD on 08/18/2019 6:49 PM
[2019-08-18] MEDS: DEXTROSE 5% 1,000 ML IV SCH (20:00)
--- NOTE | 2019-08-18 20:00 | NUR ---
Notified Dr Campbell on the kub results, patient scheduled for a peg tube reinsertion tomorrow. Consent obtained from the brother. Patient stable but with episodes of confusion, remains on restraints
[2019-08-18] MEDS: INSULIN GLARGINE 100 UNITS/ML VIAL SQ SCH (21:00)
[2019-08-19] VITALS (22 sets, daily range): BP systolic 94–134; BP diastolic 60–91
[2019-08-19] MEDS: METOPROLOL TARTRATE INJ 1 MG/ML VIAL IV PRN ×2 (02:00→22:20)
[2019-08-19] MEDS: METRONIDAZOLE 500MG/NS 100ML 100 ML IV SCH ×3 (05:34→21:17)
[2019-08-19] MEDS: INSULIN REGULAR, HUMAN 100 UNIT/1 ML 3ML VIAL SQ SCH ×5 (06:00→20:28)
--- NOTE | 2019-08-19 06:19 | Diagnostic Imaging Report ---
EXAMINATION: CHEST SINGLE (PORTABLE) INDICATION: ^chf ^[id number] ^[id number] COMPARISON: 08/17/2019 FINDINGS: AP view TUBES and LINES: None. LUNGS: Unchanged mild pulmonary edema. No new focal consolidation. PLEURA: Probable small bilateral pleural effusions are unchanged. HEART AND MEDIASTINUM: Unchanged enlarged cardiac silhouette. Unchanged fullness of the pulmonary vasculature. BONES AND SOFT TISSUES: No acute osseous lesion. Soft tissues are unremarkable. UPPER ABDOMEN: No free air under the diaphragm. IMPRESSION: Unchanged cardiomegaly with mild pulmonary edema again suggestive of decompensated heart failure. Signed by: Sotero Faustin MD on 08/19/2019 6:16 AM
[2019-08-19] MEDS: MIDODRINE HCL 5 MG TABLET PO SCH (07:53)
[2019-08-19] MEDS: AMIODARONE HCL 200 MG TAB PO SCH ×3 (08:32→20:30)
[2019-08-19] MEDS: METOPROLOL TARTRATE 50 MG TAB PO SCH ×2 (08:32→17:00)
[2019-08-19] MEDS: ASPIRIN 81 MG CHEW TAB PO SCH (08:32)
[2019-08-19] MEDS: FUROSEMIDE INJ 10 MG/ML 4 ML VIAL IV SCH ×2 (09:00→20:35)
--- NOTE | 2019-08-19 11:30 | NUR ---
ST Note: Pt NPO for replacement of PEG. Will f/u tomorrow 08/20/19.
--- NOTE | 2019-08-19 12:58 | NUR ---
Pulmonary Medicine DATE 08/19/2019 SUBJECTIVE: enamorado in place RA fio2 IVF 40/hr PEG placed yesterday, then pulled by patient REVIEW OF SYSTEMS: Cannot get, poor voice PHYSICAL EXAMINATION: VITAL SIGNS: vital signs noted per record. GENERAL: alert, tries to talk but with poor voice. weak HEENT: Normocephalic, atraumatic. NECK: Supple. Throat midline. LUNGS: Bilateral air entry is limited, decreased breath sounds. CARDIOVASCULAR: S1 and S2. No murmurs, rubs, or gallops. ABDOMEN: Soft and nontender. EXTREMITIES: No clubbing. No cyanosis. 1+ edema. INTEGUMENT: No rash. No purpura. LABORATORY DATA: no new updates IMPRESSION AND PLAN: 1. Acute respiratory failure, intubated/extubated 2. Shock, septic. Resolved 3. Acute kidney failure. Resolving CKD stage III? 4. Acute liver failure, shock liver +/- other. Continued elevation 5. Atrial fibrillation with rapid ventricular rate, better? 6. Abnormal chest radiography, fluid overload component. BNP 1000. 6. Abnormal chest radiography, treat for pneumonia. 7. UTI complicated 8. Elevated alkaline phosphatase and elevated total bilirubin. 9. hx CAD, s/p PCI x 3 10. Peripheral vascular disease. 11. Hypertension. 12. Diabetes. 13. Hyperlipidemia. 14. Reported asthma. 15. Hx mental delay. 16. Pleural effusions moderate. s/p right thoracentesis 17. stage II decubitus ulcer sacral, present on admit 18. dysphagia, s/p peg and peg dislodgement Continue IVF Dextrose low dose Continue training with ST -get PEG tube replacement today Continue diuretics, follow UOP. -suspect he will not need another thoracentesis... contralateral thoracentesis with 600 cc only and CXR is improving Oxygen per protocol Continue rate control as per Cardiology Antibiotics per ID. continue glycemic control further if needed Consider dc enamorado soon HIT negative, restart lovenox when ok by GI PT follow up Thank you very much, Dr. Townsend, for allowing me a chance to participate in the care of Mr. Brewer. Please call for questions.
--- NOTE | 2019-08-19 13:06 | NUR ---
Patient is off unit. He was transferred to OR by OR staff for reinsertion of his PEG tube.
--- NOTE | 2019-08-19 14:00 | NUR ---
Patient returned to ICU room 190. He is drowsy but easily arousable at time of arrival. He is on 2 L o2 via nasal cannula. Peg insertion site is CDI, abdominal binder is applied. Abdomen is soft. No oral bleeding is noted. Peg tube connected to Orellana catheter bag to gravity for possible drainage. OK to use PEG tube in 12 hours (0200 AM).
--- NOTE | 2019-08-19 15:00 | NUR ---
Patient placed on room air, o2 saturation remains stable. No s/s of respiratory distress noted.
[2019-08-19] MEDS: DEXTROSE 5% 1,000 ML IV SCH (16:15)
--- NOTE | 2019-08-19 16:26 | Progress Note ---
DATE: SUBJECTIVE: Mr. Brewer had a feeding tube, but apparently he pulled it out. The patient had to go again today for placement of a new tube. The patient remain confused. He has Orellana. He is on IV fluid 40 mL an hour. He is little bit confused. PHYSICAL EXAMINATION: GENERAL: Alert, confused, weak. VITAL SIGNS: Stable, afebrile. HEENT: He is not icteric. NECK: Supple. CHEST: Few crackles at the bases. HEART: S1 and S2. No S3, S4, or murmurs. ABDOMEN: Soft. Bowel sounds present. No tenderness. EXTREMITIES: No edema. SKIN: No rash. IMPRESSION: 1. Status post sepsis, status post pneumonia. 2. Altered mental status and metabolic encephalopathy. 3. Debility. 4. Status post sepsis and septic shock. 5. Acute kidney injury on chronic kidney disease, stage 3. 6. Acute liver failure shocky liver, seems to be better. 7. History of diabetes mellitus, neuropathy, history of hypertension. 8. Status post PEG tube had to be replaced because the patient pulled it. 9. From Infectious Disease point of view, the patient is currently stable. He is currently on metronidazole and cefepime for aspiration pneumonia. Plan to give him 7 days. Recent chest x-ray was done showed cardiomegaly. 10. Can discontinue his antibiotics soon. We will follow. MD HOLLY Pena/DANA /[id number]
[2019-08-19] MEDS: CEFEPIME 1GM/NS 0.9% 50 ML 50 ML IV SCH (17:30)
--- NOTE | 2019-08-19 18:22 | Operative Report ---
DATE OF PROCEDURE: 08/19/2019 SURGEON: Jeffery Campbell MD PROCEDURES: EGD with PEG tube replacement. INDICATIONS FOR PROCEDURE: The patient is status post PEG tube insertion. G-tube was dislodged. The patient is in for an EGD and PEG tube replacement. MEDICATIONS: The patient was done under MAC, please see anesthesiologist's note. PROCEDURE IN DETAIL: With the patient in the supine position, the flexible fiberoptic Olympus gastroscope was introduced into the esophagus under direct visualization without any difficulty. There was some patchy erythema noted in distal esophagus. The scope was then advanced with ease into the stomach. Mucosa overlying the antrum and the body revealed some patchy areas of erythema. The previous G-tube site was noted. An attempt was made to insert a wire through the old GT stump and that was unsuccessful. PEG tube replacement was carried out through the same G-tube stoma, but had a different gastric exit site. The scope was subsequently withdrawn after documenting a good positioning of the intragastric bumper. The patient tolerated the procedure well. IMPRESSION: 1. Distal esophagitis, mild. 2. Gastritis, mild. 3. PEG tube replacement carried out through the old G-tube stoma with a different intragastric exit site. The patient tolerated the procedure well. PLAN: G-tube to drain to gravity x24 hours and then can use. Restrain the patient. Apply abdominal binder. Jeffery Campbell MD [facility] [place] /[id number] cc: Bartolo Townsend MD
[2019-08-19] MEDS ORDERED: PROPOFOL IV EMULSION 10 MG/ML 20 ML VIAL ONE (19:47)
[2019-08-19] MEDS ORDERED: LIDOCAINE HCL 2% LOCAL INJ 5 ML SDV VIAL INJ ONE (19:47)
[2019-08-19] MEDS ORDERED: CEFAZOLIN SOD 1 GM VIAL ONE (19:47)
[2019-08-19] MEDS: INSULIN GLARGINE 100 UNITS/ML VIAL SQ SCH (20:28)
[2019-08-20] VITALS (17 sets, daily range): BP systolic 98–122; BP diastolic 53–102
[2019-08-20] MEDS: METRONIDAZOLE 500MG/NS 100ML 100 ML IV SCH ×3 (05:28→20:52)
[2019-08-20] MEDS: INSULIN REGULAR, HUMAN 100 UNIT/1 ML 3ML VIAL SQ SCH ×4 (05:43→23:45)
[2019-08-20 07:56] LABS: BASOPHILS % 0.4 % (0.0-1.0); EOSINOPHILS # (AUTO) 0.1 (0.0-0.4); EOSINOPHILS % 1.8 % (0.0-6.0); HEMATOCRIT 36.7 % (38.2-49.6); HEMOGLOBIN 11.1 g/dL (14.0-18.0); LYMPHOCYTES # (AUTO) 0.9 (1.0-3.2); LYMPHOCYTES % 12.9 % (18.0-39.1); MEAN CORPUSCULAR HEMOGLOBIN 25.4 pg (28-32); MEAN CORPUSCULAR HGB CONC 30.2 g/dL (31-35); MONOCYTES # (AUTO) 0.6 (0.2-0.8); MONOCYTES % 9.4 % (4.4-11.3); NEUTROPHILS % 73.3 % (38.7-80.0); PLATELET COUNT 129 x10e3/uL (140-360); RED BLOOD COUNT 4.37 x10e6/uL (4.3-5.7); RED CELL DISTRIBUTION WIDTH 20.4 % (11.7-14.4)
[2019-08-20 08:21] LABS: ANION GAP 15.6 mmol/L (8-16); CALCIUM 8.7 mg/dL (8.4-10.2); CREATININE, SERUM 1.48 mg/dL (0.72-1.25); POTASSIUM 3.6 mmol/L (3.5-5.1)
[2019-08-20] MEDS: METOPROLOL TARTRATE 50 MG TAB PO SCH ×2 (09:00→18:07)
[2019-08-20] MEDS: ASPIRIN 81 MG CHEW TAB PO SCH (09:48)
[2019-08-20] MEDS: FUROSEMIDE INJ 10 MG/ML 4 ML VIAL IV SCH ×2 (09:48→20:52)
[2019-08-20] MEDS: AMIODARONE HCL 200 MG TAB PO SCH ×3 (09:49→20:52)
[2019-08-20 09:55] LABS: EOSINOPHILS % (MANUAL) 1 % (0-7); LYMPHOCYTES % (MANUAL) 7 % (19-48); MONOCYTES % (MANUAL) 4 % (3.4-9.0); NEUTROPHILS % (MANUAL) 86 % (40-74); PLATELET ESTIMATE SLIGHTLY DECREASED; PLATELET MORPHOLOGY COMMENT NORMAL; RBC MORPHOLOGY COMMENT NORMAL
[2019-08-20 09:56] LABS: POLYCHROMASIA FEW
[2019-08-20 09:57] LABS: ANISOCYTOSIS MODERATE
--- NOTE | 2019-08-20 10:17 | NUR ---
INFECTIOUS DISEASE PROGRESS NOTE CC: SOB SUBJECTIVE: Mr. Brewer remains in ICU. He is comfortable still, but confused, still weak. s/p intubation and thoracentesis. Awake alert in bed, restraints. REVIEW OF SYSTEMS: per RN, stable, remains confused OBJECTIVE: VITAL SIGNS: Stable, afebrile. GENERAL: weak, debilitated, Alert HEENT: He is not icteric. NECK: Supple. no JVD CHEST: Decreased breath sounds HEART: S1 and S2. No S3, S4, or murmur. ABDOMEN: Soft. Bowel sounds present. EXTREMITIES: +1 edema BLE SKIN: No rash. RADIOLOGY: IMPRESSION: Cardiomegaly and increased pulmonary edema. Small bilateral pleural effusions with lower lung zone opacities, likely atelectasis, although infection is possible in the appropriate clinical setting. FINDINGS/IMPRESSION: Modified barium swallow was performed by the speech pathologist. The radiologist was not present for the examination. Provided images demonstrate subglottic tracheal aspiration of contrast material. Please refer to speech pathology notes for further details. LABS: REVIEWED IMPRESSION: 69 year old male with known CAD and previous stents, CHF, admitted with increasing SOB. No fever, no leukocytosis. Patient previously on vent support, n ow extubated. PMH: metal delay, CKD, CAD with previous PCI to LAD, PVD, HTN, dyslipidemia, asthma, previous cataract surgery, and cardiomyopathy. 1. Community-acquired pneumonia 2. Respiratory failure, resolved 3. Debility 4. Shock Liver 5. UTI, history 6. HTN 7. Pleural Effusions s/p thoracentesis 8. Stage 2 Decubitus ulcer 9. Sepsis 10. Aspiration pneumonia PLAN: 08/20/19: s/p PEG tube placement. He is currently on metronidazole and cefepime for aspiration pneumonia. Plan to give him 7 days. Supportive care per critical care team. 08/18/19: MBS performed, patient failed consistencies. PEG tube placement planned for today. Speech to continue to work with patient. On Cefepime and Flagyl. Afebrile, without leukocytosis. Supportive care per ICU team 08/17/19: MBS scheduled for today. Patient alert today, communicating. HIT panel pending. Aspiration pneumonia suspected along with pulmonary edema. Will change to Cefepime and Flagyl. Afebrile and Leukocytosis resolved 08/16/19: Continue Rocephin. HIT panel pending, with Heparin on hold. Await final pleural fluid culture results. Supportive care per ICU team. DISCUSSED WITH DR. BESS
--- NOTE | 2019-08-20 13:39 | NUR ---
Dr Teagan Campbell agrees to resume anticoagulation.
[2019-08-20] MEDS: DEXTROSE 5% 1,000 ML IV SCH (15:45)
--- NOTE | 2019-08-20 15:47 | NUR ---
MARIA E and Isa RIBEIRO spoke with pt's brother Tahir Brewer [phone] Townsend to accommodate time to meet to discuss plan of care. Dr. Townsend states he can't give a specific time that he will be here tomorrow, but said he can call pt's brother if they are not here at the same time. Informed pt's brother. He states he will be here tomorrow morning around 8:15-8:30. Will meet with Isa RIBEIRO when he gets here in the morning. Elsy DU was updated.
[2019-08-20] MEDS ORDERED: SODIUM BICARBONATE 8.4% SYRING 150 ML in DEXTROSE 5% 1,000 ML IV SCH (16:30)
--- NOTE | 2019-08-20 17:00 | NUR ---
Orellana cath removed, balloon intact. No complications noted. DTV 6 hr @ 2300.
[2019-08-20] MEDS: APIXAB 2.5 MG TABLET PO SCH (17:03)
[2019-08-20] MEDS: CEFEPIME 1GM/NS 0.9% 50 ML 50 ML IV SCH (17:04)
--- NOTE | 2019-08-20 19:02 | NUR ---
Pulmonary Medicine DATE 08/20/2019 SUBJECTIVE: enamorado in place RA fio2 tube feeds 10/hr water 37 cc q 2 hrs REVIEW OF SYSTEMS: Cannot get, poor voice PHYSICAL EXAMINATION: VITAL SIGNS: vital signs noted per record. GENERAL: alert, tries to talk, weak HEENT: Normocephalic, atraumatic. NECK: Supple. Throat midline. LUNGS: Bilateral air entry is limited, decreased breath sounds. CARDIOVASCULAR: S1 and S2. No murmurs, rubs, or gallops. ABDOMEN: Soft and nontender. EXTREMITIES: No clubbing. No cyanosis. 1+ edema. INTEGUMENT: No rash. No purpura. LABORATORY DATA: k 3.6, cr 1.48, wbc 6.8, hct 37, plt 129 IMPRESSION AND PLAN: 1. Acute respiratory failure, intubated/extubated 2. Shock, septic. Resolved 3. Acute kidney failure. Resolving CKD stage III? 4. Acute liver failure, shock liver +/- other. Continued elevation 5. Atrial fibrillation with rapid ventricular rate, better? 6. Abnormal chest radiography, fluid overload component. BNP 1000. 6. Abnormal chest radiography, treat for pneumonia. 7. UTI complicated 8. Elevated alkaline phosphatase and elevated total bilirubin. 9. hx CAD, s/p PCI x 3 10. Peripheral vascular disease. 11. Hypertension. 12. Diabetes. 13. Hyperlipidemia. 14. Reported asthma. 15. Hx mental delay. 16. Pleural effusions moderate. s/p right thoracentesis 17. stage II decubitus ulcer sacral, present on admit 18. dysphagia, s/p peg and peg dislodgement wean off IVF Dextrose low dose Continue training with ST continue PEG care -escalate enteral nutrition and water Continue diuretics, follow UOP. -suspect he will not need another thoracentesis... contralateral thoracentesis with 600 cc only and CXR is improving -repeat am CXR Oxygen per protocol Continue rate control as per Cardiology Antibiotics per ID. continue glycemic control further if needed dc enamorado soon HIT negative, restart lovenox when ok by GI PT follow up Thank you very much, Dr. Townsend, for allowing me a chance to participate in the care of Mr. Brewer. Please call for questions.
[2019-08-20] MEDS: INSULIN GLARGINE 100 UNITS/ML VIAL SQ SCH (20:53)
[2019-08-21] VITALS (12 sets, daily range): BP systolic 99–131; BP diastolic 52–86
[2019-08-21] MEDS: METRONIDAZOLE 500MG/NS 100ML 100 ML IV SCH ×3 (05:10→22:13)
[2019-08-21] MEDS: INSULIN REGULAR, HUMAN 100 UNIT/1 ML 3ML VIAL SQ SCH ×4 (05:52→23:35)
--- NOTE | 2019-08-21 09:36 | NUR ---
BROTHER HERE IN ROOM WITH PT. HAD HIM SPEAK WITH DR BROWN ABOUT PLAN OF CARE, TALKED ABOUT ASSISTED CARE PLACEMENT AND THE NEED FOR 24 HOUR CARE, POSSIBLY HOSPICE. WILL CONTINUE TO MONITOR AND MAKE APPROPRIATE REFERRALS WHEN ORDERED.
[2019-08-21] MEDS: FUROSEMIDE INJ 10 MG/ML 4 ML VIAL IV SCH ×2 (09:49→22:13)
[2019-08-21] MEDS: ASPIRIN 81 MG CHEW TAB PO SCH (09:49)
[2019-08-21] MEDS: AMIODARONE HCL 200 MG TAB PO SCH ×3 (09:49→22:13)
[2019-08-21] MEDS: METOPROLOL TARTRATE 50 MG TAB PO SCH ×2 (09:49→15:59)
[2019-08-21] MEDS: APIXAB 2.5 MG TABLET PO SCH ×2 (09:49→15:59)
--- NOTE | 2019-08-21 10:07 | Diagnostic Imaging Report ---
EXAMINATION: CHEST SINGLE (PORTABLE) INDICATION: Respiratory failure COMPARISON: Chest radiograph 08/19/2019 FINDINGS: LINES/TUBES:EKG leads overlie the chest. LUNGS:The lungs are moderately inflated. Acro edema There is left basilar opacity silhouetting the left penny diaphragm. PLEURA:Possible small left pleural effusion. No pneumothorax. MEDIASTINUM:Cardiomediastinal silhouette is stably enlarged. BONES/SOFT TISSUES:No acute osseous injury. ABDOMEN:Pneumoperitoneum, new compared to the prior chest radiograph of 08/19/2019. IMPRESSION: New pneumoperitoneum. Unchanged cardiomegaly and pulmonary interstitial edema. Possible small left pleural effusion. Signed by: Radha Rose MD on 08/21/2019 10:04 AM
--- NOTE | 2019-08-21 11:08 | NUR ---
dr hilton notified of pneumoperituneum on xray.
--- NOTE | 2019-08-21 13:22 | NUR ---
SUBJECTIVE: Mr. Brewer remains in ICU. He is comfortable still, but confused, still weak. s/p intubation and thoracentesis. Awake alert in bed, restraints. REVIEW OF SYSTEMS: per RN, stable, remains confused OBJECTIVE: VITAL SIGNS: Stable, afebrile. GENERAL: weak, debilitated, Alert HEENT: He is not icteric. NECK: Supple. no JVD CHEST: Decreased breath sounds HEART: S1 and S2. No S3, S4, or murmur. ABDOMEN: Soft. Bowel sounds present. EXTREMITIES: +1 edema BLE SKIN: No rash. RADIOLOGY: IMPRESSION: Cardiomegaly and increased pulmonary edema. Small bilateral pleural effusions with lower lung zone opacities, likely atelectasis, although infection is possible in the appropriate clinical setting. FINDINGS/IMPRESSION: Modified barium swallow was performed by the speech pathologist. The radiologist was not present for the examination. Provided images demonstrate subglottic tracheal aspiration of contrast material. Please refer to speech pathology notes for further details. LABS: REVIEWED IMPRESSION: 69 year old male with known CAD and previous stents, CHF, admitted with increasing SOB. No fever, no leukocytosis. Patient previously on vent support, n ow extubated. PMH: metal delay, CKD, CAD with previous PCI to LAD, PVD, HTN, dyslipidemia, asthma, previous cataract surgery, and cardiomyopathy. 1. Community-acquired pneumonia 2. Respiratory failure, resolved 3. Debility 4. Shock Liver 5. UTI, history 6. HTN 7. Pleural Effusions s/p thoracentesis 8. Stage 2 Decubitus ulcer 9. Sepsis 10. Aspiration pneumonia PLAN: 08/20/19: s/p PEG tube placement. He is currently on metronidazole and cefepime for aspiration pneumonia. Plan to give him 7 days. Supportive care per critical care team. 08/18/19: MBS performed, patient failed consistencies. PEG tube placement planned for today. Speech to continue to work with patient. On Cefepime and Flagyl. Afebrile, without leukocytosis. Supportive care per ICU team [phone]
--- NOTE | 2019-08-21 14:15 | NUR ---
Nutrition Intervention Note RD Recommendation(s) for Physician: - Recommend Glucerna 1.2 @ goal rate of 60 mL/hr. Water flushes and fluid management per MD. (provides 1728 kcal, 86 g protein, and 1159 mL water) Plan of Care: RD following, monitoring for tolerance and adequacy, TF rec Nutrition reason for involvement: follow up RD Assessment 08/20: Follow up. RN stated pt is tolerating Glucerna 1.2 @ 50 mL/hr. Recommend increasing goal rate to 60 mL/hr to better meet pt's estimated nutrition needs. Informed RN of recommendation. Will continue to monitor. 08/17: Follow up. Pt out of room at time of visit for PEG placement. Pt with MBS yesterday showing signs of aspiration. TF rec's discussed with RN on unit. Chart reviewed. Will continue to monitor. 08/13: Follow up. Pt was extubated yesterday. REHABILITATION CASEWORKER evaluated pt today and recommended that pt remain NPO and consider NGT for nutrition. Will continue to monitor. 08/10: Follow up. Pt remains intubated, currently on pressor support of Levophed. Pt continues on TF via OGT of Glucerna 1.2- not appropriate TF for pressor use and not able to meet protein needs. TF held yesterday 2/2 tube feeding colored liquid noted during suctioning per chart. Noted total of 400 ml tube feed given since yesterday. Plan to wean Levophed today per chart. Attempted to call RN x 2 to discuss TF rec's, RN not available. TF rec's for Vital AF remain appropriate. Will continue to monitor. 08/07: 69yo M, who is admitted for acute respiratory failure, on mechanical ventilator support. Pt is currently on droplet isolation and no family on bedside. Per RN, pt is on Levophed @11mcg/min and Glucerna 1.2 @20mL/hr. Pt has not started on HD. Rec to keep trickle feeding until pt is more hemodynamically stable. Please consult for TF recommendation if pts status changed. Principal Problems/Diagnoses: Respiratory failure, on mechanical ventilator support. PMH: Mental delay, history of transient dialysis in June 2019, August 2017, heart catheterization with PCI to LAD, peripheral vascular disease with right ICA 57% ultrasonographic blockage in November 2018, hypertension, diabetes, hyperlipidemia, asthma, bilateral cataract surgery, PCI x3 GI: LBM 4/27 Skin: Stage II sacral ulcer Labs: 08/19: Na 138, K 3.6, BUN 38, Cr 1.48, Glu 94 08/17: Na 137, K 3.4, BUN 44, Cr 1.55, Gluc 87, POC Gluc 82-95 08/13: Na 133, BUN 54, Creat 2.08, Ca 8.3, Total Bili 2.2, AST 66, ALT 111 08/10: Na 135, K 3.4, BUN 54, Cr 2.53, Gluc 164, POC Gluc 175-242 Meds: lasix, amiodarone, metoprolol, insulin Ht: 67in Wt: 182 lb BMI: 28.5kg/m2 IBW: 148lb +/- 10% Malnutrition Evaluation (08/08/2019) Unable to assess at this time. Will re-evaluate at follow-up as appropriate. Nutrition Prescription (Diet Order): Glucerna 1.2 @ 50 ml/hr with free water 150 mL q8hrs Estimated Nutritional Needs: Calories: 1655 2068 kcal (20-25kcal/kg/d) Weight used: 82.7 kg (182 lbs) Protein: 83 124g (1-1.5g/kg/d) Weight used: 82.7 kg (182 lbs) Diet Adequacy: Not meeting calorie needs, Not meeting protein needs with current tube feed order Tolerance: tolerating TF Diet Education Needs Assessment: Diet education not indicated, patient on temporary/transition diet. Nutrition Care Level: Moderate Nutrition Diagnosis: Inadequate oral intake related to current medical status as evidenced by pt requiring EN as main source of nutrition. Goal: Patient will meet 75-100% of estimated needs by follow up Progress: progressing Interventions: EN - Composition, Rate, Route, Recommended modifications Monitoring/Evaluation: Total energy intake, Total protein intake, Formula/Solution, Weight change Signed: Angie Rivero RD, [place]
--- NOTE | 2019-08-21 15:29 | NUR ---
Pulmonary Medicine DATE 08/21/2019 SUBJECTIVE: stood and took 2 steps NPO now tube feeds 50/ water small 100% saturation RA fio2 REVIEW OF SYSTEMS: Cannot get, poor voice PHYSICAL EXAMINATION: VITAL SIGNS: vital signs noted per record. GENERAL: alert, tries to talk, weak HEENT: Normocephalic, atraumatic. NECK: Supple. Throat midline. LUNGS: Bilateral air entry is limited, decreased breath sounds. CARDIOVASCULAR: S1 and S2. No murmurs, rubs, or gallops. ABDOMEN: Soft and nontender. EXTREMITIES: No clubbing. No cyanosis. 1+ edema. INTEGUMENT: No rash. No purpura. LABORATORY DATA: k 3.6, cr 1.48, wbc 6.8, hct 37, plt 129 IMPRESSION AND PLAN: 1. Acute respiratory failure, intubated/extubated 2. Shock, septic. Resolved 3. Acute kidney failure. Resolving CKD stage III? 4. Acute liver failure, shock liver +/- other. Continued elevation 5. Atrial fibrillation with rapid ventricular rate, better? 6. Abnormal chest radiography, fluid overload component. BNP 1000. 6. Abnormal chest radiography, treat for pneumonia. 7. UTI complicated 8. Elevated alkaline phosphatase and elevated total bilirubin. 9. hx CAD, s/p PCI x 3 10. Peripheral vascular disease. 11. Hypertension. 12. Diabetes. 13. Hyperlipidemia. 14. Reported asthma. 15. Hx mental delay. 16. Pleural effusions moderate. s/p right thoracentesis 17. stage II decubitus ulcer sacral, present on admit 18. dysphagia, s/p peg and peg dislodgement dc IVF Dextrose Continue training with ST continue PEG care -escalate enteral nutrition and water Continue diuretics, follow UOP. -suspect he will not need another thoracentesis... contralateral thoracentesis with 600 cc only and CXR is improving -repeat am CXR Oxygen per protocol Continue rate control as per Cardiology. anticoagulation Antibiotics per ID. continue glycemic control further if needed HIT negative PT follow up Thank you very much, Dr. Townsend, for allowing me a chance to participate in the care of Mr. Brewer. Please call for questions.
[2019-08-21] MEDS: CEFEPIME 1GM/NS 0.9% 50 ML 50 ML IV SCH (15:59)
--- NOTE | 2019-08-21 17:04 | NUR ---
WOUND CARE SCREENING/ CONSULT FOR 69 YO MALE HX OF ACUTE RESPIRATORY FAILURE ADITYA 13 ON MODERATE PUP STATUS AND INTERVENTIONS AND ALTERNATING PRESSURE MATTRESS. LABS: WBC-6.83 HGB-11.1 SKIN ASSESSMENT COMPLETE PATIENT PRESENTS WITH: 1)STAGE II PRESSURE ULCER TO POSTERIOR SACRO GLUTEAL AREA; MEASURING 2 CM X 0.9CM X 0.1 CM WITH MINIMAL SEROUSANGUINEOUS DRAINAGE, AND 90 % PINK GRANULATION, 10% YELLOW SLOUGH AND PINK BLANCHABLE PERIWOUND AREA . 2)PT PRESENTS WITH MULTIPLE HEALING SCABS TO BILATERAL LOWER LEGS. 3)PT PRESENTS WITH HEALING DARK PURPLE DISCOLORATION TO BILATERAL UPPER EXTREMITIES. 4)PT PRESENT WITH LIGHT PURPLE DISCOLORATION CIRCUMFERENTIAL TO TORSO DUE TO ABDOMINAL BAND IN PLACE. RECOMMENDATIONS: NURSING TO CONTINUE TO MONITOR PATIENT AND TO FOLLOW MODERATE PUP INTERVENTIONS NURSING TO CONTINUE TO GET PATIENT OUT OF BED FOR MEALS AND MUCH TOLERATED NURSING TO CLEAN STAGE II PRESSURE POSTERIOR SACROGLUTEAL AREA WITH NORMAL SALINE, PAT DRY WITH 4X4 GAUZE, APPLY FIBRACOL TO WOUND BED, THEN APPLY VENELEX OINTMENT TO PERIWOUND AND COVER WITH ALLEVYN FOAM DRESSING DAILY AND NEEDED. NURSING TO MONITOR ABDOMINAL BAND PLACEMENT DAILY. NURSING TO CONTINUE TO ASSIST PATIENT NEEDED WITH MEALS AND NUTRITIONAL SUPPLEMENTS TO ENSURE PROPER REQUIREMENTS FOR HEALING NURSING TO CONTINUE TO OFFLOAD FEET AND HEELS NEEDED WITH PILLOW SUSPENSION WHEN IN BED. NURSING TO APPLY BILATERAL HEEL PROTECTORS WHILE IN BED. NURSING TO REPOSITION PATIENT SIDE TO SIDE Q2H AND PRN. NURSING TO CONSULT WOUND CARE NEEDED. Addendum: 08/21/19 at 1707 by Joycelyn Gamble RN Amended: Links added.
[2019-08-21] MEDS: INSULIN GLARGINE 100 UNITS/ML VIAL SQ SCH (20:59)
[2019-08-21] MEDS: DEXTROSE 50% SYRINGE 50 ML IV PRN (23:36)
[2019-08-22] VITALS (11 sets, daily range): BP systolic 83–120; BP diastolic 51–73
[2019-08-22] MEDS: METRONIDAZOLE 500MG/NS 100ML 100 ML IV SCH (05:12)
[2019-08-22 05:39] LABS: ANION GAP 17.1 mmol/L (8-16); CALCIUM 8.5 mg/dL (8.4-10.2); CREATININE, SERUM 1.59 mg/dL (0.72-1.25); POTASSIUM 4.1 mmol/L (3.5-5.1)
[2019-08-22] MEDS: INSULIN REGULAR, HUMAN 100 UNIT/1 ML 3ML VIAL SQ SCH ×4 (05:42→22:47)
[2019-08-22 08:33] LABS: BASOPHILS % 0.5 % (0.0-1.0); EOSINOPHILS # (AUTO) 0.2 (0.0-0.4); EOSINOPHILS % 1.9 % (0.0-6.0); HEMATOCRIT 34.8 % (38.2-49.6); HEMOGLOBIN 10.9 g/dL (14.0-18.0); LYMPHOCYTES # (AUTO) 1.3 (1.0-3.2); LYMPHOCYTES % 16.2 % (18.0-39.1); MEAN CORPUSCULAR HEMOGLOBIN 25.8 pg (28-32); MEAN CORPUSCULAR HGB CONC 31.3 g/dL (31-35); MEAN CORPUSCULAR VOLUME 82.3 fL (81-99); MONOCYTES # (AUTO) 0.6 (0.2-0.8); MONOCYTES % 7.6 % (4.4-11.3); NEUTROPHILS # (AUTO) 5.8 (2.1-6.9); NEUTROPHILS % 72.1 % (38.7-80.0); PLATELET COUNT 129 x10e3/uL (140-360); RED BLOOD COUNT 4.23 x10e6/uL (4.3-5.7); RED CELL DISTRIBUTION WIDTH 21.3 % (11.7-14.4)
[2019-08-22] MEDS: FUROSEMIDE INJ 10 MG/ML 4 ML VIAL IV SCH ×2 (09:51→22:47)
[2019-08-22] MEDS: ASPIRIN 81 MG CHEW TAB PO SCH (09:51)
[2019-08-22] MEDS: AMIODARONE HCL 200 MG TAB PO SCH ×3 (09:51→22:47)
[2019-08-22] MEDS: APIXAB 2.5 MG TABLET PO SCH ×2 (09:51→17:00)
[2019-08-22] MEDS: METOPROLOL TARTRATE 50 MG TAB PO SCH ×2 (09:52→17:00)
[2019-08-22] MEDS: BALSAM PERU/CASTOR OIL 60 GM OINT...G. TP SCH (10:34)
--- NOTE | 2019-08-22 16:23 | NUR ---
Pulmonary Medicine DATE 08/22/2019 SUBJECTIVE: 1 L/min oxygen tube feeds 50/hr water 200 q 6hrs still trouble expectorating into mouth REVIEW OF SYSTEMS: Cannot get, poor voice PHYSICAL EXAMINATION: VITAL SIGNS: vital signs noted per record. GENERAL: alert, tries to talk, weak HEENT: Normocephalic, atraumatic. NECK: Supple. Throat midline. LUNGS: Bilateral air entry is limited, decreased breath sounds. CARDIOVASCULAR: S1 and S2. No murmurs, rubs, or gallops. ABDOMEN: Soft and nontender. EXTREMITIES: No clubbing. No cyanosis. 1+ edema. INTEGUMENT: No rash. No purpura. LABORATORY DATA: k 4.1, cr 1.59. wbc 8, hct 35, plt 129 IMPRESSION AND PLAN: 1. Acute respiratory failure, intubated/extubated 2. Shock, septic. Resolved 3. Acute kidney failure. Resolving CKD stage III? 4. Acute liver failure, shock liver +/- other. Continued elevation 5. Atrial fibrillation with rapid ventricular rate, better? 6. Abnormal chest radiography, fluid overload component. BNP 1000. 6. Abnormal chest radiography, treat for pneumonia. 7. UTI complicated 8. Elevated alkaline phosphatase and elevated total bilirubin. 9. hx CAD, s/p PCI x 3 10. Peripheral vascular disease. 11. Hypertension. 12. Diabetes. 13. Hyperlipidemia. 14. Reported asthma. 15. Hx mental delay. 16. Pleural effusions moderate. s/p right thoracentesis 17. stage II decubitus ulcer sacral, present on admit 18. dysphagia, s/p peg and peg dislodgement Continue training with ST continue PEG care -escalate enteral nutrition and water Continue diuretics, follow UOP. -suspect he will not need another thoracentesis... contralateral thoracentesis with 600 cc only and CXR is improving Oxygen per protocol Continue rate control as per Cardiology. anticoagulation Antibiotics per ID. continue glycemic control further if needed PT follow up Thank you very much, Dr. Townsend, for allowing me a chance to participate in the care of Mr. Brewer. Please call for questions.
[2019-08-22] MEDS: CEFEPIME 1GM/NS 0.9% 50 ML 50 ML IV SCH (17:00)
--- NOTE | 2019-08-22 17:40 | Progress Note ---
DATE: SUBJECTIVE: Mr. remains in intensive care unit, but clinically seems to be doing well and is stable. His IJ was removed. There was some redness around it. There is no fever. No chills. There is no pus. PHYSICAL EXAMINATION: GENERAL: He is currently alert, comfortable. VITAL SIGNS: Stable, afebrile. HEENT: He is not icteric. NECK: Supple. CHEST: Clear. COR: S1 and S2. No S3, S4 or murmur. ABDOMEN: Soft. IMPRESSION: Sepsis on admission resolved, pneumonia on admission improved, community-acquired pneumonia, respiratory failure resolved, arrhythmia, concerned about cellulitis where an IJ site. We will give 1 g vancomycin for his chronic kidney disease . Discontinue Rocephin tomorrow. Can leave ICU from Infectious Disease point of view. MD HOLLY Pena/MODL /[id number]
--- NOTE | 2019-08-22 17:40 | Progress Note ---
DATE: SUBJECTIVE: Mr. Brewer remains in intensive care unit, off the vent, comfortable. His vitals are stable, a little bit confused and also very weak. PHYSICAL EXAMINATION: GENERAL: Currently alert. VITAL SIGNS: Stable. Afebrile. HEENT: Not icteric. NECK: Supple. CHEST: Clear. HEART: S1, S2. No S3, S4 or murmur. ABDOMEN: Soft. Bowel sounds present. No tenderness. EXTREMITIES: No edema. He underwent EGD, placement of G-tube, percutaneous PEG tube placement and replacement. He had distal esophagitis, which was mild. GI is following. IMPRESSION: 1. Debility. Family aware. They are thinking about skilled and then maybe from there consider comfort care. 2. Status post aspiration pneumonia. 3. Confusion. 4. Altered mental status, status post PEG tube placement x2. We will follow. Further recommendations depending on clinical progress, but outflow is very guarded. Agree with care. Discussed with telemedicine. MD HOLLY Pena/DANA /[id number]
[2019-08-22] MEDS: INSULIN GLARGINE 100 UNITS/ML VIAL SQ SCH (22:55)
[2019-08-23] VITALS (8 sets, daily range): BP systolic 99–147; BP diastolic 64–80
[2019-08-23] MEDS: INSULIN REGULAR, HUMAN 100 UNIT/1 ML 3ML VIAL SQ SCH ×4 (06:00→23:54)
[2019-08-23] MEDS: BALSAM PERU/CASTOR OIL 60 GM OINT...G. TP SCH (10:14)
[2019-08-23] MEDS: FUROSEMIDE INJ 10 MG/ML 4 ML VIAL IV SCH ×2 (10:18→21:14)
[2019-08-23] MEDS: AMIODARONE HCL 200 MG TAB PO SCH ×2 (10:18→16:27)
[2019-08-23] MEDS: APIXAB 2.5 MG TABLET PO SCH ×2 (10:18→16:27)
[2019-08-23] MEDS: METOPROLOL TARTRATE 50 MG TAB PO SCH ×2 (10:20→16:27)
[2019-08-23] MEDS: METRONIDAZOLE 500MG/NS 100ML 100 ML IV SCH ×2 (14:56→22:34)
[2019-08-23] MEDS: CEFEPIME 1GM/NS 0.9% 50 ML 50 ML IV SCH (16:27)
--- NOTE | 2019-08-23 16:28 | NUR ---
Pulmonary Medicine DATE 08/23/2019 SUBJECTIVE: 1 L/min oxygen tube feeds 50/ water 200 q6 hrs trouble expectorating, thick deep pharyngeal secretions heard REVIEW OF SYSTEMS: no bleed, no rash PHYSICAL EXAMINATION: VITAL SIGNS: vital signs noted per record. GENERAL: alert, weak HEENT: Normocephalic, atraumatic. NECK: Supple. Throat midline. LUNGS: Bilateral air entry is limited, decreased breath sounds. CARDIOVASCULAR: S1 and S2. No murmurs, rubs, or gallops. ABDOMEN: Soft and nontender. EXTREMITIES: No clubbing. No cyanosis. 1+ edema. INTEGUMENT: No rash. No purpura. LABORATORY DATA: no new updates IMPRESSION AND PLAN: 1. Acute respiratory failure, intubated/extubated 2. Shock, septic. Resolved 3. Acute kidney failure. Resolving CKD stage III? 4. Acute liver failure, shock liver +/- other. Continued elevation 5. Atrial fibrillation with rapid ventricular rate, better? 6. Abnormal chest radiography, fluid overload component. BNP 1000. 6. Abnormal chest radiography, treat for pneumonia. 7. UTI complicated 8. Elevated alkaline phosphatase and elevated total bilirubin. 9. hx CAD, s/p PCI x 3 10. Peripheral vascular disease. 11. Hypertension. 12. Diabetes. 13. Hyperlipidemia. 14. Reported asthma. 15. Hx mental delay. 16. Pleural effusions moderate. s/p right thoracentesis 17. stage II decubitus ulcer sacral, present on admit 18. dysphagia, s/p peg and peg dislodgement Continue training with ST continue PEG care -escalate enteral nutrition and water Continue diuretics, follow UOP. -suspect he will not need another thoracentesis... contralateral thoracentesis with 600 cc only and CXR is improving Trial of mucomyst for secretions. Not easy to deep suction the patient, but try if allowed Oxygen per protocol Continue rate control as per Cardiology. anticoagulation Antibiotics per ID. continue glycemic control further if needed PT follow up Thank you very much, Dr. Townsend, for allowing me a chance to participate in the care of Mr. Brewer. Please call for questions.
[2019-08-23] MEDS: INSULIN GLARGINE 100 UNITS/ML VIAL SQ SCH (21:14)
[2019-08-24] VITALS (10 sets, daily range): BP systolic 106–130; BP diastolic 72–98
[2019-08-24] MEDS: IPRATROPIUM BROMIDE 0.02% 2.5 ML NEB NEB SCH ×3 (00:10→19:05)
[2019-08-24] MEDS: ACETYLCYSTEINE 200 MG/ML 4ML VIAL INH SCH ×3 (00:10→19:05)
[2019-08-24] MEDS: METRONIDAZOLE 500MG/NS 100ML 100 ML IV SCH ×2 (05:08→15:15)
[2019-08-24 05:32] LABS: BASOPHILS # (AUTO) 0.1 (0.0-0.1); BASOPHILS % 0.4 % (0.0-1.0); EOSINOPHILS % 0.1 % (0.0-6.0); HEMATOCRIT 35.6 % (38.2-49.6); HEMOGLOBIN 11.1 g/dL (14.0-18.0); LYMPHOCYTES # (AUTO) 1.6 (1.0-3.2); LYMPHOCYTES % 14.2 % (18.0-39.1); MEAN CORPUSCULAR HEMOGLOBIN 25.3 pg (28-32); MEAN CORPUSCULAR HGB CONC 31.2 g/dL (31-35); MEAN CORPUSCULAR VOLUME 81.1 fL (81-99); MONOCYTES # (AUTO) 0.9 (0.2-0.8); MONOCYTES % 8.2 % (4.4-11.3); NEUTROPHILS # (AUTO) 8.1 (2.1-6.9); NEUTROPHILS % 72.6 % (38.7-80.0); PLATELET COUNT 217 x10e3/uL (140-360); RED BLOOD COUNT 4.39 x10e6/uL (4.3-5.7); RED CELL DISTRIBUTION WIDTH 22.5 % (11.7-14.4)
[2019-08-24 05:50] LABS: ANION GAP 16.7 mmol/L (8-16); CALCIUM 8.9 mg/dL (8.4-10.2); CREATININE, SERUM 2.1 mg/dL (0.72-1.25); POTASSIUM 4.7 mmol/L (3.5-5.1)
[2019-08-24] MEDS: INSULIN REGULAR, HUMAN 100 UNIT/1 ML 3ML VIAL SQ SCH ×3 (06:00→18:00)
[2019-08-24 06:19] LABS: PHOSPHORUS 4.1 MG/DL (2.3-4.7)
--- NOTE | 2019-08-24 06:43 | Diagnostic Imaging Report ---
EXAMINATION: CHEST SINGLE (PORTABLE) INDICATION: ^effusion ^[id number] ^[id number] COMPARISON: 08/21/2019 FINDINGS: AP view TUBES and LINES: None. LUNGS: No new lung consolidation. PLEURA: No pleural effusion or pneumothorax. HEART AND MEDIASTINUM: Stable cardiomegaly. BONES AND SOFT TISSUES: No acute osseous lesion. Soft tissues are unremarkable. UPPER ABDOMEN: Unchanged lucency under the right hemidiaphragm suggestive of free intraperitoneal air. IMPRESSION: Lucency underneath the right hemidiaphragm suggestive of pneumoperitoneum, unchanged when compared to the previous study from 3 days ago. The volume of free air does not appear appreciably increased. No new lung consolidation. Signed by: Sotero Faustin MD on 08/24/2019 6:39 AM
[2019-08-24 07:56] LABS: ANISOCYTOSIS MODERATE
[2019-08-24 07:57] LABS: POLYCHROMASIA FEW
[2019-08-24 07:59] LABS: POIKILOCYTOSIS SLIGHT
[2019-08-24 08:00] LABS: SCHISTOCYTES RARE
[2019-08-24 08:01] LABS: PLATELET ESTIMATE ADEQUATE; RBC MORPHOLOGY COMMENT ABNORMAL
[2019-08-24 08:04] LABS: BAND NEUTROPHILS % (MANUAL) 1 %; HYPOCHROMASIA SLIGHT; LYMPHOCYTES % (MANUAL) 13 % (19-48); MONOCYTES % (MANUAL) 3 % (3.4-9.0); MYELOCYTES % (MANUAL) 1 % (0-0); NEUTROPHILS % (MANUAL) 81 % (40-74); PLATELET MORPHOLOGY COMMENT RARE EDTA CLUMPING
[2019-08-24 08:05] LABS: GIANT PLATELETS FEW; LARGE PLATELETS FEW
[2019-08-24] MEDS: BALSAM PERU/CASTOR OIL 60 GM OINT...G. TP SCH (09:00)
[2019-08-24] MEDS: AMIODARONE HCL 200 MG TAB PO SCH ×2 (09:50→17:30)
[2019-08-24] MEDS: FUROSEMIDE INJ 10 MG/ML 4 ML VIAL IV SCH (09:50)
[2019-08-24] MEDS: APIXAB 2.5 MG TABLET PO SCH ×2 (09:52→17:30)
[2019-08-24] MEDS: METOPROLOL TARTRATE 50 MG TAB PO SCH ×2 (09:53→17:30)
--- NOTE | 2019-08-24 13:43 | NUR ---
Pulmonary Medicine DATE 08/24/2019 SUBJECTIVE: tube feeds 50/hr water 200 q 6hrs 2 L/min oxygen CXR stable REVIEW OF SYSTEMS: no bleed, no rash PHYSICAL EXAMINATION: VITAL SIGNS: vital signs noted per record. GENERAL: alert, weak HEENT: Normocephalic, atraumatic. NECK: Supple. Throat midline. LUNGS: Bilateral air entry is limited, decreased breath sounds. CARDIOVASCULAR: S1 and S2. No murmurs, rubs, or gallops. ABDOMEN: Soft and nontender. EXTREMITIES: No clubbing. No cyanosis. 1+ edema. INTEGUMENT: No rash. No purpura. LABORATORY DATA: 132 na, k 4.7, cr 2.1. wbc 11, hct 35 wbc 11, hct 36, plt 217 IMPRESSION AND PLAN: 1. Acute respiratory failure, intubated/extubated 2. Shock, septic. Resolved 3. Acute kidney failure. Resolving CKD stage III? 4. Acute liver failure, shock liver +/- other. Continued elevation 5. Atrial fibrillation with rapid ventricular rate, better? 6. Abnormal chest radiography, fluid overload component. BNP 1000. 6. Abnormal chest radiography, treat for pneumonia. 7. UTI complicated 8. Elevated alkaline phosphatase and elevated total bilirubin. 9. hx CAD, s/p PCI x 3 10. Peripheral vascular disease. 11. Hypertension. 12. Diabetes. 13. Hyperlipidemia. 14. Reported asthma. 15. Hx mental delay. 16. Pleural effusions moderate. s/p right thoracentesis 17. stage II decubitus ulcer sacral, present on admit 18. dysphagia, s/p peg and peg dislodgement Continue training with ST continue PEG care -escalate enteral nutrition and water Continue diuretics, follow UOP. Trial of mucomyst for secretions. Not easy to deep suction the patient, but try if allowed Oxygen per protocol Continue rate control as per Cardiology. anticoagulation Antibiotics per ID. continue glycemic control further if needed PT, OT follow up caution, creatinine escalating mildly ? Thank you very much, Dr. Townsend, for allowing me a chance to participate in the care of Mr. Brewer. Please call for questions.
--- NOTE | 2019-08-24 14:45 | NUR ---
SUBJECTIVE: Mr. Brewer remains in intensive care unit, off the vent, comfortable. His vitals are stable, a little bit confused and also very weak. PHYSICAL EXAMINATION: GENERAL: Currently alert. VITAL SIGNS: Stable. Afebrile. HEENT: Not icteric. NECK: Supple. CHEST: Clear. HEART: S1, S2. No S3, S4 or murmur. ABDOMEN: Soft. Bowel sounds present. No tenderness. EXTREMITIES: No edema. He underwent EGD, placement of G-tube, percutaneous PEG tube placement and replacement. He had distal esophagitis, which was mild. GI is following. IMPRESSION: 1. Debility. Family aware. They are thinking about skilled and then maybe from there consider comfort care. 2. Status post aspiration pneumonia. 3. Confusion. 4. Altered mental status, status post PEG tube placement x2. We will follow. Further recommendations depending on clinical progress, but outflow is very guarded. Agree with care. Discussed with telemedicine. [id number]
--- NOTE | 2019-08-24 15:30 | NUR ---
Handoff report to IMCU nurse, verbalized understanding.
--- NOTE | 2019-08-24 16:53 | NUR ---
PT ARRIVED VIA BED, ALERT TO SELF, ANSWERS APPROPRIATELY AT THIS TIME, PEG RESTARTED AT 50ML/HR PER MD ORDER, HOB ELEVATED, CONNECTED TO TELEMETRY , ORIENTED TO ROOM, PT'S PHONE AND BACK UP WORKER AT BEDSIDE, CALL LIGHT WITHIN REACH
[2019-08-24] MEDS ORDERED: FUROSEMIDE 40 MG TAB PO SCH (18:00)
--- NOTE | 2019-08-24 18:31 | Progress Note ---
DATE: SUBJECTIVE: Mr. Brewer remains in intensive care unit, confused, but comfortable. OBJECTIVE: VITAL SIGNS: Stable, afebrile. HEENT: Not icteric. NECK: Supple. CHEST: Clear bilateral. HEART: S1, S2. No S3, S4 or murmur. ABDOMEN: Soft. Bowel sounds present. Status post PEG tube. EXTREMITIES: No edema. IMPRESSION: 1. Status post sepsis, status post aspiration. We will discontinue antibiotic. 2. Continue PT/OT. Continue supportive care. The patient is leaving ICU for IMCU. He also would need physical therapy, nutritional support, and eventually placement at the skilled care facility. 3. Diabetes. Continue monitoring glucose. We will follow with you. Gerry South MD ZS/MODL /[id number]
[2019-08-24] MEDS: INSULIN GLARGINE 100 UNITS/ML VIAL SQ SCH (21:30)
[2019-08-25] VITALS (7 sets, daily range): BP systolic 103–124; BP diastolic 62–95
[2019-08-25 05:59] LABS: ALBUMIN 2.6 g/dL (3.5-5.0); ANION GAP 18.1 mmol/L (8-16); CALCIUM 8.8 mg/dL (8.4-10.2); CREATININE, SERUM 2.53 mg/dL (0.72-1.25); POTASSIUM 5.1 mmol/L (3.5-5.1)
[2019-08-25] MEDS: INSULIN REGULAR, HUMAN 100 UNIT/1 ML 3ML VIAL SQ SCH ×4 (06:00→19:51)
[2019-08-25] MEDS: IPRATROPIUM BROMIDE 0.02% 2.5 ML NEB NEB SCH ×2 (07:15→20:00)
--- NOTE | 2019-08-25 07:20 | NUR ---
Bedside report and walking rounds completed with on coming nurse. Patient in bed with call light within reach. No concerns or issues noted.
[2019-08-25] MEDS: ACETYLCYSTEINE 200 MG/ML 4ML VIAL INH SCH ×2 (07:25→20:00)
[2019-08-25] MEDS: APIXAB 2.5 MG TABLET PO SCH ×2 (09:18→17:56)
[2019-08-25] MEDS: BALSAM PERU/CASTOR OIL 60 GM OINT...G. TP SCH (09:18)
[2019-08-25] MEDS: AMIODARONE HCL 200 MG TAB PO SCH ×2 (09:18→17:56)
[2019-08-25] MEDS: METOPROLOL TARTRATE 50 MG TAB PO SCH ×2 (09:20→17:56)
--- NOTE | 2019-08-25 10:06 | NUR ---
CALLED AND LEFT MESSAGE WITH BROTHER BING TO RETURN CALL FOR PLAN OF CARE.
--- NOTE | 2019-08-25 10:54 | Progress Note ---
DATE: SUBJECTIVE: The patient is seen and evaluated with the nurse in his room. Overall, in no distress and overall weak and ill looking. REVIEW OF SYSTEMS: Unable to obtain secondary to the patient's medical condition. OBJECTIVE: VITAL SIGNS: Temperature is 97.7, pulse is 85, respirations ranging from 11 to 29 with blood pressure 124/69. GENERAL: Awake, in bed and congested a little bit with some edema in general. CV: S1 and S2. CHEST: Equal expansion. Crackles improved after cough. ABDOMEN: Obese, soft with positive bowel sounds. HEENT: Moist. No pallor. No JVD. EXTREMITIES: With edema and weak. MEDICATIONS: Medication is reviewed. As far as Infectious Disease point of view, the patient is off antibiotics currently. LABORATORY STUDIES: No new CBC from today, however, BMP showed sodium 133, potassium 5.1 with creatinine of 2.3 from today, which is gradually going up. MICROBIOLOGY: No new microbiology studies available. RADIOLOGY: Chest x-ray from yesterday shows lucency underneath the right hemidiaphragm, suggestive of pneumoperitoneum, unchanged when compared to the previous study from 3 days ago. The volume of free air does not appear appreciably increased and also shows no new lung consolidation. ASSESSMENT AND PLAN: 1. Sepsis, resolved-status post antibiotics. 2. Debility. 3. Diabetes. The patient is status post IV antibiotics, status post PEG tube placement, and plan is for the patient to be discharged with hospice. Discussed with Dr. South in detail. Please refer to chart for more information. Dictated by Omari Daley PA-C (Al) Gerry South MD /MODL /[id number]
[2019-08-25] MEDS ORDERED: FUROSEMIDE INJ 10 MG/ML 4 ML VIAL IV ONE (11:40)
--- NOTE | 2019-08-25 14:08 | NUR ---
SPOKE WIT [facility], WAS ABLE TO GET CHOICE FOR [facility]. FAXED CLINICALS FILED CHOICE IN CHART PUT COVID FORM ON CHART FOR MD TO SIGN. BROTHER BING IS TALKING WITH REST OF FAMILY AND THEN GOING TO MAKE FINAL DECISION ON PLACEMENT .
--- NOTE | 2019-08-25 14:43 | NUR ---
Pulmonary Medicine DATE 08/25/2019 SUBJECTIVE: tube feeds 50/hr water 30 q4 hrs 100% saturation RA fio2 REVIEW OF SYSTEMS: no bleed, no rash PHYSICAL EXAMINATION: VITAL SIGNS: vital signs noted per record. GENERAL: alert, weak HEENT: Normocephalic, atraumatic. NECK: Supple. Throat midline. LUNGS: Bilateral air entry is limited, decreased breath sounds. CARDIOVASCULAR: S1 and S2. No murmurs, rubs, or gallops. ABDOMEN: Soft and nontender. EXTREMITIES: No clubbing. No cyanosis. 1+ edema. INTEGUMENT: No rash. No purpura. LABORATORY DATA: k 5.1, bun 90, cr 2.53. wbc 11, hct 36, plt 217 IMPRESSION AND PLAN: 1. Acute respiratory failure, intubated/extubated 2. Shock, septic. Resolved 3. Acute kidney failure. Resolving CKD stage III? 4. Acute liver failure, shock liver +/- other. Continued elevation 5. Atrial fibrillation with rapid ventricular rate, better? 6. Abnormal chest radiography, fluid overload component. BNP 1000. 6. Abnormal chest radiography, treat for pneumonia. 7. UTI complicated 8. Elevated alkaline phosphatase and elevated total bilirubin. 9. hx CAD, s/p PCI x 3 10. Peripheral vascular disease. 11. Hypertension. 12. Diabetes. 13. Hyperlipidemia. 14. Reported asthma. 15. Hx mental delay. 16. Pleural effusions moderate. s/p right thoracentesis 17. stage II decubitus ulcer sacral, present on admit 18. dysphagia, s/p peg and peg dislodgement Continue training with ST continue PEG care and feeds Continue diuretics, follow UOP. Trial of mucomyst for secretions. PRN deep suction trial Oxygen per protocol Continue rate control as per Cardiology. anticoagulation Antibiotics per ID. continue glycemic control further if needed PT, OT follow up caution, creatinine escalating mildly ? doubt the patient with lots of fluid overload causing the airway crackling Thank you very much, Dr. Townsend, for allowing me a chance to participate in the care of Mr. Brewer. Please call for questions.
--- NOTE | 2019-08-25 16:35 | NUR ---
[facility] SPOKE WITH BROTHER BING, SHE ASKED THAT I FAX CLINICALS TO [facility] AND [facility] FOR PENDING APPROVAL. FAXED AND WILL CONTINUE TO FOLLOW UP.
--- NOTE | 2019-08-25 17:29 | NUR ---
Nutrition Intervention Note RD Recommendation(s) for Physician: - Recommend Glucerna 1.2 @ goal rate of 60 mL/hr. Water flushes and fluid management per MD. (provides 1728 kcal, 86 g protein, and 1159 mL water) - Consider water flushes of 30 ml q 4 hrs 2/2 concern for aspiration and current hyponatremia. Plan of Care: RD following, monitoring for tolerance and adequacy, TF rec Nutrition reason for involvement: follow up RD Assessment 08/24: Follow up. Pt reviewed during MDR. Pt continues on TF of Glucerna 1.2 at 50 ml/hr, tolerating well, however pt continues on high volume water flushes. Discussed with RN, recommended increasing TF to 60 ml/hr and decreasing water flushes. RN reports concern for aspiration as pt lowers HOB and total of volume of flushes currently. Will continue to monitor 08/20: Follow up. RN stated pt is tolerating Glucerna 1.2 @ 50 mL/hr. Recommend increasing goal rate to 60 mL/hr to better meet pt's estimated nutrition needs. Informed RN of recommendation. Will continue to monitor. 08/17: Follow up. Pt out of room at time of visit for PEG placement. Pt with MBS yesterday showing signs of aspiration. TF rec's discussed with RN on unit. Chart reviewed. Will continue to monitor. 08/13: Follow up. Pt was extubated yesterday. HELPDESK MANAGER evaluated pt today and recommended that pt remain NPO and consider NGT for nutrition. Will continue to monitor. 08/10: Follow up. Pt remains intubated, currently on pressor support of Levophed. Pt continues on TF via OGT of Glucerna 1.2- not appropriate TF for pressor use and not able to meet protein needs. TF held yesterday 2/2 tube feeding colored liquid noted during suctioning per chart. Noted total of 400 ml tube feed given since yesterday. Plan to wean Levophed today per chart. Attempted to call RN x 2 to discuss TF rec's, RN not available. TF rec's for Vital AF remain appropriate. Will continue to monitor. 08/07: 69yo M, who is admitted for acute respiratory failure, on mechanical ventilator support. Pt is currently on droplet isolation and no family on bedside. Per RN, pt is on Levophed @11mcg/min and Glucerna 1.2 @20mL/hr. Pt has not started on HD. Rec to keep trickle feeding until pt is more hemodynamically stable. Please consult for TF recommendation if pts status changed. Principal Problems/Diagnoses: Respiratory failure, on mechanical ventilator support. PMH: Mental delay, history of transient dialysis in June 2019, August 2017, heart catheterization with PCI to LAD, peripheral vascular disease with right ICA 57% ultrasonographic blockage in November 2018, hypertension, diabetes, hyperlipidemia, asthma, bilateral cataract surgery, PCI x3 GI: LBM 08/24 Skin: Stage II sacral ulcer Labs: 08/24: Na 133, K 5.1, BUN 90, Cr 2.53, Gluc 96 08/19: Na 138, K 3.6, BUN 38, Cr 1.48, Glu 94 08/17: Na 137, K 3.4, BUN 44, Cr 1.55, Gluc 87, POC Gluc 82-95 Meds: regular insulin, lantus, KCl IVPB Ht: 67in Wt: 182 lb BMI: 28.5kg/m2 IBW: 148lb +/- 10% Malnutrition Evaluation (08/25/19) Pt does not meet criteria for malnutrition at this time. Nutrition Prescription (Diet Order): Glucerna 1.2 @ 50 ml/hr with free water 150 mL q8hrs (1440 kcal, 72 gm protein) Estimated Nutritional Needs: Calories: 1655 2068 kcal (20-25kcal/kg/d) Weight used: 82.7 kg (182 lbs) Protein: 83 124g (1-1.5g/kg/d) Weight used: 82.7 kg (182 lbs) Diet Adequacy: meeting 87% kcal needs, meeting 87% protein needs Tolerance: tolerating TF Diet Education Needs Assessment: Diet education not indicated, patient on temporary/transition diet. Nutrition Care Level: Moderate Nutrition Diagnosis: Inadequate oral intake related to current medical status as evidenced by pt requiring EN as main source of nutrition. Goal: Patient will meet 75-100% of estimated needs by follow up Progress: progressing Interventions: EN - Composition, Rate, Route, Recommended modifications Monitoring/Evaluation: Total energy intake, Total protein intake, Formula/Solution, Weight change Signed: Sheryl Mccartney RD, LD, CNSC
[2019-08-25] MEDS: FUROSEMIDE INJ 10 MG/ML 4 ML VIAL IV SCH ×2 (17:56→19:50)
[2019-08-25] MEDS: INSULIN GLARGINE 100 UNITS/ML VIAL SQ SCH (21:13)
[2019-08-26] VITALS: BP 95/71
[2019-08-26] MEDS: DEXTROSE 50% SYRINGE 50 ML IV PRN (03:55)
[2019-08-26] MEDS: INSULIN REGULAR, HUMAN 100 UNIT/1 ML 3ML VIAL SQ SCH ×3 (05:51→12:00)
[2019-08-26] MEDS: IPRATROPIUM BROMIDE 0.02% 2.5 ML NEB NEB SCH (07:20)
[2019-08-26] MEDS: ACETYLCYSTEINE 200 MG/ML 4ML VIAL INH SCH (07:20)
--- NOTE | 2019-08-26 07:54 | NUR ---
GOT CONFIRMATIONS ON ALL FAXES SENT LAST NIGHT. SPOKE WITH REP, SOON ACCEPTED WILL LET STAFF KNOW.
[2019-08-26 08:12] VITALS: BP 84/62
[2019-08-26] MEDS: METOPROLOL TARTRATE 50 MG TAB PO SCH ×2 (08:16→17:25)
[2019-08-26] MEDS: BALSAM PERU/CASTOR OIL 60 GM OINT...G. TP SCH (08:16)
[2019-08-26 08:29] LABS: BASOPHILS % 0.3 % (0.0-1.0); EOSINOPHILS # (AUTO) 0.1 (0.0-0.4); EOSINOPHILS % 1.4 % (0.0-6.0); HEMATOCRIT 32.8 % (38.2-49.6); HEMOGLOBIN 10.4 g/dL (14.0-18.0); LYMPHOCYTES # (AUTO) 1.2 (1.0-3.2); LYMPHOCYTES % 17.7 % (18.0-39.1); MEAN CORPUSCULAR HEMOGLOBIN 25.4 pg (28-32); MEAN CORPUSCULAR HGB CONC 31.7 g/dL (31-35); MEAN CORPUSCULAR VOLUME 80.2 fL (81-99); MONOCYTES # (AUTO) 0.6 (0.2-0.8); MONOCYTES % 8.8 % (4.4-11.3); NEUTROPHILS # (AUTO) 4.7 (2.1-6.9); NEUTROPHILS % 67.9 % (38.7-80.0); PLATELET COUNT 223 x10e3/uL (140-360); RED BLOOD COUNT 4.09 x10e6/uL (4.3-5.7); RED CELL DISTRIBUTION WIDTH 22.6 % (11.7-14.4)
--- NOTE | 2019-08-26 08:30 | NUR ---
spoke with patients brother Tahir Brewer and updated on patients condition, discussed that if patient were to decline respiratory mckeon, and had to be re intubated was that there wishes for reintubation and patients brother said "no" and he would not want him to re intubated, Dr. Townsend informed and orders given to change code status to DNR, Dr. Townsend to call Tahir and discuss in detail patients condition.
[2019-08-26 08:49] LABS: ANION GAP 15.7 mmol/L (8-16); CALCIUM 8.4 mg/dL (8.4-10.2); CREATININE, SERUM 2.38 mg/dL (0.72-1.25); POTASSIUM 4.7 mmol/L (3.5-5.1)
[2019-08-26 09:00] VITALS: BP 84/62
--- NOTE | 2019-08-26 09:05 | Diagnostic Imaging Report ---
Examination: Single AP view of the chest. COMPARISON: 08/24/2019 INDICATION: CHF DISCUSSION: Lungs remain well-inflated. Hazy interstitial opacities with suspected small bilateral pleural effusions. Stable enlargement of the cardiac silhouette and prominence of the pulmonary vasculature. No acute osseous abnormality. Lucency under the right hemidiaphragm is no longer evident. IMPRESSION: Stable enlargement of the cardiac silhouette with pulmonary venous congestion and suspected small bilateral pleural effusions. Right subdiaphragmatic lucency concerning for pneumoperitoneum described on the comparison is less conspicuous on the current study. Signed by: Dr. Antonio Manning M.D. on 08/26/2019 9:01 AM
[2019-08-26 09:54] LABS: ABG HCO3 35 mmol/L (22-26); ABG PCO2 56 mmHg (35-45); ABG PO2 291 mmHg (80-105)
[2019-08-26] MEDS: FUROSEMIDE INJ 10 MG/ML 4 ML VIAL IV SCH (10:41)
[2019-08-26] MEDS: AMIODARONE HCL 200 MG TAB PO SCH ×2 (10:41→17:26)
[2019-08-26] MEDS: APIXAB 2.5 MG TABLET PO SCH ×2 (10:41→17:25)
--- NOTE | 2019-08-26 11:14 | Progress Note ---
DATE: SUBJECTIVE: The patient is seen and evaluated. Discussed with the nurse. Discussed with Dr. South. Available labs and notes reviewed. REVIEW OF SYSTEMS: Unable to obtain review of systems secondary to the patient's medical condition. PHYSICAL EXAMINATION: VITAL SIGNS: Temperature 97.4, pulse is 79, respiration 14, and blood pressure 84/62. GENERAL: Lethargic, nonresponsive, in bed. CV: S1 and S2. CHEST: Decreased breath sounds. Equal expansion. He is currently on 3 L of oxygen to nasal cannula. ABDOMEN: Soft, hypoactive. EXTREMITIES: With edema. MEDICATIONS: Medication list reviewed and as far as Infectious Disease point of view, the patient is off antibiotics. LABORATORY STUDIES: White blood cells , platelet 223. Sodium 133, potassium 4.7, creatinine 2.38. Toxicology, no new results. Serology, no new results. IMAGING: Chest x-ray from today showed enlargement of cardiac silhouette with pulmonary venous congestion, suspected small bilateral pleural effusion. Also right diaphragmatic lucency, concern for pneumoperitoneum described and comparison is less conspicuous on current study. ASSESSMENT AND PLAN: 1. Sepsis. 2. Diabetes. 3. Renal insufficiency. 4. Hypertension. 5. Coronary artery disease with a history of coronary stent. 6. Status post PEG tube placement. 7. The patient is with poor prognosis. Medications are adjusted. The patient is made DNR. Hospice in progress. Overall very ill. Please refer to chart for more information. Dictated by Omari Daley PA-C (Al) Gerry South MD /MODL /[id number]
--- NOTE | 2019-08-26 11:23 | NUR ---
ST Note: Recent events noted. Spoke with ODILIA Mata. Treatment deferred today. Will f/u if/when indicated.
[2019-08-26 12:00] VITALS: BP 99/67
--- NOTE | 2019-08-26 12:54 | NUR ---
Pulmonary Medicine DATE 08/26/2019 SUBJECTIVE: tube feeds held pt with increased respiratory difficulty during the night some AMS worse some yield on NTS, better breathing, more awake 4 L/min oxygen 100% sat REVIEW OF SYSTEMS: no bleed, no rash PHYSICAL EXAMINATION: VITAL SIGNS: vital signs noted per record. GENERAL: alert, weak HEENT: Normocephalic, atraumatic. NECK: Supple. Throat midline. LUNGS: Bilateral air entry is limited, decreased breath sounds. CARDIOVASCULAR: S1 and S2. No murmurs, rubs, or gallops. ABDOMEN: Soft and nontender. EXTREMITIES: No clubbing. No cyanosis. 1+ edema. INTEGUMENT: No rash. No purpura. LABORATORY DATA: cr 2.38, wbc 6.94, plt 223 IMPRESSION AND PLAN: 1. Acute respiratory failure, intubated/extubated 2. Shock, septic. Resolved 3. Acute kidney failure. Resolving CKD stage III? 4. Acute liver failure, shock liver +/- other. Continued elevation 5. Atrial fibrillation with rapid ventricular rate, better? 6. Abnormal chest radiography, fluid overload component. BNP 1000. 6. Abnormal chest radiography, treat for pneumonia. 7. UTI complicated 8. Elevated alkaline phosphatase and elevated total bilirubin. 9. hx CAD, s/p PCI x 3 10. Peripheral vascular disease. 11. Hypertension. 12. Diabetes. 13. Hyperlipidemia. 14. Reported asthma. 15. Hx mental delay. 16. Pleural effusions moderate. s/p right thoracentesis 17. stage II decubitus ulcer sacral, present on admit 18. dysphagia, s/p peg and peg dislodgement Continue training with ST continue PEG care and feeds Continue diuretics, follow UOP. Trial of mucomyst for secretions. PRN deep suction trial Oxygen per protocol Continue rate control as per Cardiology. anticoagulation Antibiotics per ID. continue glycemic control further if needed PT, OT follow up caution, creatinine escalating mildly ? doubt the patient with lots of fluid overload causing the airway crackling hospice being considered Thank you very much, Dr. Townsend, for allowing me a chance to participate in the care of Mr. Brewer. Please call for questions.
[2019-08-26 15:15] VITALS: BP 107/70
--- NOTE | 2019-08-26 17:26 | NUR ---
PATIENTS BROTHER TO ARRIVE IN [place] LATER THIS EVENING AND NO ONE HOME TO RECEIVE PATIENT AT THIS TIME, [facility] SITE AND [facility] WITH [facility] NOTIFIED, TRANSPORTATION TO BE CHANGED TO [facility] THIS EVENING.
[2019-08-26] MEDS ORDERED: FUROSEMIDE 40 MG TAB PEG SCH (18:00)
== END 2019-08-26 18:38 | disposition home or self-care (01) | DRG 870 ==
LOC: ER 12:10 → ERHOLD 15:39 → ICU 19:30 → IMCU 08-24 16:38
PROVIDERS: ADMIT Internal Medicine; ATTEND Internal Medicine
PROC: 5A1955Z Respiratory Ventilation, Greater than 96 Consecutive Hours (ICD-10-PCS; principal; 2019-08-07)
PROC: 0BH18EZ Insertion of Endotracheal Airway into Trachea, Via Natural or Artificial Opening Endoscopic (ICD-10-PCS; 2019-08-07)
PROC: 02HV33Z Insertion of Infusion Device into Superior Vena Cava, Percutaneous Approach (ICD-10-PCS; 2019-08-07)
PROC: B548ZZA Ultrasonography of Superior Vena Cava, Guidance (ICD-10-PCS; 2019-08-07)
PROC: 3E043XZ Introduction of Vasopressor into Central Vein, Percutaneous Approach (ICD-10-PCS; 2019-08-07)
PROC: 5A2204Z Restoration of Cardiac Rhythm, Single (ICD-10-PCS; 2019-08-07)
PROC: 0W993ZZ Drainage of Right Pleural Cavity, Percutaneous Approach (ICD-10-PCS; 2019-08-14)
PROC: 0DH63UZ Insertion of Feeding Device into Stomach, Percutaneous Approach (ICD-10-PCS; 2019-08-18)
PROC: 0DP68UZ Removal of Feeding Device from Stomach, Via Natural or Artificial Opening Endoscopic (ICD-10-PCS; 2019-08-19)
PROC: 0DH63UZ Insertion of Feeding Device into Stomach, Percutaneous Approach (ICD-10-PCS; 2019-08-19)
DX: A41.9 Sepsis, unspecified organism (principal); J96.00 Acute respiratory failure, unspecified whether with hypoxia or hypercapnia; I50.23 Acute on chronic systolic (congestive) heart failure; R57.0 Cardiogenic shock; R65.21 Severe sepsis with septic shock; J18.9 Pneumonia, unspecified organism; N17.0 Acute kidney failure with tubular necrosis; K72.00 Acute and subacute hepatic failure without coma; J69.0 Pneumonitis due to inhalation of food and vomit; N39.0 Urinary tract infection, site not specified; E87.2 Acidosis; K94.23 Gastrostomy malfunction; I48.19 Other persistent atrial fibrillation; I13.0 Hypertensive heart and chronic kidney disease with heart failure and stage 1 through stage 4 chronic kidney disease, or unspecified chronic kidney disease; L03.818 Cellulitis of other sites; E46 Unspecified protein-calorie malnutrition; I48.20 Chronic atrial fibrillation, unspecified; I82.612 Acute embolism and thrombosis of superficial veins of left upper extremity; I25.10 Atherosclerotic heart disease of native coronary artery without angina pectoris; Z95.5 Presence of coronary angioplasty implant and graft; N18.3 Chronic kidney disease, stage 3 (moderate); E11.51 Type 2 diabetes mellitus with diabetic peripheral angiopathy without gangrene; E78.5 Hyperlipidemia, unspecified; Z87.891 Personal history of nicotine dependence; E11.22 Type 2 diabetes mellitus with diabetic chronic kidney disease; J45.909 Unspecified asthma, uncomplicated; F79 Unspecified intellectual disabilities; K20.9 Esophagitis, unspecified; K29.70 Gastritis, unspecified, without bleeding; K44.9 Diaphragmatic hernia without obstruction or gangrene; R62.7 Adult failure to thrive; Z68.28 Body mass index [BMI] 28.0-28.9, adult; R13.10 Dysphagia, unspecified; Z83.3 Family history of diabetes mellitus; Z82.49 Family history of ischemic heart disease and other diseases of the circulatory system; Z82.5 Family history of asthma and other chronic lower respiratory diseases; R53.81 Other malaise; L89.152 Pressure ulcer of sacral region, stage 2; Z66 Do not resuscitate; J38.3 Other diseases of vocal cords; I25.2 Old myocardial infarction
CPT/HCPCS: 31720; 32555; 36415; 36600; 43246; 71045; 71250; 74018; 74176; 74230; 74470; 76604; 76705; 78227; 80048; 80053; 80162; 81001; 82550; 82553; 82607; 82746; 82805; 82945; 82948; 83036; 83615; 83690; 83735; 83880; 84080; 84100; 84157; 84443; 84484; 85002; 85025; 85610; 85730; 86022; 87040; 87070; 87086; 87205; 87635; 88112; 88305; 89051; 93005; 93306; 93971; 94002; 94003; 94640; 96372; 97139; 99251; 99284; A9537; J0690; J0692; J0696; J1160; J1650; J1815; J1817; J1940; J2001; J2250; J2370; J2920; J3370; J3480; J7030; J7050; J7060; J7070; J7121; J7799